=== PATIENT | male | born 1945 | race Caucasian/White ===

== ENCOUNTER 2022-01-12 12:44 | Outpatient (REF) | payer MEDICARE, SELFPAY ==
[2022-01-12 14:20] LABS: Basophils Absolute Auto 0.04 K/uL (0.00-0.30); Basophils Percent Auto 0.5 % (0.0-3.0); Eosinophils Absolute Auto 0.12 K/uL (0.00-0.50); Eosinophils Percent Auto 1.4 % (0.0-7.0); Hematocrit 45.8 % (37.0-53.0); Immature Granulocytes Abs Auto 0.02 K/uL (0.00-0.30); Lymphocytes Percent Auto 9.4 % (20-44); Mean Corpuscular HGB Conc 33 gm/dL (32-36); Mean Corpuscular Hemoglobin 30 pg (26-34); Mean Corpuscular Volume 91 fL (80-100); Monocytes Percent Auto 7.2 % (0.0-11.0); Neutrophils Percent Auto 81.3 % (42.0-72.0); Platelet Count* 235 K/uL (140-440); RDW Coefficient of Variation % 13.1 % (11.5-15.5); Red Blood Count 5.04 m/uL (4.30-5.90); White Blood Count* 8.63 K/uL (4.50-11.00)
[2022-01-12 14:29] LABS: Slide Review Reflex No
[2022-01-12 14:52] LABS: Chloride* 104 mmol/L (96-114); Potassium* 4.5 mmol/L (3.6-5.1); Sodium* 141 mmol/L (135-149)
[2022-01-12 14:54] LABS: Cholesterol* 181 mg/dL (90-199)
[2022-01-12 14:55] LABS: Blood Urea Nitrogen* 28 mg/dL (7-30); Calcium* 9.4 mg/dL (8.4-10.6); Carbon Dioxide* 28 mmol/L (20-32); Estimated Glomerular Filt Rate 77 ml/min; Glucose* 81 mg/dL (60-115); Triglycerides* 128 mg/dL (40-149)
[2022-01-12 14:56] LABS: HDL Cholesterol* 43 mg/dL (>=40); LDL Cholesterol Calculated 112 mg/dL (<100)
== END 2022-01-12 12:45 | disposition home or self-care (01) ==
LOC: NPINS 12:44
PROVIDERS: PCP Family Medicine; Visit Provider Nurse Practitioner Gerontology
DX: E78.5 Hyperlipidemia, unspecified (principal); Z79.899 Other long term (current) drug therapy
CPT/HCPCS: 80048; 80061; 85025

== ENCOUNTER 2022-02-22 17:25 | Inpatient (IN) | payer MEDICARE, SELFPAY ==
[2022-02-22 17:42] VITALS: BP 121/78; PULSE 120; RESP 24; TEMP 37.1; O2SAT 93; BMI 23.4
--- NOTE | 2022-02-22 17:51 | CRLHL7_ITS ---
For Patients: As a result of the Cures Act, medical imaging exams and procedure reports are released immediately into your electronic medical record. You may view this report before your referring provider. If you have questions, please contact your health care provider. Indication: Shortness of breath, fever Comparison: None available. Technique: Single AP view chest Findings: There is hyperinflation and chronic interstitial change. There is left basilar pleural effusion with adjacent compressive atelectasis versus infiltrates. The right hemithorax is clear. The cardiac silhouette is enlarged with a tortuous thoracic aorta. The bony thorax is grossly intact. Impression: Left basilar pleural effusion with adjacent compressive atelectasis versus infiltrates. Dictated by Nam Ortiz MD @ 02/22/2022 6:50:26 PM (Electronically Signed)
--- NOTE | 2022-02-22 17:52 | ED_ITS ---
HPI - General Adult General Chief complaint: Fever Stated complaint: Fever Time Seen by Provider: 02/22/22 17:35 History of Present Illness HPI narrative: This 76-year-old male comes in with his daughter. He lives in the assisted living facility nearby and apparently does not get any extra resources for living there other than the place to live. He reports that he did drink some water yesterday which he aspirated. Today he reports some mild cough and shortness of breath and was noted to have a temperature of 100.3?. He also has tachycardia with heart rate around 120 beats per minute. Oximetry is at 93% on room air. He does have a history of throat cancer for which she is not undergoing any treatment currently. Related Data Home Medications Medication Instructions Recorded Confirmed amlodipine 5 mg tablet mg 02/22/22 atenolol 50 mg tablet mg 02/22/22 carbidopa 25 mg-levodopa 100 mg tab 02/22/22 tablet lisinopril 20 mg tablet mg 02/22/22 Allergies Allergy/AdvReac Type Severity Reaction Status Date / Time No Known Drug Allergies Allergy Verified 02/22/22 17:41 Review of Systems Status of ROS: Reports: 10 or more systems reviewed and unremarkable except as noted in History and below Narrative: Constitutional: No fevers, no weight gain or loss. Eyes: No discharge. No vision changes. HENT: No congestion, no sore throat, no ear pain. Cardiovascular: No chest pain, no palpitations. Respiratory: Occasional cough and mild shortness of breath. Gastrointestinal: No abdominal pain, no vomiting, no diarrhea. Genitourinary: No dysuria, no hematuria. Musculoskeletal: Normal range of motion. Skin: No rashes, no pruritis. Neurological: No dizziness, weakness, sensory change, speech change. Endo/Heme/Allergies: No bruising or bleeding. No polydipsia. Pysch: no suicidality, no anxiety, no insomnia. All other systems reviewed and are negative. [facility] Social History Smoking Status: Smoker, status unknown Exam Narrative: Exam Narrative: Constitutional: Well-developed, well-nourished, no acute distress. HEENT: Normocephalic, atraumatic. Neck: Normal range of motion. Nontender. Supple. Heart: Regular. No murmurs. Tachycardia. Intact distal pulses. Lungs: Clear to auscultation. No chest discomfort. No wheezes, rhonchi, or rales. Abdomen: Normal bowel sounds. Nontender. No rebound tenderness. Genitalia: Deferred. Back: No midline tenderness. Normal range of motion. Extremities: Normal range of motion. No injury. Skin: Intact. No rash. Warm. No erythema or pallor. Neurologic: No altered sensation. No weakness. Alert and oriented. Psychiatric: No suicidality. No anxiety or depression. No insomnia. Nursing notes and vitals signs are reviewed. Const: Vital Signs, click to edit/add: Vital Signs - 24 hr 02/22/22 17:42 02/22/22 18:01 02/22/22 18:24 Temperature 98.7 F Pulse Rate [Right Pulse Oximeter] 120 H 98 Respiratory Rate 24 26 H Blood Pressure [Ri ght Upper Arm] 121/78 121/76 Pulse Oximetry 93 94 93 Oxygen Delivery Me thod Room Air Room Air Room Air 02/22/22 19:30 Temperature Pulse Rate [Right Pulse Oximeter] 97 Respiratory Rate 12 Blood Pressure [Ri ght Upper Arm] 131/79 Pulse Oximetry 96 Oxygen Delivery Me thod Course Vital Signs Vital signs: Initial Vital Signs Temperature 98.7 F 02/22/22 17:42 Temperature Source Temporal Artery Scan 02/22/22 17:42 Pulse Rate 120 H 02/22/22 17:42 Respiratory Rate 24 02/22/22 17:42 Blood Pressure 121/78 02/22/22 17:42 Blood Pressure Mean 92 02/22/22 17:42 Blood Pressure Position Sitting 02/22/22 17:42 Pulse Oximetry 93 02/22/22 17:42 Oxygen Delivery Method 02/22/22 17:42 Vital Signs Temperature 98.7 F 02/22/22 17:42 Pulse Rate 120 H 02/22/22 17:42 Respiratory Rate 24 02/22/22 17:42 Blood Pressure 121/78 02/22/22 17:42 Pulse Oximetry 93 02/22/22 17:42 Oxygen Delivery Method 02/22/22 17:42 Temperature 98.7 F 02/22/22 17:42 Pulse Rate 97 02/22/22 19:30 Respiratory Rate 12 02/22/22 19:30 Blood Pressure 131/79 02/22/22 19:30 Pulse Oximetry 96 02/22/22 19:30 Oxygen Delivery Method 02/22/22 18:24 Medical Decision Making [facility] Narrative Medical decision making narrative: This patient comes in with the suspicion of a aspiration pneumonia. He does arrive with tachypnea and tachycardia. He is maintaining sufficient oximetry on room air. He was noted to have a temperature of 100.3? F. An IV was established where he received a L of normal saline intravenously. His lactate returns at 2.0. Blood cultures were drawn. His white count is elevated at around 15,000. COVID and influenza were both negative. Chest x-ray does show evidence of a evolving infiltrate. The patient received IV doses of Rocephin and Zithromax. I did speak with the hospitalist over the horizon targeting supervisor, Dr. Logan, who will arrange for his admission when a bed becomes available. Lab Data Labs: Lab Results 02/22/22 02/22/22 02/22/22 Range/Units 17:45 17:45 17:45 WBC 15.79 H (4.50-11.00) K/uL RBC 4.74 (4.30-5.90) m/uL Hgb 14.1 (13.5-17.5) gm/dL Hct 41.8 (37.0-53.0) % MCV 88 (80-100) fL MCH 30 (26-34) pg MCHC 34 (32-36) gm/dL RDW Coeff of [place] 12.8 (11.5-15.5) % Plt Count 300 (140-440) K/uL Neut % (Auto) 91.1 H (42.0-72.0) % Lymph % (Auto) 1.9 L (20-44) % Finney % (Auto) 6.6 (0.0-11.0) % Eos % (Auto) 0.0 (0.0-7.0) % Baso % (Auto) 0.1 (0.0-3.0) % Neut # (Auto) 14.40 H (1.7-7.0) K/uL Lymph # (Auto) 0.30 L (0.90-2.90) K/uL Finney # (Auto) 1.00 H (0.00-0.90) K/UL Eos # (Auto) 0.00 (0.00-0.50) K/uL Baso # (Auto) 0.00 (0.00-0.30) K/uL Abs Immat Gran (auto) 0.04 (0.00-0.30) K/uL VBG pH (7.32-7.43) VBG pCO2 (40-50) mmHG VBG pO2 (25-47) mmHG VBG HCO3 (21-28) mmol/L Sodium 134 L (135-149) mmol/L Potassium 3.9 (3.6-5.1) mmol/L Chloride 99 (96-114) mmol/L Carbon Dioxide 28 (20-32) mmol/L BUN 23 (7-30) mg/dL Creatinine 1.1 (0.5-1.5) mg/dL Estimated Creat Clear 62.55 Estimated GFR 69 ml/min Glucose 162 H (60-115) mg/dL Lactate 2.0 H (0.5-1.9) mmol/L Calcium 9.4 (8.4-10.6) mg/dL SARS-CoV-2 (PCR) (Negative) Influenza Type A (PCR) (Negative) Influenza Type B (PCR) (Negative) 02/22/22 02/22/22 Range/Units 17:51 19:16 WBC (4.50-11.00) K/uL RBC (4.30-5.90) m/uL Hgb (13.5-17.5) gm/dL Hct (37.0-53.0) % MCV (80-100) fL MCH (26-34) pg MCHC (32-36) gm/dL RDW Coeff of [place] (11.5-15.5) % Plt Count (140-440) K/uL Neut % (Auto) (42.0-72.0) % Lymph % (Auto) (20-44) % Finney % (Auto) (0.0-11.0) % Eos % (Auto) (0.0-7.0) % Baso % (Auto) (0.0-3.0) % Neut # (Auto) (1.7-7.0) K/uL Lymph # (Auto) (0.90-2.90) K/uL Finney # (Auto) (0.00-0.90) K/UL Eos # (Auto) (0.00-0.50) K/uL Baso # (Auto) (0.00-0.30) K/uL Abs Immat Gran (auto) (0.00-0.30) K/uL VBG pH 7.415 (7.32-7.43) VBG pCO2 43 (40-50) mmHG VBG pO2 37.1 (25-47) mmHG VBG HCO3 27 (21-28) mmol/L Sodium (135-149) mmol/L Potassium (3.6-5.1) mmol/L Chloride (96-114) mmol/L Carbon Dioxide (20-32) mmol/L BUN (7-30) mg/dL Creatinine (0.5-1.5) mg/dL Estimated Creat Clear Estimated GFR ml/min Glucose (60-115) mg/dL Lactate (0.5-1.9) mmol/L Calcium (8.4-10.6) mg/dL SARS-CoV-2 (PCR) Negative SARS-CoV-2 (Negative) Influenza Type A (PCR) Negative PCR FLU A (Negative) Influenza Type B (PCR) Negative PCR FLU B (Negative) Imaging Data Chest x-ray: Radiologist's impression: Left basilar pleural effusion with adjacent compressive atelectasis versus infiltrates. ECG Data Attestation: I personally reviewed and interpreted this ECG as follows: Interpretation: Wide QRS rhythm. Left bundle branch block. Rate is 114 beats per minute. Discharge Plan Discharge Clinical Impression: Community acquired pneumonia Patient Disposition: Admitted As Inpatient Condition: Unchanged Prescriptions: No Action lisinopril 20 mg tablet Label Comments: Take 1 tablet by mouth every morning amlodipine 5 mg tablet Label Comments: Take 1 tablet by mouth every morning carbidopa-levodopa 25-100 mg tablet Label Comments: TAKE 1 TABLET BY MOUTH THREE TIMES DAILY atenolol 50 mg tablet Label Comments: TAKE 1 TABLET BY MOUTH DAILY Follow Up/Referrals: Francisco Navarro MD [Primary Care Provider] -
[2022-02-22 18:01] VITALS: O2SAT 94
[2022-02-22 18:07] LABS: Basophils Percent Auto 0.1 % (0.0-3.0); Hematocrit 41.8 % (37.0-53.0); Hemoglobin* 14.1 gm/dL (13.5-17.5); Immature Granulocytes Abs Auto 0.04 K/uL (0.00-0.30); Lymphocytes Percent Auto 1.9 % (20-44); Mean Corpuscular HGB Conc 34 gm/dL (32-36); Mean Corpuscular Hemoglobin 30 pg (26-34); Mean Corpuscular Volume 88 fL (80-100); Monocytes Percent Auto 6.6 % (0.0-11.0); Neutrophils Percent Auto 91.1 % (42.0-72.0); Platelet Count* 300 K/uL (140-440); RDW Coefficient of Variation % 12.8 % (11.5-15.5); Red Blood Count 4.74 m/uL (4.30-5.90); White Blood Count* 15.79 K/uL (4.50-11.00)
[2022-02-22 18:09] LABS: Slide Review Reflex No
[2022-02-22] MEDS: 0.9 % SODIUM CHLORIDE 1000 ml 1,000 ML IV (18:10)
[2022-02-22 18:17] LABS: Chloride* 99 mmol/L (96-114); Potassium* 3.9 mmol/L (3.6-5.1); Sodium* 134 mmol/L (135-149)
[2022-02-22 18:19] LABS: Creatinine* 1.1 mg/dL (0.5-1.5); Est. Creatinine Clearance* 62.55; Estimated Glomerular Filt Rate 69 ml/min
[2022-02-22 18:20] LABS: Blood Urea Nitrogen* 23 mg/dL (7-30); Calcium* 9.4 mg/dL (8.4-10.6); Carbon Dioxide* 28 mmol/L (20-32); Glucose* 162 mg/dL (60-115)
[2022-02-22 18:24] VITALS: BP 121/76; PULSE 98; RESP 26; O2SAT 93
[2022-02-22 18:44] LABS: PCR FLU A Negative PCR FLU A (Negative); PCR FLU B Negative PCR FLU B (Negative)
[2022-02-22 18:45] LABS: SARS PCR* Negative SARS-CoV-2 (Negative)
[2022-02-22 19:30] VITALS: BP 131/79; PULSE 97; RESP 12; O2SAT 96
[2022-02-22] MEDS: cefTRIAXone 1 GM in 0.9 % SODIUM CHLORIDE Mini-bag 100 ML IVPB (19:41)
[2022-02-22 19:46] LABS: HCO3 VBG 27 mmol/L (21-28); PCO2 VBG 43 mmHG (40-50); PO2 VBG 37.1 mmHG (25-47); pH VBG 7.415 (7.32-7.43)
[2022-02-22] MEDS: AZITHROMYCIN 100 MG/ML inj 500 MG IVPB (20:13)
--- NOTE | 2022-02-22 21:09 | ED.NURSE ---
Report given to JUANIS Winn. VSS. Daughter, Hallie, aware of plan for admission. Pt resting comfortably on cot. Call light within reach.
[2022-02-22 21:58] VITALS: BP 105/62; PULSE 93; RESP 18; TEMP 36.7; O2SAT 96
[2022-02-23] VITALS (14 sets, daily range): BP systolic 90–132; BP diastolic 53–81; PULSE 79–111; RESP 17–24; TEMP 36.5–38.2; O2SAT 91–99
--- NOTE | 2022-02-23 05:22 | ED.NURSE ---
Pt attempted to drink water sitting with HOB at 90 degree angle, small sip, coughing immediately after. kb
--- NOTE | 2022-02-23 07:23 | ED.NURSE ---
entered the room and patient is sleeping in a hospital bed snoring. patient has call light within reach. HOB is elevated at about 30-45 degrees.
[2022-02-23] MEDS: 0.9 % SODIUM CHLORIDE 1000 ml 1,000 ML 75 ML IV ×2 (07:31→16:10)
[2022-02-23 09:03] LABS: Lactate* 0.8 mmol/L (0.5-1.9)
[2022-02-23 09:05] LABS: Basophils Percent Auto 0.1 % (0.0-3.0); Eosinophils Percent Auto 0.2 % (0.0-7.0); Immature Granulocytes Abs Auto 0.04 K/uL (0.00-0.30); Mean Corpuscular HGB Conc 33 gm/dL (32-36); Mean Corpuscular Hemoglobin 30 pg (26-34); Mean Corpuscular Volume 89 fL (80-100); Monocytes Percent Auto 7.7 % (0.0-11.0); Neutrophils Percent Auto 88.8 % (42.0-72.0); Platelet Count* 266 K/uL (140-440); RDW Coefficient of Variation % 12.9 % (11.5-15.5); Red Blood Count 4.03 m/uL (4.30-5.90); White Blood Count* 17.25 K/uL (4.50-11.00)
[2022-02-23 09:09] LABS: Slide Review Reflex No
[2022-02-23 09:25] LABS: Chloride* 102 mmol/L (96-114); Sodium* 137 mmol/L (135-149)
[2022-02-23 09:26] LABS: Potassium* 4.1 mmol/L (3.6-5.1)
[2022-02-23 09:28] LABS: Creatinine* 0.9 mg/dL (0.5-1.5); Estimated Glomerular Filt Rate 87 ml/min
[2022-02-23 09:29] LABS: Blood Urea Nitrogen* 22 mg/dL (7-30); Calcium* 8.7 mg/dL (8.4-10.6); Carbon Dioxide* 26 mmol/L (20-32); Glucose* 117 mg/dL (60-115)
[2022-02-23 09:45] LABS: Procalcitonin* 3.93 ng/mL (<0.50)
[2022-02-23 09:58] LABS: C Reactive Protein* 25.7 mg/dL (0.5-1.0)
--- NOTE | 2022-02-23 10:28 | W.PC.EDHO ---
Primary Language: Preferred Language: Orientation Status: [] Alert & Oriented [] Slight Confusion [] Known Dx Dementia Transfers By: [] Assist of 1 [] Assist of 2 [] Lift Active Medications Generic Name Dose Route Start Last Admin Trade Name Lisa PRN Reason Stop Dose Admin Sodium Chloride 1,000 mls @ 75 mls/hr 02/23/22 07:20 02/23/22 07:31 0.9 % Sodium Chloride 1000 Ml IV 75 mls/hr .[id number] KRISTINA Administration Discontinued Medications Generic Name Dose Route Start Last Admin Trade Name Lisa PRN Reason Stop Dose Admin Azithromycin 500 mg 02/22/22 19:15 02/22/22 20:13 Azithromycin 100 Mg/Ml Inj IVPB 02/22/22 19:16 500 mg ONCE ONE Administration Sodium Chloride 1,000 mls @ 1,000 mls/hr 02/22/22 18:00 02/22/22 19:10 0.9 % Sodium Chloride 1000 Ml IV 02/22/22 18:59 Infused .Q1H KRISTINA Infusion Ceftriaxone Sodium 1 gm/ 100 mls @ 200 mls/hr 02/22/22 19:15 02/22/22 20:11 Sodium Chloride IVPB 02/22/22 19:16 Infused ONCE ONE Infusion Description of Symptoms ED Triage Present Problem pt had coughing episode yesterday while eating, Description today has temp of 100.3 at home and pulse 120's, pt has pain in left upper abdomen, coughing at times and congested ED Triage Date of Onset of 02/22/22 Symptoms Oxygen Administration Pulse Oximetry 93 Pulse Oximetry 95 Pulse Oximetry 96 Pulse Oximetry 95 Pulse Oximetry 94 Pulse Oximetry 95 Pulse Oximetry 91 Pulse Oximetry 93 Pulse Oximetry 95 Pulse Oximetry 96 Pulse Oximetry 96 Pulse Oximetry 93 Pulse Oximetry 94 Pulse Oximetry 93 Oxygen Delivery Method Room Air Oxygen Delivery Method Room Air Oxygen Delivery Method Room Air Oxygen Delivery Method Room Air Oxygen Delivery Method Room Air Oxygen Delivery Method Room Air Oxygen Delivery Method Room Air Oxygen Delivery Method Room Air Oxygen Delivery Method Room Air Cardiac Monitoring EKG Method 12 Lead
--- NOTE | 2022-02-23 13:08 | PM.IMHP1 ---
Hospitalist- H&P: HPI History of Present Illness Date Seen: 02/23/22 Chief complaint: Fever Narrative: ADMISSION HISTORY AND PHYSICAL - HOSPITALIST Chief Complaint: Weakness, cough. Left back pain. HPI: 76-year-old patient from across the street at [facility] presents with about a week upper respiratory symptoms and weakness. He describes a runny nose, cough, decreased appetite. Feeling feverish. He also describes feeling weak and not having the energy to do regular activities. He lives with his in assisted living apartment. And he even felt too weak to make their meals or walk to dining area to turkey picker meals. I've updated the PFSH, medications and allergies in the [facility] tabs. INVESTIGATIONS: LABS/MICRO/ECG/IMAGING Leukocytosis noted at 17.25 Hemoglobin is 12 PH is normal Chemistries are unrevealing. His glucose is 117. CRP 25.7, prolactin 3.93 Previous elevated lactate, patient has been in the ED since last night, is improved. Negative SARS-CoV-2 and influenza Chest x-ray last night Left basilar pleural effusion with adjacent compressive atelectasis versus infiltrates. Blood cultures pending, drawn last night ECG reviewed - left bundle branch block REVIEW OF SYSTEMS: 12-point ROS completed with patient and negative unless otherwise stated in HPI or below. PHYSICAL EXAM: CODE STATUS: CONSTITUTIONAL: Conversive, good historian. A/O. Knows setting and context. VITAL SIGNS: see record. HEENT: Normocephalic, atraumatic. PERRL, EOMI, conjunctivae pink, no scleral icterus. Ears and nose externally normal. Pharynx normal. NECK: No JVD. No carotid bruit, no thyromegaly, no adenopathy. CHEST: Clear to auscultation bilaterally HEART: S1 and S2 normal. No harsh murmurs. Edema MUSCULOSKELETAL: No gross joint deformity or swelling. NEURO: Cranial nerves intact. Grossly intact. No asymmetric findings. SKIN: No rashes, petechiae, concerning changes PSYCHIATRIC: Euthymic. 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 Previously heavy smoker. Lives across the [address] at [facility]. Smoking Status: Former smoker How often do you have a drink containing alcohol: 2-3 times a week AUDIT-C Alcohol total score: 3 Meds Home Medications and Allergies Home Medications Medication Instructions Recorded Confirmed Type amlodipine 5 mg tablet 5 mg PO DAILY 02/22/22 02/23/22 History atenolol 50 mg tablet 50 mg PO DAILY 02/22/22 02/23/22 History carbidopa 25 mg-levodopa 100 mg 1 tab PO TID 02/22/22 02/23/22 History tablet lisinopril 20 mg tablet 20 mg PO DAILY 02/22/22 02/23/22 History Allergies Allergy/AdvReac Type Severity Reaction Status Date / Time No Known Drug Allergies Allergy Verified 02/22/22 17:41 Exam Const: Vital Signs, click to edit/add: Vital Signs - 24 hr 02/22/22 17:42 02/22/22 18:01 02/22/22 18:24 Temperature 98.7 F Pulse Rate Pulse Rate [Left R adial] Pulse Rate [Right Pulse Oximeter] 120 H 98 Respiratory Rate 24 26 H Blood Pressure Blood Pressure [Le ft Arm] Blood Pressure [Ri ght Upper Arm] 121/78 121/76 Pulse Oximetry 93 94 93 Oxygen Delivery Me thod Room Air Room Air Room Air 02/22/22 19:30 02/22/22 21:58 02/22/22 23:31 Temperature 98.1 F Pulse Rate Pulse Rate [Left R adial] Pulse Rate [Right Pulse Oximeter] 97 93 Respiratory Rate 12 18 Blood Pressure Blood Pressure [Le ft Arm] Blood Pressure [Ri ght Upper Arm] 131/79 105/62 Pulse Oximetry 96 96 Oxygen Delivery Me thod Room Air Room Air 02/23/22 00:32 02/23/22 02:06 02/23/22 02:07 Temperature Pulse Rate 93 89 83 Pulse Rate [Left R adial] Pulse Rate [Right Pulse Oximeter] Respiratory Rate Blood Pressure 97/67 Blood Pressure [Le ft Arm] Blood Pressure [Ri ght Upper Arm] Pulse Oximetry 95 93 91 Oxygen Delivery Me thod 02/23/22 04:00 02/23/22 06:00 02/23/22 07:21 Temperature Pulse Rate 82 81 Pulse Rate [Left R adial] Pulse Rate [Right Pulse Oximeter] 81 Respiratory Rate 24 Blood Pressure Blood Pressure [Le ft Arm] Blood Pressure [Ri ght Upper Arm] 90/53 L Pulse Oximetry 95 94 96 Oxygen Delivery Me thod Room Air 02/23/22 06:45 02/23/22 08:00 02/23/22 09:00 Temperature Pulse Rate Pulse Rate [Left R adial] Pulse Rate [Right Pulse Oximeter] 79 79 83 Respiratory Rate 24 23 17 Blood Pressure Blood Pressure [Le ft Arm] Blood Pressure [Ri ght Upper Arm] 97/58 L 107/59 L 104/56 L Pulse Oximetry 95 95 93 Oxygen Delivery Hi thod Room Air Room Air Room Air 02/23/22 11:36 Temperature 98.7 F Pulse Rate Pulse Rate [Left R adial] 90 Pulse Rate [Right Pulse Oximeter] Respiratory Rate 18 Blood Pressure Blood Pressure [Le ft Arm] 128/81 Blood Pressure [Ri ght Upper Arm] Pulse Oximetry 94 Oxygen Delivery Me thod Room Air Hospitalist - H&P: Result Labs Labs: Short CBC 02/22/22 02/23/22 Range/Units 17:45 08:54 WBC 15.79 H 17.25 H (4.50-11.00) K/uL Hgb 14.1 12.0 L (13.5-17.5) gm/dL Hct 41.8 36.0 L (37.0-53.0) % Plt Count 300 266 (140-440) K/uL BMP 02/22/22 02/23/22 17:45 08:54 Sodium 134 L 137 Potassium 3.9 4.1 Chloride 99 102 Carbon Dioxide 28 26 BUN 23 22 Creatinine 1.1 0.9 Glucose 162 H 117 H Calcium 9.4 8.7 Assessment and Plan Assessment and plan (1) Community acquired pneumonia: Problem comment: Rocephin, azithromycin started last night in the ED No evidence of acute respiratory failure or metabolic or respiratory acid-base failure Inflammatory markers like white blood cell count, CRP, prolactin are quite high - trend and follow With background significant smoking history and obstructive pneumonia secondary to mass is on my radar Status: Acute (2) Hypertension: Problem comment: Holding the 3 home meds for now. Pressure has come up nicely with fluids. Certainly can add back judiciously. Status: Acute (3) Smoking greater than 40 pack years: Problem comment: Noted Status: Acute
[2022-02-23] MEDS: LACTATED RINGERS 1000 ML 500 ML IV (13:37)
[2022-02-23] MEDS: cefTRIAXone 1 GM in 0.9 % SODIUM CHLORIDE Mini-bag 100 ML IVPB (13:38)
[2022-02-23 13:56] LABS: Appearance Urine Slightly Cloudy (Clear); Bilirubin Urine 1+ (Negative); Blood Urine Negative (Negative); Color Urine Amber (Yellow); Glucose Urine Negative (Negative); Ketones Urine Trace (Negative); Leukocyte Esterase Urine Negative (Negative); Nitrite Urine Positive (Negative); Protein Urine 2+ (Negative); Specific Gravity Urine 1.025 (1.000-1.030); Urobilinogen Urine 0.2 (0.2-1.0); pH Urine 5.5 (5.0-8.5)
[2022-02-23] MEDS: AZITHROMYCIN 500 MG in 0.9 % SODIUM CHLORIDE 250 ml 250 ML 255 MG IVPB (14:15)
[2022-02-23 14:20] LABS: Amorphous Sediment Urine Moderate; Bacteria Urine Moderate; Mucus Urine Moderate; RBC Urine 0-2 (0-2); Squamous Epithelial Cell Urine Few (None-Few)
[2022-02-23] MEDS: CARBIDOPA-LEVODOPA 25-100 TABLET 1 TAB PO ×2 (14:40→20:26)
[2022-02-23] MEDS: ENOXAPARIN 40 MG/0.4 ML INJ SUBCUT (20:26)
--- NOTE | 2022-02-23 21:51 | PC.NURSE ---
Shift Note [id number]: Pt friendly and cooperative, delayed but appropriate responses in conversation. Moves well with assist x1 with walker and GB. LS coarse with crackles on left side posteriorly. Afebrile. VS WNL. Moist cough without sputum production, pt encouraged to TCDB. SpO2 90's on RA. Maintenance fluids running. Decreased appetite, pt did consume a jell-O and sherbet this evening. Pt also states it has been quite some time since he had a BM. He drank half a glass of warm prune juice but has had no BM this shift.
[2022-02-24] VITALS (8 sets, daily range): BP systolic 76–133; BP diastolic 59–77; PULSE 84–112; RESP 18–20; TEMP 36.8–37.9; O2SAT 91–94
--- NOTE | 2022-02-24 06:01 | PC.NURSE ---
Shift Note [id number]: Pt friendly and cooperative, pt's responses are a bit delayed but answers questions appropriately. Pt. assist x1 with walker and GB. LS coarse w/crackles on left side posteriorly. Pt. Afebrile. VS WNL. Moist cough w/o sputum production, pt's SpO2 90's on RA. Pt. asked for an orange sherbert. Pt. slept well most of the night and did not want to get up to use BR. Pt. denies pain, N/V/SOB.
[2022-02-24 08:59] LABS: HCO3 VBG 25 mmol/L (21-28); Ionized Calcium* 1.14 mmol/L (1.11-1.30); Lactate* 1.2 mmol/L (0.5-1.9); PCO2 VBG 33 mmHG (40-50)
[2022-02-24 09:02] LABS: Basophils Percent Auto 0.1 % (0.0-3.0); Eosinophils Percent Auto 1.2 % (0.0-7.0); Hematocrit 36.7 % (37.0-53.0); Hemoglobin* 12.3 gm/dL (13.5-17.5); Immature Granulocytes Abs Auto 0.06 K/uL (0.00-0.30); Lymphocytes Percent Auto 2.9 % (20-44); Mean Corpuscular HGB Conc 34 gm/dL (32-36); Mean Corpuscular Hemoglobin 30 pg (26-34); Mean Corpuscular Volume 90 fL (80-100); Monocytes Percent Auto 9.3 % (0.0-11.0); Neutrophils Percent Auto 86.1 % (42.0-72.0); Platelet Count* 299 K/uL (140-440); RDW Coefficient of Variation % 13.1 % (11.5-15.5); Red Blood Count 4.09 m/uL (4.30-5.90); White Blood Count* 15.24 K/uL (4.50-11.00)
[2022-02-24 09:04] LABS: Slide Review Reflex No
[2022-02-24] MEDS: CARBIDOPA-LEVODOPA 25-100 TABLET 1 TAB PO ×3 (09:04→20:49)
[2022-02-24 09:07] LABS: PO2 VBG 52.2 mmHG (25-47); pH VBG 7.494 (7.32-7.43)
[2022-02-24 09:20] LABS: INR 1.29 (0.91-1.10); Prothrombin Time 16.5 Seconds
[2022-02-24 09:36] LABS: Chloride* 104 mmol/L (96-114); Potassium* 3.8 mmol/L (3.6-5.1); Sodium* 136 mmol/L (135-149)
[2022-02-24 09:39] LABS: Carbon Dioxide* 23 mmol/L (20-32); Creatinine* 0.9 mg/dL (0.5-1.5); Estimated Glomerular Filt Rate 87 ml/min
[2022-02-24 09:40] LABS: Blood Urea Nitrogen* 17 mg/dL (7-30); Calcium* 8.7 mg/dL (8.4-10.6); Glucose* 122 mg/dL (60-115); Magnesium* 1.9 mg/dL (1.5-2.6)
[2022-02-24 09:49] LABS: NT Pro B Type NatriureticPept* 3460 PG/mL (0-450)
[2022-02-24 09:52] LABS: Troponin I* 0.03 ng/mL (0.01-0.04)
[2022-02-24 09:56] LABS: Procalcitonin* 2.73 ng/mL (<0.50)
--- NOTE | 2022-02-24 13:26 | PM.IMPN1 ---
Progress Note: A&P Assessment and plan (1) Community acquired pneumonia: Problem details: Rocephin, azithromycin started last night in the ED No evidence of acute respiratory failure or metabolic or respiratory acid-base failure Inflammatory markers like white blood cell count, CRP, prolactin are quite high - trend and follow With background significant smoking history and obstructive pneumonia secondary to mass is on my radar Status: Acute (2) Hypertension: Problem details: Holding the 3 home meds for now. Pressure has come up nicely with fluids. Certainly can add back judiciously. Status: Acute (3) Smoking greater than 40 pack years: Problem details: Noted Status: Acute (4) Parkinsons: Problem details: Moderate. Continue Sinemet. Mild rigidity and masked expression. Status: Acute Subjective Date Seen: 02/24/22 Interval history: Daily Progress Note - Hospital Medicine Day #: 2 CC: Weakness, Parkinson's disease, left lower lobe pneumonia. OVERNIGHT UPDATES FROM STAFF & MED, LAB, IMAGING UPDATES At [place] looks about the same. He did eat some breakfast. Briefly hypotensive this morning 76/59. However that was not maintained. T-max was 7:00 p.m. last night of 100.7. He remembers meeting me last night. I have asked OT and PT to work with him. I have asked for a [place]. He follows my commands this morning. CBC reflects a peaked leukocytosis, however still elevated. Hemoglobin is stable Platelets are stable INR 1.29 Blood gas stable Chemistries un remarkable CRP has dropped from 25-9 Procalcitonin is dropped from 3.9-2.7 BNP is generally elevated at 3400, no baseline Urine culture no growth, blood culture x2 no growth CXR on admission Left basilar pleural effusion with adjacent compressive atelectasis versus infiltrates. Review of Systems: See subjective Cardiac: No new chest pain/pressure/palpitations. Respiratory: no new dyspnea. GI: No abdominal bloating Objective: Comfortable. Parkinson's typical masked face noted. Mild rigidity. Vitals: see above Lungs: Crackles noted in the left throughout the left suly thorax Cardiac: S1S2. Disposition/Potential discharge - Likely to return to previous living situation. Total time is 35 minutes with greater than 50% spent in counseling and coordination of care. Exam Const: Vital Signs, click to edit/add: Vital Signs - 24 hr 02/23/22 15:00 02/23/22 15:00 02/23/22 19:00 Temperature 97.7 F 100.7 F H Pulse Rate [Left R adial] 111 H 111 H 108 H Respiratory Rate 20 20 20 Blood Pressure [Le ft Arm] 132/74 131/71 Pulse Oximetry 93 93 Oxygen Delivery Me thod Room Air Room Air 02/23/22 23:00 02/23/22 23:00 02/24/22 03:00 Temperature 98.8 F 98.8 F Pulse Rate [Left R adial] 93 93 84 Respiratory Rate 18 18 18 Blood Pressure [Le ft Arm] 116/68 116/66 Pulse Oximetry 99 91 Oxygen Delivery Me thod Room Air Room Air 02/24/22 09:01 02/24/22 11:08 02/24/22 11:20 Temperature 98.2 F Pulse Rate [Left R adial] 112 H 108 H Respiratory Rate 20 Blood Pressure [Le ft Arm] 76/59 L 101/71 Pulse Oximetry 93 92 Oxygen Delivery Me thod Room Air Room Air 02/24/22 09:01 Temperature 98.8 F Pulse Rate [Left R adial] 90 Respiratory Rate 18 Blood Pressure [Le ft Arm] 116/66 Pulse Oximetry 93 Oxygen Delivery Me thod Room Air Labs Labs: Laboratory Results - last 24 hr 02/23/22 02/24/22 02/24/22 13:03 08:49 08:49 WBC 15.24 H RBC 4.09 L Hgb 12.3 L Hct 36.7 L MCV 90 MCH 30 MCHC 34 RDW Coeff of [place] 13.1 Plt Count 299 Neut % (Auto) 86.1 H Lymph % (Auto) 2.9 L Beaver % (Auto) 9.3 Eos % (Auto) 1.2 Baso % (Auto) 0.1 Neut # (Auto) 13.10 H Lymph # (Auto) 0.40 L Beaver # (Auto) 1.40 H Eos # (Auto) 0.20 Baso # (Auto) 0.00 Abs Immat Gran (auto) 0.06 INR VBG pH VBG pCO2 VBG pO2 VBG HCO3 Sodium 136 Potassium 3.8 Chloride 104 Carbon Dioxide 23 BUN 17 Creatinine 0.9 Estimated Creat Clear 68.80 Estimated GFR 87 Glucose 122 H Lactate Calcium 8.7 Ionized Calcium Jerry Magnesium 1.9 Troponin I 0.03 C-Reactive Protein 9.0 H NT-Pro-B Natriuret Pep 3460 H Procalcitonin 2.73 H Urine Color Marce A Urine Appearance Slightly Cloudy A Urine pH 5.5 Ur Specific Wentworth 1.025 Urine Protein 2+ A Urine Glucose (UA) Negative Urine Ketones Trace A Urine Blood Negative Urine Nitrite Positive A Urine Bilirubin 1+ A Urine Urobilinogen 0.2 Ur Leukocyte Esterase Negative Urine RBC 0-2 Urine WBC 2-5 Ur Squamous Epith Cells Few Amorphous Sediment Moderate A Urine Bacteria Moderate A Urine Mucus Moderate A Urine Yeast Few A 02/24/22 02/24/22 08:49 08:49 WBC RBC Hgb Hct MCV MCH MCHC RDW Coeff of [place] Plt Count Neut % (Auto) Lymph % (Auto) Beaver % (Auto) Eos % (Auto) Baso % (Auto) Neut # (Auto) Lymph # (Auto) Beaver # (Auto) Eos # (Auto) Baso # (Auto) Abs Immat Gran (auto) INR 1.29 H VBG pH 7.494 H VBG pCO2 33 L VBG pO2 52.2 H VBG HCO3 25 Sodium Potassium Chloride Carbon Dioxide BUN Creatinine Estimated Creat Clear Estimated GFR Glucose Lactate 1.2 Calcium Ionized Calcium Jerry 1.14 Magnesium Troponin I C-Reactive Protein NT-Pro-B Natriuret Pep Procalcitonin Urine Color Urine Appearance Urine pH Ur Specific [place]worth Urine Protein Urine Glucose (UA) Urine Ketones Urine Blood Urine Nitrite Urine Bilirubin Urine Urobilinogen Ur Leukocyte Esterase Urine RBC Urine WBC Ur Squamous Epith Cells Amorphous Sediment Urine Bacteria Urine Mucus Urine Yeast
[2022-02-24] MEDS: AZITHROMYCIN 250 MG TABLET 500 MG PO (13:44)
[2022-02-24] MEDS: cefTRIAXone 1 GM in 0.9 % SODIUM CHLORIDE Mini-bag 100 ML IVPB (13:45)
--- NOTE | 2022-02-24 16:02 | PC.SOCIAL ---
Phone call to Joellen at [facility] to find out what services pt currently has in place. Joellen reports that Pt is completely independent and resides on the assisted living side. Asked if it was possible for resident to have increased services. Joellen states that it is possible to increase some services with a rate increase. Joellen reports that they cannot do transports of two or any type of lift or stand when it comes to transporting. Informed Joellen that this worker will keep her updated on pt's progress and discharge plans. Phone call to Pt's daughter, Hallie. Hallie reports that she is the primary contact for pt. Provided an update to Hallie and informed her that social work will work on discharge planning for pt. Hallie reports that she had a conversation with Joellen at [facility] and states that Hallie is ok with increasing services and paying an additional rate if needed for pt. Informed Hallie that if [facility] cannot meet pt's needs then we would look at a SNF stay. Provided the phone number to social work for Hallie to reach if she has any more questions and informed her that this worker will keep her updated.
[2022-02-24] MEDS: ENOXAPARIN 40 MG/0.4 ML INJ SUBCUT (20:49)
[2022-02-24] MEDS: DOCUSATE SODIUM 100 MG CAPSULE PO (21:07)
[2022-02-24] MEDS: ACETAMINOPHEN 325 MG TABLET PO (22:10)
--- NOTE | 2022-02-24 23:44 | PC.NURSE ---
End of Shift: Patient pleasant and cooperative. Pain up to 4/10 with coughing. Temp max 100.2. PRN Tylenol given x1. Up to chair and bathroom with 1 assist, walker and gait belt. Tolerating regular diet with no nausea. Rash noted to MD alicia updated and in to see patient.
[2022-02-25] VITALS (12 sets, daily range): BP systolic 96–140; BP diastolic 69–88; PULSE 58–149; RESP 20–32; TEMP 36.8–38; O2SAT 91–94
--- NOTE | 2022-02-25 07:54 | PC.NURSE ---
END OF SHIFT NOTE: PT PLEASANT AND COOPERATIVE WITH CARES. VSS ON RA; AFEBRILE. PT AMBULATES WITH WALKER, GB, A1. SLEPT WELL NOC. WHEN ASKED HOW PT FELT THIS MORNING, PT'S RESPONSE WAS BEST I'VE FELT IN DAYS. THIS SHIFT WAS UNEVENTFUL.
[2022-02-25] MEDS: CARBIDOPA-LEVODOPA 25-100 TABLET 1 TAB PO ×3 (09:33→20:42)
--- NOTE | 2022-02-25 10:29 | CRLHL7_ITS ---
For Patients: As a result of the Century Cures Act, medical imaging exams and procedure reports are released immediately into your electronic medical record. You may view this report before your referring provider. If you have questions, please contact your health care provider. Indication: Obstructive pneumonia, history of breast cancer Technique: Volumetric multidetector CT images of the chest were obtained after the administration of IV contrast. 95 cc Isovue 370 low osmolar intravenous contrast Comparison: CT chest July 21, 2021 Findings: The thoracic inlet and thyroid gland are unremarkable. The thoracic aorta is non aneurysmal with mild to moderate scattered atherosclerotic calcification. There are questionable filling defects within the distal left subsegmental pulmonary arteries which may represent diminished flow versus small pulmonary emboli. No other filling defects are appreciated. There are somewhat reactive mediastinal and hilar lymph nodes. There is moderate central bronchial thickening and mucoid impaction predominantly of the lower lobe bronchi. There is demonstration of a moderate loculated left-sided pleural effusion with adjacent compressive atelectasis and/or infiltrates. There is mild thickening and enhancement of the pleura which may represent a component of empyema change. There is trace pericardial effusion appreciated. There is no evidence of pulmonary mass or suspicious pulmonary nodule. The partially visualized upper abdominal viscera are within normal limits. The thoracic vertebral body heights are grossly maintained with minimal endplate Schmorl`s defects. There is no significant spondylolisthesis or displaced fracture. Impression: Demonstration of somewhat multiloculated left-sided pleural effusion with adjacent compressive atelectasis and/or infiltrates with moderate central bronchial thickening and mucoid impaction. There is minimal enhancement and thickening of the pleura along the lung base which may represent a component of empyema. There is demonstration of questionable focal filling defect within the central right lower lobe subsegmental pulmonary artery versus diminished flow and admixture of contrast within atelectatic bronchovascular structures. No other pulmonary emboli are appreciated. Please note that all CT scans at this facility use dose modulation, iterative reconstruction, and/or weight-based dosing when appropriate to reduce radiation dose to as low as reasonably achievable. Dictated by Nam Ortiz MD @ 02/25/2022 1:54:04 PM (Electronically Signed)
[2022-02-25 10:46] LABS: HCO3 VBG 31 mmol/L (21-28); Ionized Calcium* 1.13 mmol/L (1.11-1.30); Lactate* 1.1 mmol/L (0.5-1.9); PCO2 VBG 46 mmHG (40-50); PO2 VBG 23.9 mmHG (25-47); pH VBG 7.432 (7.32-7.43)
[2022-02-25 10:47] LABS: Basophils Percent Auto 0.2 % (0.0-3.0); Eosinophils Percent Auto 1.6 % (0.0-7.0); Hemoglobin* 13.4 gm/dL (13.5-17.5); Immature Granulocytes Abs Auto 0.05 K/uL (0.00-0.30); Lymphocytes Percent Auto 2.9 % (20-44); Mean Corpuscular HGB Conc 33 gm/dL (32-36); Mean Corpuscular Hemoglobin 30 pg (26-34); Mean Corpuscular Volume 91 fL (80-100); Monocytes Percent Auto 4.8 % (0.0-11.0); Neutrophils Percent Auto 90.1 % (42.0-72.0); Platelet Count* 355 K/uL (140-440); RDW Coefficient of Variation % 13.3 % (11.5-15.5); White Blood Count* 13.42 K/uL (4.50-11.00)
[2022-02-25 10:49] LABS: Slide Review Reflex No
[2022-02-25 11:05] LABS: Chloride* 101 mmol/L (96-114); Sodium* 137 mmol/L (135-149)
[2022-02-25 11:06] LABS: Potassium* 3.5 mmol/L (3.6-5.1)
[2022-02-25 11:08] LABS: Aspartate Amino Transferase* 28 U/L (12-35); Carbon Dioxide* 28 mmol/L (20-32); Creatinine* 0.8 mg/dL (0.5-1.5); Estimated Glomerular Filt Rate 91 ml/min; Total Protein* 6.1 g/dL (6.0-8.3)
[2022-02-25 11:09] LABS: Alanine Aminotransferase* 8 U/L (4-50); Alkaline Phosphatase* 86 U/L (40-150); Blood Urea Nitrogen* 18 mg/dL (7-30); Calcium* 8.7 mg/dL (8.4-10.6); Glucose* 154 mg/dL (60-115); Magnesium* 1.9 mg/dL (1.5-2.6)
[2022-02-25 11:21] LABS: Troponin I* 0.04 ng/mL (0.01-0.04)
[2022-02-25 11:24] LABS: C Reactive Protein* 23.6 mg/dL (0.5-1.0)
[2022-02-25 11:25] LABS: Procalcitonin* 1.66 ng/mL (<0.50)
[2022-02-25 11:51] LABS: INR 1.24 (0.91-1.10)
[2022-02-25 13:02] LABS: NT Pro B Type NatriureticPept* 6720 PG/mL (0-450)
[2022-02-25] MEDS: 0.9 % SODIUM CHLORIDE 1000 ml 1,000 ML 500 ML IV (13:31)
--- NOTE | 2022-02-25 13:31 | PM.IMPN1 ---
Progress Note: A&P Assessment and plan (1) Community acquired pneumonia: Problem details: continue IV rocephin, PO Azithromycin day 3 No evidence of acute respiratory failure or metabolic or respiratory acid-base failure Inflammatory markers like white blood cell count, CRP, prolactin are quite high - trend and follow With background significant smoking history and obstructive pneumonia secondary to mass is on my radar Status: Acute (2) Atrial flutter with rapid ventricular response: Problem details: -in the setting of hypovolemia vs sepsis; LBBB. fluid bolus gently. IV diltizem for rate control. BNP elevated. Status: Acute (3) Hypertension: Problem details: Holding the 3 home meds for now. Pressure has come up nicely with fluids. Certainly can add back judiciously. Status: Acute (4) Smoking greater than 40 pack years: Problem details: Noted Status: Acute (5) Parkinsons: Problem details: Moderate. Continue Sinemet. Mild rigidity and masked expression. Status: Acute Subjective Date Seen: 02/25/22 Interval history: Daily Progress Note - Hospital Medicine Day #: 2 CC: Weakness, Parkinson's disease, left lower lobe pneumonia. OVERNIGHT UPDATES FROM STAFF & MED, LAB, IMAGING UPDATES Kevin looks about the same. He did eat some breakfast. OT notes some mild hypotension and tachycardia during assessment He follows my commands this morning. He thinks it is Tuesday; needs cuing from staff once in the restroom. CBC reflects a white blood cell count that is down trending, however his CRP has climbed from 9-23. Procalcitonin is down trending. 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 Hemoglobin is essentially stable. INR is still mildly abnormal 1.24 Blood gases stable without CO2 retention. Normal pH. Potassium is just a bit low at 3.5 otherwise he has normal electrolytes. Normal creatinine. Cultures are negative EKG showed a a widened QRS but still sinus. Left bundle branch block. This was on admission. He became intermittently tachycardic, updated EKG shows atrial flutter with variable AV block. He was placed on telemetry. He has been intermittently hypotensive as well. I've moved him to the CCU. Normal left ventricular size, mildly increased wall thickness, normal global systolic function, EF 57%. Septal wall motion abnormality, consistent with left bundle branch block Right ventricular cavity size is normal, global systolic RV function No significant valve disease No mention of atrial arrhythmia CT chest: CXR on admission Left basilar pleural effusion with adjacent compressive atelectasis versus infiltrates. Review of Systems: See subjective Cardiac: No new chest pain/pressure/palpitations. Respiratory: no new dyspnea. GI: No abdominal bloating Objective: Comfortable. Parkinson's typical masked face noted. Mild rigidity. Vitals: see above Lungs: Crackles noted in the left throughout the left suly thorax Cardiac: S1S2. Disposition/Potential discharge - Likely to return to previous living situation. Total time is 35 minutes with greater than 50% spent in counseling and coordination of care. Exam Const: Vital Signs, click to edit/add: Vital Signs - 24 hr 02/24/22 15:00 02/24/22 15:00 02/24/22 19:00 Temperature 99.0 F 99.9 F H Pulse Rate [Left R adial] 104 H 104 H 102 H Pulse Rate [Pulse Oximeter] Respiratory Rate 20 20 18 Blood Pressure [Le ft Arm] 133/69 128/77 Pulse Oximetry 94 94 Oxygen Delivery Me thod Room Air Room Air 02/24/22 22:10 02/24/22 23:47 02/25/22 00:00 Temperature 100.2 F H 100.2 F H Pulse Rate [Left R adial] 101 H Pulse Rate [Pulse Oximeter] Respiratory Rate 20 Blood Pressure [Le ft Arm] Pulse Oximetry Oxygen Delivery Me thod 02/25/22 00:00 02/25/22 03:15 02/25/22 07:00 Temperature 98.7 F Pulse Rate [Left R adial] Pulse Rate [Pulse Oximeter] 101 H 110 H Respiratory Rate 20 24 26 H Blood Pressure [Le ft Arm] 120/86 Pulse Oximetry 93 93 Oxygen Delivery Me thod Room Air Room Air 02/25/22 07:00 02/25/22 07:00 Temperature 98.6 F Pulse Rate [Left R adial] Pulse Rate [Pulse Oximeter] 110 H Respiratory Rate 26 H 26 H Blood Pressure [Le ft Arm] 127/76 Pulse Oximetry 94 94 Oxygen Delivery Me thod Room Air Room Air Labs Labs: Laboratory Results - last 24 hr 02/25/22 02/25/22 02/25/22 10:40 10:40 10:40 WBC 13.42 H RBC 4.50 Hgb 13.4 L Hct 41.0 MCV 91 MCH 30 MCHC 33 RDW Coeff of Florence 13.3 Plt Count 355 Neut % (Auto) 90.1 H Lymph % (Auto) 2.9 L Rosebud % (Auto) 4.8 Eos % (Auto) 1.6 Baso % (Auto) 0.2 Neut # (Auto) 12.10 H Lymph # (Auto) 0.40 L Rosebud # (Auto) 0.60 Eos # (Auto) 0.20 Baso # (Auto) 0.00 Abs Immat Gran (auto) 0.05 INR VBG pH 7.432 H VBG pCO2 46 VBG pO2 23.9 L VBG HCO3 31 H Sodium 137 Potassium 3.5 L Chloride 101 Carbon Dioxide 28 BUN 18 Creatinine 0.8 Estimated Creat Clear 68.80 Estimated GFR 91 Glucose 154 H Lactate 1.1 Calcium 8.7 Ionized Calcium Jerry 1.13 Magnesium 1.9 Total Bilirubin 1.0 AST 28 ALT 8 Alkaline Phosphatase 86 Troponin I 0.04 C-Reactive Protein 23.6 H NT-Pro-B Natriuret Pep 6720 H Total Protein 6.1 Albumin 3.0 L Procalcitonin 1.66 H 02/25/22 11:19 WBC RBC Hgb Hct MCV MCH MCHC RDW Coeff of Florence Plt Count Neut % (Auto) Lymph % (Auto) Rosebud % (Auto) Eos % (Auto) Baso % (Auto) Neut # (Auto) Lymph # (Auto) Rosebud # (Auto) Eos # (Auto) Baso # (Auto) Abs Immat Gran (auto) INR 1.24 H VBG pH VBG pCO2 VBG pO2 VBG HCO3 Sodium Potassium Chloride Carbon Dioxide BUN Creatinine Estimated Creat Clear Estimated GFR Glucose Lactate Calcium Ionized Calcium Jerry Magnesium Total Bilirubin AST ALT Alkaline Phosphatase Troponin I C-Reactive Protein NT-Pro-B Natriuret Pep Total Protein Albumin Procalcitonin
[2022-02-25] MEDS: AZITHROMYCIN 250 MG TABLET 500 MG PO (13:41)
--- NOTE | 2022-02-25 14:23 | PC.NURSE ---
Patient changed to CCU status/End of Shift: Patient pleasant and cooperative. Patient vitally stable, posterior lungs with crackles, BS WNL, IV running NS bolus left AC. Patient 1 assist, walker, gb, and denied pain. Patient mid day vitals were soft and patient had respirations at 30. MD notified EKG, tele, and bolus ordered. EKG showed flutter with RVR. Patient changed to CCU status and rooms changed. Patient tolerating regular diet eating 100% of breakfast, did not order lunch. Patient urinated 250cc.
[2022-02-25] MEDS: dilTIAZem 5 MG/ML inj 10 MG IVP (14:26)
[2022-02-25] MEDS: cefTRIAXone 1 GM in 0.9 % SODIUM CHLORIDE Mini-bag 100 ML IVPB (14:30)
--- NOTE | 2022-02-25 14:43 | OT.MOCA ---
Addendum entered and electronically signed by JOB Busch/Erin 03/01/22 06:42: Supervision Statement: Supervising therapist was present, guiding, directing and collaborating with student to provide skilled judgment throughout patient's session. Original Note: Pt completed the blind Schuyler (7.1) due to low near sighted vision and inability to see small print, glasses were brought to the hospital 02/25/22. Pt scored 18/22, representing within normal cognition. Pt had difficulty in attention, language fluencey and delayed recall sections of the Schuyler. Further cognitive assessments are warranted for safe discharge planning, full Schuyler (8.1) to assess executive functioning, Home safety questionnaire and trail/maze to assess safety for driving.
[2022-02-25 15:18] LABS: ABG PCO2 34 mmHG (35-45); Base Excess ABG 3.6 mmol/L (-3.0-3.0); HCO3 ABG 27 mmol/L (21-28); Oxygen Saturation ABG 93 % (92-100); PO2 ABG 59.1 mmHG (80-105); TCO2 ABG 24 mmol/l (21-30)
[2022-02-25] MEDS: PIPERACILLIN/TAZOBACTAM 3.375 GM in 0.9 % SODIUM CHLORIDE Mini-bag 100 ML IVPB ×2 (15:23→20:42)
--- NOTE | 2022-02-25 16:01 | PC.NURSE ---
pt was admitted to unit @ 1415. VS taken 10 mg IV Dilt was given HR was A-Flutter 110-120 before and after the IV push. respiration rate 30+ Sao2 on RA 90-94%. IV patent Fluids @ 500 mls. IV antibiotic was started. md was updated, no IV drip at this time.
[2022-02-25] MEDS: 0.9 % SODIUM CHLORIDE 1000 ml 1,000 ML 75 ML IV (16:45)
[2022-02-25] MEDS: 0.9 % SODIUM CHLORIDE 250 ml 250 ML IV (16:45)
[2022-02-25] MEDS: dilTIAZem 30 MG TABLET PO (19:33)
[2022-02-25] MEDS: ENOXAPARIN 40 MG/0.4 ML INJ SUBCUT (20:41)
[2022-02-25] MEDS: DOCUSATE SODIUM 100 MG CAPSULE PO (20:42)
[2022-02-25] MEDS: METOPROLOL TARTRATE 25 MG TABLET PO (20:42)
[2022-02-25] MEDS: polyethylene glycoL 3350 17 GM PACK PO (21:31)
--- NOTE | 2022-02-25 21:46 | PC.NURSE ---
End of Shift: Patient pleasant and cooperative. O2 sats greater than 90% on room air. Denies pain. Up to bathroom and chair with 1 assist, walker and gait belt. Tolerating regular diet with no nausea. Tele showing A-flutter. Heart rate mostly in the 90s-110s. Up to 115-130 with activity. Updated MD and new orders for oral Metoprolol and Diltiazem. Temp 100.4 and 99.4.
[2022-02-26] VITALS (8 sets, daily range): BP systolic 105–130; BP diastolic 65–87; PULSE 86–96; RESP 18–22; TEMP 36.5–37; O2SAT 93–95
[2022-02-26] MEDS: dilTIAZem 30 MG TABLET PO ×4 (00:45→19:29)
[2022-02-26] MEDS: PIPERACILLIN/TAZOBACTAM 3.375 GM in 0.9 % SODIUM CHLORIDE Mini-bag 100 ML IVPB ×4 (03:01→21:33)
--- NOTE | 2022-02-26 04:03 | PC.NURSE ---
Addendum entered by Nadia Cheney RN 02/26/22 06:42: Pt up to BR @ 0630, flipped back into A-fib, rate low 100, po Cardizem administered as scheduled. Original Note: Shift note : Pt alert, slow to respond to questions d/t Parkinson dx although answers appropriately. Asst of 1 w/ walker to BR, moves well. Pt has converted back to SR, rate 80-90. Lungs w/ crackles LLL and wheezes BUL, continues to decline nebs, able to produce small amts of yellow sputum, remains on RA. Rash was noted on back by the previous shift, MD aware, denies any feelings of itchiness. Afebrile.
[2022-02-26] MEDS: 0.9 % SODIUM CHLORIDE 1000 ml 1,000 ML 75 ML IV ×2 (06:32→21:32)
[2022-02-26 07:07] LABS: HCO3 VBG 30 mmol/L (21-28); PCO2 VBG 46 mmHG (40-50); pH VBG 7.423 (7.32-7.43)
[2022-02-26 07:12] LABS: PO2 VBG < 20.0 mmHG (25-47)
[2022-02-26 07:24] LABS: Hematocrit 36.6 % (37.0-53.0); Mean Corpuscular HGB Conc 33 gm/dL (32-36); Mean Corpuscular Hemoglobin 30 pg (26-34); Mean Corpuscular Volume 91 fL (80-100); Platelet Count* 357 K/uL (140-440); Red Blood Count 4.03 m/uL (4.30-5.90); White Blood Count* 10.09 K/uL (4.50-11.00)
[2022-02-26 07:30] LABS: Slide Review Reflex No
[2022-02-26 07:34] LABS: INR 1.25 (0.91-1.10); Prothrombin Time 16.1 Seconds
[2022-02-26 07:36] LABS: Albumin* 2.8 g/dL (3.3-5.0); Chloride* 102 mmol/L (96-114)
[2022-02-26 07:37] LABS: Potassium* 3.8 mmol/L (3.6-5.1); Sodium* 138 mmol/L (135-149)
[2022-02-26 07:39] LABS: Alkaline Phosphatase* 79 U/L (40-150); Aspartate Amino Transferase* 32 U/L (12-35); Bilirubin Total* 0.7 mg/dL (0.1-1.5); Carbon Dioxide* 28 mmol/L (20-32); Creatinine* 0.9 mg/dL (0.5-1.5); Estimated Glomerular Filt Rate 87 ml/min; Total Protein* 5.8 g/dL (6.0-8.3)
[2022-02-26 07:40] LABS: Alanine Aminotransferase* 23 U/L (4-50); Blood Urea Nitrogen* 16 mg/dL (7-30); Calcium* 8.6 mg/dL (8.4-10.6); Glucose* 129 mg/dL (60-115); Magnesium* 1.8 mg/dL (1.5-2.6)
--- NOTE | 2022-02-26 07:41 | CRLHL7_ITS ---
For Patients: As a result of the Century Cures Act, medical imaging exams and procedure reports are released immediately into your electronic medical record. You may view this report before your referring provider. If you have questions, please contact your health care provider. INDICATION: F/U LEFT PLEURAL EFFUSION TECHNIQUE: Chest 2 views COMPARISON: CT 02/25/2022 FINDINGS: Left pleural effusion appears similar. Similar parenchymal opacities within the inferior lingula and left lower lobe. Some of the pleural fluid tracks along the major fissure. Fluid loculation are also present. Right lung is clear. No pneumothorax. Mediastinal contours are similar. IMPRESSION: Similar multiloculated left pleural effusion with left lower lobe infiltrate. Dictated by Francisco Castaneda MD @ 02/26/2022 10:28:45 AM (Electronically Signed)
[2022-02-26 07:45] LABS: NT Pro B Type NatriureticPept* 5000 PG/mL (0-450)
[2022-02-26 07:48] LABS: Troponin I* 0.04 ng/mL (0.01-0.04)
[2022-02-26 07:52] LABS: Procalcitonin* 1.14 ng/mL (<0.50)
[2022-02-26 07:54] LABS: C Reactive Protein* 19.9 mg/dL (0.5-1.0)
[2022-02-26] MEDS: CARBIDOPA-LEVODOPA 25-100 TABLET 1 TAB PO ×3 (08:16→21:32)
[2022-02-26] MEDS: polyethylene glycoL 3350 17 GM PACK PO (09:21)
[2022-02-26] MEDS: METOPROLOL TARTRATE 25 MG TABLET PO ×2 (09:21→13:05)
--- NOTE | 2022-02-26 11:34 | PC.SOCIAL ---
Received a phone call from pt's daughter, Hallie. Hallie was requesting a nursing update. Provided the phone number to med/surg floor so she could obtain a medical update. Discussed the plan moving forward. Informed that pt has to stabilize to develop a safe discharge plan. Daughter is ok with pt going to SNF for rehab or increasing services at [facility] if needed. Daughter discussed that pt is the primary caregiver for his and has had to have an increase in services at [facility] since pt is hospitalized. Daughter discussed that family may move to memory care unit at [facility] to relieve pt of caregiver responsibilities so pt can focus on pt's health. Informed daughter that social work will discuss a safe discharge plan with her when pt is medically ready for discharge. Provided daughter with the phone number to the social work office.
--- NOTE | 2022-02-26 11:47 | PM.GSCN ---
History of Present Illness Consult details Date Seen: 02/26/22 Consult date: 02/26/22 Narrative: Patient is a 76-year-old male, who was admitted to the hospital on 02/22/2022 for shortness of breath and fevers. Workup was obtained with evidence of pneumonia. Since being in the hospital he states that his breathing has improved, although he minutes he still short of breath at times. He still has a persistent cough and feels overall fatigued. He reports a fever yesterday evening, non this morning. He states that he has been hospitalized for pneumonia in the past, approximately 5 years ago, when he was undergoing treatment for his head and neck cancer. 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 Grown daughters. Previously heavy smoker. Lives [address] at [facility]. Smoking Status: Former smoker How often do you have a drink containing alcohol: 2-3 times a week AUDIT-C Alcohol total score: 3 Meds Home Medications and Allergies Home Medications Medication Instructions Recorded Confirmed Type amlodipine 5 mg tablet 5 mg PO DAILY 02/22/22 02/23/22 History atenolol 50 mg tablet 50 mg PO DAILY 02/22/22 02/23/22 History carbidopa 25 mg-levodopa 100 mg 1 tab PO TID 02/22/22 02/23/22 History tablet lisinopril 20 mg tablet 20 mg PO DAILY 02/22/22 02/23/22 History Allergies Allergy/AdvReac Type Severity Reaction Status Date / Time No Known Drug Allergies Allergy Verified 02/22/22 17:41 Exam Narrative: Exam Narrative: General: Alert and oriented, nontoxic in appearance in no acute distress Respiratory: Some tachypnea with talking, oxygenating greater than 90% on room air. Left lower lung bases with atelectasis and crackles noted. CV: Irregularly irregular rhythm Const: Vital Signs, click to edit/add: Vital Signs - 24 hr 02/25/22 12:28 02/25/22 12:30 02/25/22 14:17 Temperature 98.2 F 99.2 F Pulse Rate Pulse Rate [Left R adial] 58 L Pulse Rate [Pulse Oximeter] 149 H 141 H 59 L Respiratory Rate 30 H 30 H Blood Pressure [Ri ght Arm] 96/74 105/79 140/71 H Pulse Oximetry 93 93 Oxygen Delivery Me thod Room Air Room Air Fraction of Inspir ed Oxygen 02/25/22 14:40 02/25/22 14:50 02/25/22 15:02 Temperature Pulse Rate Pulse Rate [Left R adial] 108 H 108 H 101 H Pulse Rate [Pulse Oximeter] 108 H 108 H 101 H Respiratory Rate 32 H 30 H 30 H Blood Pressure [Ri ght Arm] 132/79 122/72 123/69 Pulse Oximetry 91 92 92 Oxygen Delivery Me thod Room Air Room Air Room Air Fraction of Inspir ed Oxygen 02/25/22 15:00 02/25/22 15:29 02/25/22 15:28 Temperature 100.4 F H Pulse Rate Pulse Rate [Left R adial] Pulse Rate [Pulse Oximeter] 106 H Respiratory Rate 30 H Blood Pressure [Ri ght Arm] 118/69 Pulse Oximetry 94 93 Oxygen Delivery Me thod Room Air Room Air Room Air Fraction of Inspir ed Oxygen 0.21 02/25/22 15:00 02/25/22 15:00 02/25/22 19:00 Temperature 99.4 F Pulse Rate 104 H Pulse Rate [Left R adial] 110 H Pulse Rate [Pulse Oximeter] Respiratory Rate 30 H 28 H Blood Pressure [Ri ght Arm] 116/88 Pulse Oximetry 93 Oxygen Delivery Me thod Room Air Fraction of Inspir ed Oxygen 02/26/22 00:30 02/26/22 00:30 02/26/22 00:30 Temperature 98.3 F Pulse Rate 94 Pulse Rate [Left R adial] Pulse Rate [Pulse Oximeter] 94 Respiratory Rate 20 Blood Pressure [Ri ght Arm] 120/73 Pulse Oximetry 94 94 Oxygen Delivery Me thod Room Air Room Air Fraction of Inspir ed Oxygen 02/26/22 03:00 02/26/22 07:00 02/26/22 07:00 Temperature 98.6 F Pulse Rate 95 Pulse Rate [Left R adial] 94 Pulse Rate [Pulse Oximeter] 86 Respiratory Rate 20 Blood Pressure [Ri ght Arm] 122/72 Pulse Oximetry 93 Oxygen Delivery Me thod Room Air Fraction of Inspir ed Oxygen 02/26/22 07:00 02/26/22 07:00 Temperature 98 F Pulse Rate Pulse Rate [Left R adial] 94 Pulse Rate [Pulse Oximeter] 95 Respiratory Rate 22 Blood Pressure [Ri ght Arm] 113/65 Pulse Oximetry 95 95 Oxygen Delivery Me thod Room Air Room Air Fraction of Inspir ed Oxygen Results Labs Labs: Abnormal lab results 02/25/22 02/25/22 02/25/22 Range/Units 10:40 11:19 15:15 RBC (4.30-5.90) m/uL Hgb (13.5-17.5) gm/dL Hct (37.0-53.0) % INR 1.24 H (0.91-1.10) ABG pH 7.50 H (7.35-7.45) ABG pCO2 34 L (35-45) mmHG ABG pO2 59.1 L (80-105) mmHG ABG Base Excess 3.6 H (-3.0-3.0) mmol/L VBG pO2 (25-47) mmHG VBG HCO3 (21-28) mmol/L Glucose (60-115) mg/dL C-Reactive Protein (0.5-1.0) mg/dL NT-Pro-B Natriuret Pep 6720 H (0-450) PG/mL Total Protein (6.0-8.3) g/dL Albumin (3.3-5.0) g/dL Procalcitonin 1.66 H (<0.50) ng/mL 02/26/22 02/26/22 02/26/22 Range/Units 06:48 06:48 06:48 RBC 4.03 L (4.30-5.90) m/uL Hgb 12.0 L (13.5-17.5) gm/dL Hct 36.6 L (37.0-53.0) % INR 1.25 H (0.91-1.10) ABG pH (7.35-7.45) ABG pCO2 (35-45) mmHG ABG pO2 (80-105) mmHG ABG Base Excess (-3.0-3.0) mmol/L VBG pO2 (25-47) mmHG VBG HCO3 (21-28) mmol/L Glucose 129 H (60-115) mg/dL C-Reactive Protein 19.9 H (0.5-1.0) mg/dL NT-Pro-B Natriuret Pep 5000 H (0-450) PG/mL Total Protein 5.8 L (6.0-8.3) g/dL Albumin 2.8 L (3.3-5.0) g/dL Procalcitonin 1.14 H (<0.50) ng/mL 02/26/22 Range/Units 06:48 RBC (4.30-5.90) m/uL Hgb (13.5-17.5) gm/dL Hct (37.0-53.0) % INR (0.91-1.10) ABG pH (7.35-7.45) ABG pCO2 (35-45) mmHG ABG pO2 (80-105) mmHG ABG Base Excess (-3.0-3.0) mmol/L VBG pO2 < 20.0 L (25-47) mmHG VBG HCO3 30 H (21-28) mmol/L Glucose (60-115) mg/dL C-Reactive Protein (0.5-1.0) mg/dL NT-Pro-B Natriuret Pep (0-450) PG/mL Total Protein (6.0-8.3) g/dL Albumin (3.3-5.0) g/dL Procalcitonin (<0.50) ng/mL Diabetes panel 02/26/22 Range/Units 06:48 Sodium 138 (135-149) mmol/L Potassium 3.8 (3.6-5.1) mmol/L Chloride 102 (96-114) mmol/L Carbon Dioxide 28 (20-32) mmol/L BUN 16 (7-30) mg/dL Creatinine 0.9 (0.5-1.5) mg/dL Glucose 129 H (60-115) mg/dL Calcium 8.6 (8.4-10.6) mg/dL AST 32 (12-35) U/L ALT 23 (4-50) U/L Alkaline Phosphatase 79 (40-150) U/L Total Protein 5.8 L (6.0-8.3) g/dL Albumin 2.8 L (3.3-5.0) g/dL Calcium panel 02/26/22 Range/Units 06:48 Calcium 8.6 (8.4-10.6) mg/dL Albumin 2.8 L (3.3-5.0) g/dL Pituitary panel 02/26/22 Range/Units 06:48 Sodium 138 (135-149) mmol/L Potassium 3.8 (3.6-5.1) mmol/L Chloride 102 (96-114) mmol/L Carbon Dioxide 28 (20-32) mmol/L BUN 16 (7-30) mg/dL Creatinine 0.9 (0.5-1.5) mg/dL Glucose 129 H (60-115) mg/dL Calcium 8.6 (8.4-10.6) mg/dL Adrenal panel 02/26/22 Range/Units 06:48 Sodium 138 (135-149) mmol/L Potassium 3.8 (3.6-5.1) mmol/L Chloride 102 (96-114) mmol/L Carbon Dioxide 28 (20-32) mmol/L BUN 16 (7-30) mg/dL Creatinine 0.9 (0.5-1.5) mg/dL Glucose 129 H (60-115) mg/dL Calcium 8.6 (8.4-10.6) mg/dL Total Bilirubin 0.7 (0.1-1.5) mg/dL AST 32 (12-35) U/L ALT 23 (4-50) U/L Alkaline Phosphatase 79 (40-150) U/L Total Protein 5.8 L (6.0-8.3) g/dL Albumin 2.8 L (3.3-5.0) g/dL All other labs normal. Imaging Chest x-ray: report reviewed and image reviewed CT scan - chest: report reviewed and image reviewed Assessment and Plan Assessment and plan (1) Pleural effusion: Status: Acute Plan Patient is a 76-year-old male, with a 40 pack smoking history, who is admitted for community-acquired pneumonia. A CT of the chest was obtained on 02/25/2022. This demonstrates a small, somewhat loculated left pleural effusion. This was reviewed with the radiologist, who agrees that characteristics of the fluid are most consistent with a parapneumonic effusion. There is some mild enhancement and thickening of the pleura seen, which can be seen with empyema, but Hounsfield units are low and characteristics of the fluid simple in appearance. Clinically the patient is reporting improvement in his breathing. His inflammatory markers are trending down and he has no evidence of leukocytosis on today's labs. He did have a low-grade fever overnight (100.4), but overall his fever curve has improved. Chest x-ray was obtained this morning and is stable. After extensively reviewing the images, examining the patient and noting the clinical improvement that have been seen over the last few days suspect that this fluid is uncomplicated and recommend continued management with antibiotics alone. I did discuss this with the hospitalist, who will plan for repeat chest x-ray on Tuesday. If there is evidence of patient clinically worsening or fluid is becoming larger would re-evaluate for possible thoracentesis. Appreciate the consultation. Please call with any clinical questions, concerns or acute changes.
--- NOTE | 2022-02-26 11:55 | PM.IMPN1 ---
Progress Note: A&P Assessment and plan (1) Pleural effusion: Problem details: Possible loculated empyema vs effusion - pleura not enhancing on CT Status: Acute Assessment and Plan: Not hypoxic. Mildly febrile. Procal and CRP are improving. I also reviewed yesterday's Chest CT and today's CXR with Dr. Castaneda from Radiology. Consult gen surgery, Dr. Beltran. Appreciate her recommendations. PLAN: recheck CXR Tuesday. Family aware to set up phone call care conference Tuesday to discuss results and further plan of care. (2) Community acquired pneumonia: Problem details: No evidence of acute respiratory failure or metabolic or respiratory acid-base failure Inflammatory markers like white blood cell count, CRP, prolactin are quite high, now improving - trend and follow With background significant smoking history and obstructive pneumonia secondary to mass is considered - None seen on CT chest 02/25/22. Status: Acute Assessment and Plan: Continue zosyn (changed to this from ceftriaxone yesterday for possible empyema) and azithromycin. (3) Atrial flutter with rapid ventricular response: Problem details: -in the setting of hypovolemia vs sepsis; LBBB. Status: Acute Assessment and Plan: On low dose oral diltiazem and metoprolol. BP wnl. Increase metoprolol for improved rate control with ambulation. Holding lisinopril to allow higher BP. (4) Parkinsons: Problem details: Moderate. Mild rigidity and masked expression. Status: Acute Assessment and Plan: Continue Sinemet. (5) History of breast cancer in male: Status: Chronic (6) History of DVT (deep vein thrombosis): Status: Chronic (7) Smoking greater than 40 pack years: Problem details: Noted Status: Chronic (8) Hypertension: Status: Chronic (9) Hyperlipidemia: Status: Chronic (10) Abnormal CT scan of lung: Problem details: Questionable filling defect/PE in LLL Status: Acute Assessment and Plan: Has h/o DVT. Check bilateral LE US for DVT. Currently on low-dose nightly Lovenox for VTE prophylaxis. Subjective Time Seen by Provider: 11:30 Date Seen: 02/26/22 Interval history: Kevin is feeling better today. SOB improving. He had 2 BMs today and notes his bowels are working well. His daughter was in the room with him and we discussed empyema, pulmonary embolism, pneumonia, debility, disposition. Exam Narrative: Exam Narrative: General: No acute distress. Awake, alert, oriented. Parkinsonian masked faces. No pallor. No jaundice. Cardiovascular: Irregularly irregular. No murmur. Respiratory: Diminished breath sounds and some crackles in the left lower lung field. Right lung is clear to auscultation. Abdomen: Bowel sounds present. Soft, nondistended, nontender. Extremities: No pedal edema. No calf tenderness. Const: Vital Signs, click to edit/add: Vital Signs - 24 hr 02/25/22 12:28 02/25/22 12:30 02/25/22 14:17 Temperature 98.2 F 99.2 F Pulse Rate Pulse Rate [Left R adial] 58 L Pulse Rate [Pulse Oximeter] 149 H 141 H 59 L Respiratory Rate 30 H 30 H Blood Pressure [Ri ght Arm] 96/74 105/79 140/71 H Pulse Oximetry 93 93 Oxygen Delivery Me thod Room Air [facility] 02/25/22 14:40 02/25/22 14:50 02/25/22 15:02 Temperature Pulse Rate Pulse Rate [Left R adial] 108 H 108 H 101 H Pulse Rate [Pulse Oximeter] 108 H 108 H 101 H Respiratory Rate 32 H 30 H 30 H Blood Pressure [Ri ght Arm] 132/79 122/72 123/69 Pulse Oximetry 91 92 92 Oxygen Delivery Me thod Room Air Room Air Room Air Fraction of Inspir ed Oxygen 02/25/22 15:00 02/25/22 15:29 02/25/22 15:28 Temperature 100.4 F H Pulse Rate Pulse Rate [Left R adial] Pulse Rate [Pulse Oximeter] 106 H Respiratory Rate 30 H Blood Pressure [Ri ght Arm] 118/69 Pulse Oximetry 94 93 Oxygen Delivery Me thod Room Air Room Air Room Air Fraction of Inspir ed Oxygen 0.21 02/25/22 15:00 02/25/22 15:00 02/25/22 19:00 Temperature 99.4 F Pulse Rate 104 H Pulse Rate [Left R adial] 110 H Pulse Rate [Pulse Oximeter] Respiratory Rate 30 H 28 H Blood Pressure [Ri ght Arm] 116/88 Pulse Oximetry 93 Oxygen Delivery Me thod Room Air Fraction of Inspir ed Oxygen 02/26/22 00:30 02/26/22 00:30 02/26/22 00:30 Temperature 98.3 F Pulse Rate 94 Pulse Rate [Left R adial] Pulse Rate [Pulse Oximeter] 94 Respiratory Rate 20 Blood Pressure [Ri ght Arm] 120/73 Pulse Oximetry 94 94 Oxygen Delivery Me thod Room Air Room Air Fraction of Inspir ed Oxygen 02/26/22 03:00 02/26/22 07:00 02/26/22 07:00 Temperature 98.6 F Pulse Rate 95 Pulse Rate [Left R adial] 94 Pulse Rate [Pulse Oximeter] 86 Respiratory Rate 20 Blood Pressure [Ri ght Arm] 122/72 Pulse Oximetry 93 Oxygen Delivery Me thod Room Air Fraction of Inspir ed Oxygen 02/26/22 07:00 02/26/22 07:00 Temperature 98 F Pulse Rate Pulse Rate [Left R adial] 94 Pulse Rate [Pulse Oximeter] 95 Respiratory Rate 22 Blood Pressure [Ri ght Arm] 113/65 Pulse Oximetry 95 95 Oxygen Delivery Me thod Room Air Room Air Fraction of Inspir ed Oxygen Documenting provider has reviewed patient's vital signs: yes Labs Labs: Laboratory Results - last 24 hr 02/25/22 02/25/22 02/26/22 10:40 15:15 06:48 WBC 10.09 RBC 4.03 L Hgb 12.0 L Hct 36.6 L MCV 91 MCH 30 MCHC 33 Plt Count 357 INR ABG pH 7.50 H ABG pCO2 34 L ABG pO2 59.1 L ABG HCO3 27 ABG Total CO2 24 ABG O2 Saturation 93 ABG Base Excess 3.6 H VBG pH VBG pCO2 VBG pO2 VBG HCO3 Sodium Potassium Chloride Carbon Dioxide BUN Creatinine Estimated Creat Clear Estimated GFR Glucose Calcium Magnesium Total Bilirubin AST ALT Alkaline Phosphatase Troponin I C-Reactive Protein NT-Pro-B Natriuret Pep 6720 H Total Protein Albumin Procalcitonin 1.66 H 02/26/22 02/26/22 02/26/22 06:48 06:48 06:48 WBC RBC Hgb Hct MCV MCH MCHC Plt Count INR 1.25 H ABG pH ABG pCO2 ABG pO2 ABG HCO3 ABG Total CO2 ABG O2 Saturation ABG Base Excess VBG pH 7.423 VBG pCO2 46 VBG pO2 < 20.0 L VBG HCO3 30 H Sodium 138 Potassium 3.8 Chloride 102 Carbon Dioxide 28 BUN 16 Creatinine 0.9 Estimated Creat Clear 68.80 Estimated GFR 87 Glucose 129 H Calcium 8.6 Magnesium 1.8 Total Bilirubin 0.7 AST 32 ALT 23 Alkaline Phosphatase 79 Troponin I 0.04 C-Reactive Protein 19.9 H NT-Pro-B Natriuret Pep 5000 H Total Protein 5.8 L Albumin 2.8 L Procalcitonin 1.14 H Imaging Chest x-ray: Attestation: I have reviewed the pertinent imaging results. Radiologist's impression: Ordering Physician: Aura Vargas M.D. Date of Service: 02/26/22 Procedure(s): XR chest 2V Accession Number(s): [id number] cc: Aura Vargas M.D.; Francisco Navarro M.D.~ For Patients: As a result of the Cures Act, medical imaging exams and procedure reports are released immediately into your electronic medical record. You may view this report before your referring provider. If you have questions, please contact your health care provider. INDICATION: F/U LEFT PLEURAL EFFUSION TECHNIQUE: Chest 2 views COMPARISON: CT 02/25/2022 FINDINGS: Left pleural effusion appears similar. Similar parenchymal opacities within the inferior lingula and left lower lobe. Some of the pleural fluid tracks along the major fissure. Fluid loculation are also present. Right lung is clear. No pneumothorax. Mediastinal contours are similar. IMPRESSION: Similar multiloculated left pleural effusion with left lower lobe infiltrate. Dictated by Francisco Castaneda MD @ 02/26/2022 10:28:45 AM (Electronically Signed)
--- NOTE | 2022-02-26 12:17 | CRLHL7_ITS ---
For Patients: As a result of the Cures Act, medical imaging exams and procedure reports are released immediately into your electronic medical record. You may view this report before your referring provider. If you have questions, please contact your health care provider. INDICATION: Possible PE seen on chest CT. History of right lower extremity DVT. COMPARISON: None. TECHNIQUE: A compression venous ultrasound exam was performed of both lower extremities using wolf scale imaging, color Doppler and spectral Doppler analysis. FINDINGS: Right: Sonographic imaging of the right lower extremity demonstrates normal compressibility and color Doppler venous blood flow within the common femoral, deep femoral, and proximal greater saphenous veins. Within the thigh the femoral vein is patent and compressible. At a lower level the popliteal, peroneal, and posterior tibial veins also show normal compressibility and color Doppler venous blood flow. Left: Sonographic imaging of the left lower extremity demonstrates normal compressibility and color Doppler venous blood flow within the common femoral, deep femoral, and proximal greater saphenous veins. There is thrombus in the left mid femoral vein. At a lower level the popliteal, peroneal, and posterior tibial veins also show normal compressibility and color Doppler venous blood flow. IMPRESSION: 1. Positive for acute DVT in the left mid femoral vein. 2. Negative for acute DVT in the right lower extremity. 3. Findings discussed with Yosef Logan at 4:15 p.m. on 02/26/2022. Dictated by Deonna Erickson MD @ 02/26/2022 4:11:59 PM (Electronically Signed)
[2022-02-26] MEDS: AZITHROMYCIN 250 MG TABLET 500 MG PO (13:05)
[2022-02-26] MEDS: IPRAT-ALBUT 0.5-2.5 MG/3 ML NEB 1 NEB IH (15:51)
[2022-02-26] MEDS: ENOXAPARIN 80 MG/0.8 ML INJ SUBCUT (15:52)
--- NOTE | 2022-02-26 19:28 | PC.NURSE ---
shift note; vss stable. pt HR 6090's with tele showing SR to At fib to At flutter. pt denies c.p. Pt states he has lt side pain after coughing. pt has dry cough. LS with crkls to LLL and dim bibasilar. Pt afeb. Pt did become sob with insp/exp wheezing this afternoon after minimal activity. PRN neb given with resolution of wheezing. Pt on RA with sats 94-95%. bilat l/e with scd's in place and +PP. Pt up with 1/walker with shuffled gait. IV replaced to Lt FA.
[2022-02-26] MEDS: METOPROLOL TARTRATE 50 MG TABLET PO (21:31)
[2022-02-27] VITALS (10 sets, daily range): BP systolic 107–139; BP diastolic 64–76; PULSE 90–98; RESP 20–22; TEMP 36.6–37.3; O2SAT 91–96
[2022-02-27] MEDS: dilTIAZem 30 MG TABLET PO ×4 (00:59→18:40)
[2022-02-27] MEDS: PIPERACILLIN/TAZOBACTAM 3.375 GM in 0.9 % SODIUM CHLORIDE Mini-bag 100 ML IVPB ×4 (04:55→21:41)
[2022-02-27] MEDS: ENOXAPARIN 80 MG/0.8 ML INJ SUBCUT (05:09)
--- NOTE | 2022-02-27 06:36 | PC.NURSE ---
[id number]: patient up with assist X1 walker and gait belt. 3 loose stools overnight, patient afebrile, remained on RA overnight with sats remaining above 90. tele showing Afib-Aflutter with a rate 80s-110s.
[2022-02-27 07:01] LABS: HCO3 VBG 28 mmol/L (21-28); PCO2 VBG 38 mmHG (40-50); pH VBG 7.471 (7.32-7.43)
[2022-02-27 07:10] LABS: Hematocrit 33.6 % (37.0-53.0); Mean Corpuscular HGB Conc 33 gm/dL (32-36); Mean Corpuscular Hemoglobin 30 pg (26-34); Mean Corpuscular Volume 91 fL (80-100); Platelet Count* 381 K/uL (140-440); Red Blood Count 3.69 m/uL (4.30-5.90); White Blood Count* 10.31 K/uL (4.50-11.00)
[2022-02-27 07:11] LABS: Slide Review Reflex Yes
[2022-02-27 07:23] LABS: INR 1.26 (0.91-1.10); Prothrombin Time 16.2 Seconds
[2022-02-27 07:29] LABS: Albumin* 2.5 g/dL (3.3-5.0); Chloride* 105 mmol/L (96-114); Sodium* 137 mmol/L (135-149)
[2022-02-27 07:30] LABS: Potassium* 3.6 mmol/L (3.6-5.1)
[2022-02-27 07:32] LABS: Alkaline Phosphatase* 71 U/L (40-150); Aspartate Amino Transferase* 29 U/L (12-35); Bilirubin Total* 0.6 mg/dL (0.1-1.5); Carbon Dioxide* 27 mmol/L (20-32); Creatinine* 0.8 mg/dL (0.5-1.5); Estimated Glomerular Filt Rate 91 ml/min; Total Protein* 5.5 g/dL (6.0-8.3)
[2022-02-27 07:33] LABS: Alanine Aminotransferase* 15 U/L (4-50); Blood Urea Nitrogen* 11 mg/dL (7-30); Calcium* 8.1 mg/dL (8.4-10.6); Glucose* 118 mg/dL (60-115); Magnesium* 1.7 mg/dL (1.5-2.6)
[2022-02-27 08:12] LABS: C Reactive Protein* 15.2 mg/dL (0.5-1.0)
[2022-02-27 08:29] LABS: NT Pro B Type NatriureticPept* 3090 PG/mL (0-450)
[2022-02-27 08:33] LABS: Troponin I* 0.02 ng/mL (0.01-0.04)
[2022-02-27 08:37] LABS: Procalcitonin* 0.71 ng/mL (<0.50)
[2022-02-27 08:39] LABS: Slide Review Acceptable Review (Acceptable)
[2022-02-27] MEDS: METOPROLOL TARTRATE 50 MG TABLET PO (09:05)
[2022-02-27] MEDS: CARBIDOPA-LEVODOPA 25-100 TABLET 1 TAB PO ×3 (09:05→21:40)
[2022-02-27] MEDS: IPRAT-ALBUT 0.5-2.5 MG/3 ML NEB 1 NEB IH (09:42)
--- NOTE | 2022-02-27 11:13 | RESP.RT ---
Patient up in Chair at 08:15 this am, appears comfortable, on room air, respiratory rate 20/minute, breathing is easy/regular, no use of accessary muscles noted at this time. Patient is using Aerobika with good effort and chest shake. Patient stated SOB with transfer from bed to chair. Bilateral breath sounds present, Right lung clear/diminished, Left lung fine crackles, diminished. Chest X-ray with Left pleural effusion, and infiltrate. Patient has clear voice, capillary refill less than 3 seconds.
[2022-02-27 11:29] LABS: C.Difficile Negative (Negative); CDIFFEPI 027 PRESUMPTIVE NEGATIVE (Negative)
[2022-02-27] MEDS: 0.9 % SODIUM CHLORIDE 1000 ml 1,000 ML 75 ML IV (12:30)
--- NOTE | 2022-02-27 13:47 | PM.IMPN1 ---
Progress Note: A&P Assessment and plan (1) Pleural effusion: Problem details: Possible loculated empyema vs effusion - pleura not enhancing on CT Status: Acute Assessment and Plan: Still not hypoxic. No longer febrile. Procal and CRP are improving. Continue zosyn. Recheck CXR Tuesday, then discuss with surgery. Planning to update family tomorrow morning phone call with all daughters. (2) Community acquired pneumonia: Problem details: No evidence of acute respiratory failure or metabolic or respiratory acid-base failure Inflammatory markers like white blood cell count, CRP, prolactin are quite high, now improving - trend and follow With background significant smoking history and obstructive pneumonia secondary to mass is considered - None seen on CT chest 02/25/22. Status: Acute Assessment and Plan: Continue zosyn (changed to this from ceftriaxone yesterday for possible empyema) and azithromycin. (3) Atrial flutter with rapid ventricular response: Problem details: -in the setting of PE, hypovolemia vs sepsis; LBBB. Status: Acute Assessment and Plan: On oral diltiazem and metoprolol. Tolerated increased dose of metoprolol. HR still around 95bpm. Will increase metoprolol again starting tonight. Holding lisinopril to allow higher BP. (4) Pulmonary embolism: Problem details: Left lower lung Status: Acute Assessment and Plan: Was started on therapeutic enoxaparin yesterday afternoon. Will transition to IV heparin today in case he needs thoracentesis tomorrow. Will ultimately need to start oral anticoagulant. (5) DVT of leg (deep venous thrombosis): Problem details: left mid femoral vein Status: Acute Assessment and Plan: As above in PE. (6) History of DVT (deep vein thrombosis): Status: Chronic (7) History of breast cancer in male: Status: Chronic (8) Smoking greater than 40 pack years: Problem details: Noted Status: Chronic (9) Parkinsons: Problem details: Moderate. Mild rigidity and masked expression. Status: Acute Assessment and Plan: Continue Sinemet. (10) Hypertension: Status: Chronic (11) Hyperlipidemia: Status: Chronic (12) Diarrhea: Problem details: C.diff neg 02/27/22. Likely due to antibiotics. Status: Acute Assessment and Plan: Start lactobacillus. (13) Rash: Status: Acute Assessment and Plan: Does not appear to be consistent with a drug rash. I will order Benadryl cream. Monitor. Subjective Time Seen by Provider: 09:41 Date Seen: 02/27/22 Interval history: Kevin has no complaints. His nurse noted that he has of rash on his back. Then Kevin told me that the rash was itchy yesterday, but feels a bit better today. Exam Narrative: Exam Narrative: General: No acute distress. Awake, alert, oriented. Parkinsonian masked faces. No pallor. No jaundice. Cardiovascular: Irregularly irregular. No murmur. Respiratory: Diminished breath sounds and some crackles in the left lower lung field. Right lung is clear to auscultation. Abdomen: Bowel sounds present. Soft, nondistended, nontender. Skin: Blanching confluent macular rash on back. I do not see this rash anywhere else on his body. Extremities: No pedal edema. No calf tenderness. Const: Vital Signs, click to edit/add: Vital Signs - 24 hr 02/26/22 15:56 02/26/22 15:00 02/26/22 15:00 Temperature 98 F Pulse Rate Pulse Rate [Left R adial] 95 Pulse Rate [Pulse Oximeter] 96 95 Respiratory Rate 22 22 22 Blood Pressure [Ri ght Arm] 128/80 Pulse Oximetry 95 95 Oxygen Delivery Me thod Room Air Room Air 02/26/22 15:00 02/26/22 19:00 02/26/22 23:00 Temperature 98.6 F Pulse Rate 89 89 Pulse Rate [Left R adial] 95 Pulse Rate [Pulse Oximeter] 95 Respiratory Rate 20 Blood Pressure [Ri ght Arm] 121/73 Pulse Oximetry 95 Oxygen Delivery Me thod Room Air 02/26/22 23:00 02/26/22 23:00 02/26/22 23:00 Temperature 98.1 F Pulse Rate Pulse Rate [Left R adial] 95 Pulse Rate [Pulse Oximeter] 95 95 Respiratory Rate 20 20 Blood Pressure [Ri ght Arm] 130/87 Pulse Oximetry 93 93 Oxygen Delivery Me thod Room Air Room Air 02/27/22 04:59 02/27/22 07:30 02/27/22 07:30 Temperature 98.9 F Pulse Rate 95 Pulse Rate [Left R adial] 98 Pulse Rate [Pulse Oximeter] 92 95 Respiratory Rate 22 Blood Pressure [Ri ght Arm] 130/74 Pulse Oximetry 92 Oxygen Delivery Me thod Room Air 02/27/22 07:30 02/27/22 08:00 02/27/22 08:15 Temperature 98.1 F Pulse Rate Pulse Rate [Left R adial] 95 Pulse Rate [Pulse Oximeter] 91 Respiratory Rate 20 20 20 Blood Pressure [Ri ght Arm] 132/74 Pulse Oximetry 91 91 95 Oxygen Delivery Me thod Room Air Room Air Room Air Documenting provider has reviewed patient's vital signs: yes Labs Labs: Laboratory Results - last 24 hr 02/27/22 02/27/22 02/27/22 06:20 06:20 06:20 WBC 10.31 RBC 3.69 L Hgb 11.0 L Hct 33.6 L MCV 91 MCH 30 MCHC 33 Plt Count 381 Diff Slide Review Acceptable Review INR 1.26 H VBG pH VBG pCO2 VBG pO2 VBG HCO3 Sodium 137 Potassium 3.6 Chloride 105 Carbon Dioxide 27 BUN 11 Creatinine 0.8 Estimated Creat Clear 68.80 Estimated GFR 91 Glucose 118 H Calcium 8.1 L Magnesium 1.7 Total Bilirubin 0.6 AST 29 ALT 15 Alkaline Phosphatase 71 Troponin I 0.02 C-Reactive Protein 15.2 H NT-Pro-B Natriuret Pep 3090 H Total Protein 5.5 L Albumin 2.5 L Procalcitonin 0.71 H Stl C.difficile Tox PCR St C. diff Tox Epid 027 02/27/22 02/27/22 06:20 10:15 WBC RBC Hgb Hct MCV MCH MCHC Plt Count Diff Slide Review INR VBG pH 7.471 H VBG pCO2 38 L VBG pO2 40.0 VBG HCO3 28 Sodium Potassium Chloride Carbon Dioxide BUN Creatinine Estimated Creat Clear Estimated GFR Glucose Calcium Magnesium Total Bilirubin AST ALT Alkaline Phosphatase Troponin I C-Reactive Protein NT-Pro-B Natriuret Pep Total Protein Albumin Procalcitonin Stl C.difficile Tox PCR Negative St C. diff Tox Epid 027 PRESUMPTIVE NEGATIVE Ordering Physician: Antoinette Del Valle MD Date of Service: 02/26/22 Procedure(s): US venous LE BI Accession Number(s): [id number] cc: Antoinette Del Valle MD; Francisco Navarro M.D.~ For Patients: As a result of the Cures Act, medical imaging exams and procedure reports are released immediately into your electronic medical record. You may view this report before your referring provider. If you have questions, please contact your health care provider. INDICATION: Possible PE seen on chest CT. History of right lower extremity DVT. COMPARISON: None. TECHNIQUE: A compression venous ultrasound exam was performed of both lower extremities using wolf scale imaging, color Doppler and spectral Doppler analysis. FINDINGS: Right: Sonographic imaging of the right lower extremity demonstrates normal compressibility and color Doppler venous blood flow within the common femoral, deep femoral, and proximal greater saphenous veins. Within the thigh the femoral vein is patent and compressible. At a lower level the popliteal, peroneal, and posterior tibial veins also show normal compressibility and color Doppler venous blood flow. Left: Sonographic imaging of the left lower extremity demonstrates normal compressibility and color Doppler venous blood flow within the common femoral, deep femoral, and proximal greater saphenous veins. There is thrombus in the left mid femoral vein. At a lower level the popliteal, peroneal, and posterior tibial veins also show normal compressibility and color Doppler venous blood flow. IMPRESSION: 1. Positive for acute DVT in the left mid femoral vein. 2. Negative for acute DVT in the right lower extremity. 3. Findings discussed with Yosef Logan at 4:15 p.m. on 02/26/2022. Dictated by Deonna Erickson MD @ 02/26/2022 4:11:59 PM (Electronically Signed)
[2022-02-27] MEDS: AZITHROMYCIN 250 MG TABLET 500 MG PO (13:48)
[2022-02-27 14:35] LABS: INR 1.25 (0.91-1.10); Partial Thromboplastin Time* 47 Seconds (23-33); Prothrombin Time 16.1 Seconds
[2022-02-27] MEDS: HEPARIN 25,000 UNIT/500 ML BAG 29 UNIT IV (18:29)
[2022-02-27] MEDS: LACTOBACILLUS ACIDOPHILUS 1 TABLET 2 TAB PO (18:41)
--- NOTE | 2022-02-27 20:00 | PC.NURSE ---
shift note: vss stable. pt afeb. pt has crkls to Lt upper and lower lobes. pt received prn neb for audible exp wheezing this a.m. Pt states he's producing phlegm. Pt sats 94%. pt state s5/10 lt chest wall pain with cough. pt up to chair & bathroom 1/walker. bilat knees with scabs. pt has red, itching rash covering back. Iv patent.
[2022-02-27] MEDS: METOPROLOL TARTRATE 50 MG TABLET 75 MG PO (21:40)
--- NOTE | 2022-02-27 22:15 | PM.EN ---
Chart Event Note Time Seen by Provider: 22:10 Date Seen: 02/27/22 Chart Event Note: Rash on back more red and warm tonight, and he c/o of some itching. Ordered triamcinolone 0.1% cream. Consider stop Pip/Tazo and switch to another class of antibiotics.
[2022-02-28] VITALS (9 sets, daily range): BP systolic 129–150; BP diastolic 62–85; PULSE 90–95; RESP 18–24; TEMP 36.5–37; O2SAT 92–95
[2022-02-28 00:38] LABS: Partial Thromboplastin Time* 74 Seconds (23-33)
[2022-02-28] MEDS: dilTIAZem 30 MG TABLET PO ×4 (00:41→18:25)
[2022-02-28] MEDS: PIPERACILLIN/TAZOBACTAM 3.375 GM in 0.9 % SODIUM CHLORIDE Mini-bag 100 ML IVPB ×4 (02:33→20:38)
--- NOTE | 2022-02-28 05:41 | PC.NURSE ---
[id number]: patient ambulates assist X1 updated on itchiness on back see new orders. tele has shown Aflutter entire shift rate in the 90s.
--- NOTE | 2022-02-28 06:00 | CRLHL7_ITS ---
For Patients: As a result of the Century Cures Act, medical imaging exams and procedure reports are released immediately into your electronic medical record. You may view this report before your referring provider. If you have questions, please contact your health care provider. Indication: Pneumonia and left-side pleural effusion. Technique: Chest 1 view. Comparison: 02/26/2022. Findings/Impression: Cardiovascular and mediastinum: Heart size and vasculature are normal in caliber and appearance. Lungs and pleural space: Unchanged left lung opacity which could represent a locule pleural effusion with atelectasis and/or infiltrate right lung and pleural space remain clear. No pneumothorax. Bones and soft tissues: No acute findings. Dictated by Franklin Velazquez MD @ 02/28/2022 8:26:16 AM (Electronically Signed)
[2022-02-28 07:15] LABS: Hemoglobin* 10.8 gm/dL (13.5-17.5); Mean Corpuscular HGB Conc 33 gm/dL (32-36); Mean Corpuscular Hemoglobin 30 pg (26-34); Mean Corpuscular Volume 91 fL (80-100); Platelet Count* 399 K/uL (140-440); Red Blood Count 3.63 m/uL (4.30-5.90); White Blood Count* 10.34 K/uL (4.50-11.00)
[2022-02-28 07:16] LABS: HCO3 VBG 28 mmol/L (21-28); PCO2 VBG 39 mmHG (40-50); PO2 VBG 67.9 mmHG (25-47); pH VBG 7.461 (7.32-7.43)
[2022-02-28 07:25] LABS: Slide Review Reflex No
[2022-02-28 07:32] LABS: Albumin* 2.4 g/dL (3.3-5.0); Chloride* 105 mmol/L (96-114); Sodium* 135 mmol/L (135-149)
[2022-02-28 07:33] LABS: Potassium* 3.9 mmol/L (3.6-5.1)
[2022-02-28 07:35] LABS: Alanine Aminotransferase* 10 U/L (4-50); Alkaline Phosphatase* 62 U/L (40-150); Aspartate Amino Transferase* 22 U/L (12-35); Bilirubin Total* 0.4 mg/dL (0.1-1.5); Blood Urea Nitrogen* 8 mg/dL (7-30); Carbon Dioxide* 26 mmol/L (20-32); Creatinine* 0.7 mg/dL (0.5-1.5); Estimated Glomerular Filt Rate 94 ml/min; Total Protein* 5.3 g/dL (6.0-8.3)
[2022-02-28 07:36] LABS: Calcium* 8.1 mg/dL (8.4-10.6); Glucose* 136 mg/dL (60-115); Magnesium* 1.8 mg/dL (1.5-2.6)
[2022-02-28 07:40] LABS: INR 1.31 (0.91-1.10); Prothrombin Time 16.7 Seconds
[2022-02-28 07:41] LABS: Partial Thromboplastin Time* 58 Seconds (23-33)
[2022-02-28 07:44] LABS: NT Pro B Type NatriureticPept* 3740 PG/mL (0-450)
[2022-02-28 07:48] LABS: Troponin I* 0.01 ng/mL (0.01-0.04)
[2022-02-28] MEDS: CARBIDOPA-LEVODOPA 25-100 TABLET 1 TAB PO ×3 (08:02→20:46)
[2022-02-28] MEDS: LACTOBACILLUS ACIDOPHILUS 1 TABLET 2 TAB PO ×3 (08:02→18:26)
[2022-02-28 08:03] LABS: Erythrocyte SedimentationRate* 86 mm/hr (2-15)
[2022-02-28] MEDS: METOPROLOL TARTRATE 50 MG TABLET 75 MG PO ×2 (09:26→20:35)
--- NOTE | 2022-02-28 10:25 | PM.GSPN ---
Subjective Subjective Date Seen: 02/28/22 Interval history: Patient is doing well this morning. He does admit to at times feeling short of breath, but overall thinks that his breathing continues to improve. He wonders if this infection came from aspiration. He states that when he eats, mucus goes in the back of his throat causing him to cough, which makes him suck in food and liquid. Denies any fevers or chills. No other concerns. Exam Narrative: Exam Narrative: General: Alert and oriented, no acute distress. HEENT: Moist mucous membranes Respiratory: Equal breath rise bilaterally, slightly decreased breath sounds on the left lower base with some crackles apparent. Maintained on room air Const: Vital Signs, click to edit/add: Vital Signs - 24 hr 02/27/22 12:00 02/27/22 15:00 02/27/22 15:00 Temperature 98.6 F Pulse Rate 94 Pulse Rate [Left R adial] 96 Pulse Rate [Pulse Oximeter] 96 Respiratory Rate 20 20 Blood Pressure [Le ft Arm] 107/67 Blood Pressure [Ri ght Arm] Pulse Oximetry 96 96 Oxygen Delivery Me thod Room Air Room Air Fraction of Inspir ed Oxygen 02/27/22 15:00 02/27/22 16:00 02/27/22 20:00 Temperature 97.8 F 98.1 F Pulse Rate Pulse Rate [Left R adial] 96 94 92 Pulse Rate [Pulse Oximeter] 94 94 Respiratory Rate 20 20 20 Blood Pressure [Le ft Arm] Blood Pressure [Ri ght Arm] 110/64 136/74 Pulse Oximetry 94 94 Oxygen Delivery Me thod Room Air Room Air Fraction of Inspir ed Oxygen 0.21 02/27/22 23:00 02/27/22 23:00 02/27/22 23:00 Temperature Pulse Rate 91 Pulse Rate [Left R adial] 92 Pulse Rate [Pulse Oximeter] Respiratory Rate 20 20 Blood Pressure [Le ft Arm] Blood Pressure [Ri ght Arm] Pulse Oximetry 94 Oxygen Delivery Me thod Room Air Fraction of Inspir ed Oxygen 02/27/22 23:30 02/28/22 03:47 02/28/22 07:30 Temperature 99.1 F 98.6 F Pulse Rate 95 Pulse Rate [Left R adial] 90 93 Pulse Rate [Pulse Oximeter] Respiratory Rate 20 24 Blood Pressure [Le ft Arm] Blood Pressure [Ri ght Arm] 139/76 129/74 Pulse Oximetry 92 94 Oxygen Delivery Me thod Room Air Room Air Fraction of Inspir ed Oxygen 02/28/22 07:30 02/28/22 08:00 Temperature 97.9 F Pulse Rate Pulse Rate [Left R adial] 95 Pulse Rate [Pulse Oximeter] 95 Respiratory Rate 18 Blood Pressure [Le ft Arm] Blood Pressure [Ri ght Arm] 141/83 H Pulse Oximetry 93 93 Oxygen Delivery Me thod Room Air Room Air Fraction of Inspir ed Oxygen Labs/Imaging Labs Labs: Inflammatory markers continue to trend down, no evidence of leukocytosis. Imaging Imaging: The extremity ultrasound with evidence of DVT. Chest x-ray this morning stable. Progress Note: A&P Assessment and plan (1) Pleural effusion: Problem details: Possible loculated empyema vs effusion - pleura not enhancing on CT Status: Acute Assessment and Plan: Patient is a 76-year-old male, currently hospitalized for community-acquired pneumonia with associated parapneumonic effusion. On review of imaging the fluid is loculated, but appears simple and is not consistent with an empyema. Clinically patient continues to maintain oxygenation on room air and inflammatory markers continue to trend down towards normal. Chest x-ray this morning is stable. Patient reports improvement in his breathing. No indication at this time for thoracentesis. Surgery will not continue to follow. Please re-consult with any clinical changes or concerns.
[2022-02-28] MEDS: HEPARIN 25,000 UNIT/500 ML BAG 29 UNIT IV (10:37)
--- NOTE | 2022-02-28 10:38 | RESP.RT ---
Patient sitting up in bed appears comfortable. On room air, respiratory rate 18-20/minute, breathing regular easy, SaO2 93%. Bilateral breath sounds, Right lung clear, good air movement, base slightly diminished, Left upper lobe good air movement, very fine crackles noted, Left middle/Lower lobes very diminished/almost absent. Good/Fair nonproductive cough. Patient states has been using Aerobika.
[2022-02-28 12:21] LABS: Partial Thromboplastin Time* 69 Seconds (23-33)
[2022-02-28] MEDS: AZITHROMYCIN 250 MG TABLET 500 MG PO (12:57)
[2022-02-28] MEDS: TRIAMCINOLONE ACETONIDE CREAM 0.1 % 1 APPLIC TOPICAL ×2 (12:59→20:46)
--- NOTE | 2022-02-28 13:23 | P.IMPN_ITS ---
Progress Note: A&P Assessment and plan (1) Pleural effusion: Problem details: Possible loculated empyema vs effusion - pleura not enhancing on CT Status: Acute Assessment and Plan: No hypoxia or fever over last 1-2 days. Continue zosyn. CXR stable. Suspect this is effusion, not empyema. Appreciate Dr. Beltran's input and recommendations. Plan: continue antibiotics. Reimage and consider diagnostic thoracentesis if worsening or return of fever. (2) Community acquired pneumonia: Problem details: With background significant smoking history and obstructive pneumonia secondary to mass is considered - None seen on CT chest 02/25/22. Status: Acute Assessment and Plan: Continue zosyn and azithromycin. C/o aspiration with swallowing. Obtain speech therapy consult. (3) Atrial flutter with rapid ventricular response: Problem details: -in the setting of PE, hypovolemia vs sepsis; LBBB. Status: Acute Assessment and Plan: On oral diltiazem and metoprolol. Tolerated another increase dose of metoprolol. HR low 90's, better control with ambulation. Holding lisinopril to allow higher BP. (4) Pulmonary embolism: Problem details: Left lower lung Status: Acute Assessment and Plan: Transition to oral anticoagulant today. Then d/c heparin. (5) DVT of leg (deep venous thrombosis): Problem details: left mid femoral vein Status: Acute Assessment and Plan: As above in PE. (6) History of DVT (deep vein thrombosis): Status: Chronic (7) History of breast cancer in male: Status: Chronic (8) Smoking greater than 40 pack years: Problem details: Noted Status: Chronic (9) Parkinsons: Problem details: Moderate. Mild rigidity and masked expression. Status: Acute Assessment and Plan: Continue Sinemet. (10) Hypertension: Status: Chronic (11) Hyperlipidemia: Status: Chronic (12) Diarrhea: Problem details: C.diff neg 02/27/22. Likely due to antibiotics. Status: Acute Assessment and Plan: Continue lactobacillus. (13) Rash: Status: Acute Assessment and Plan: Clearing. Does not appear to be drug rash. Subjective Time Seen by Provider: 08:40 Date Seen: 02/28/22 Interval history: Feeling better today. He was interactive and asking about rehab. He even smiled today, which I had not seen him do before. SOB improving. Denies CP. BMs still loose, but better than yesterday. I called his daughter, Hallie, to give her an update. Our conversation was limited due to poor cell phone [employer] school music [employer]. We were able to have enough of a conversation for me to give her an update. She noted that her other sisters were likely unavailable today as well. She said they would all be back in town tomorrow and that we could all talk then. Exam Narrative: Exam Narrative: General: No acute distress. Awake, alert, oriented. Parkinsonian masked faces with poor eye contact. Mood brighter than yesterday. No pallor. No jaundice. Cardiovascular: Irregularly irregular. No murmur. Respiratory: Diminished breath sounds and some crackles in the left lower lung field. Right lung is clear to auscultation. Abdomen: Bowel sounds present. Soft, nondistended, nontender. Skin: Rash on back improving, about 75% better. No rash elsewhere. Const: Vital Signs, click to edit/add: Vital Signs - 24 hr 02/27/22 15:00 02/27/22 15:00 02/27/22 15:00 Temperature Pulse Rate 94 Pulse Rate [Left R adial] 96 Pulse Rate [Pulse Oximeter] 94 Respiratory Rate 20 20 Blood Pressure [Le ft Arm] Blood Pressure [Ri ght Arm] Pulse Oximetry 96 Oxygen Delivery Me thod Room Air Fraction of Inspir ed Oxygen 02/27/22 16:00 02/27/22 20:00 02/27/22 23:00 Temperature 97.8 F 98.1 F Pulse Rate 91 Pulse Rate [Left R adial] 94 92 Pulse Rate [Pulse Oximeter] 94 Respiratory Rate 20 20 Blood Pressure [Le ft Arm] Blood Pressure [Ri ght Arm] 110/64 136/74 Pulse Oximetry 94 94 Oxygen Delivery Me thod Room Air Room Air Fraction of Inspir ed Oxygen 0.21 02/27/22 23:00 02/27/22 23:00 02/27/22 23:30 Temperature 99.1 F Pulse Rate Pulse Rate [Left R adial] 92 90 Pulse Rate [Pulse Oximeter] Respiratory Rate 20 20 20 Blood Pressure [Le ft Arm] Blood Pressure [Ri ght Arm] 139/76 Pulse Oximetry 94 92 Oxygen Delivery Me thod Room Air Room Air Fraction of Inspir ed Oxygen 02/28/22 03:47 02/28/22 07:30 02/28/22 07:30 Temperature 98.6 F Pulse Rate 95 Pulse Rate [Left R adial] 93 Pulse Rate [Pulse Oximeter] Respiratory Rate 24 Blood Pressure [Le ft Arm] Blood Pressure [Ri ght Arm] 129/74 Pulse Oximetry 94 93 Oxygen Delivery Me thod Room Air Room Air Fraction of Inspir ed Oxygen 02/28/22 08:00 02/28/22 10:33 02/28/22 13:05 Temperature 97.9 F 97.7 F Pulse Rate Pulse Rate [Left R adial] 95 92 Pulse Rate [Pulse Oximeter] 95 Respiratory Rate 18 18 24 Blood Pressure [Le ft Arm] 150/85 H Blood Pressure [Ri ght Arm] 141/83 H Pulse Oximetry 93 92 95 Oxygen Delivery Me thod Room Air Room Air Room Air Fraction of Inspir ed Oxygen Documenting provider has reviewed patient's vital signs: yes Labs Labs: Laboratory Results - last 24 hr 02/27/22 02/28/22 02/28/22 14:14 00:12 06:04 WBC 10.34 RBC 3.63 L Hgb 10.8 L Hct 33.0 L MCV 91 MCH 30 MCHC 33 Plt Count 399 ESR INR 1.25 H APTT 47 H 74 H VBG pH VBG pCO2 VBG pO2 VBG HCO3 Sodium Potassium Chloride Carbon Dioxide BUN Creatinine Estimated Creat Clear Estimated GFR Glucose Calcium Magnesium Total Bilirubin AST ALT Alkaline Phosphatase Troponin I C-Reactive Protein NT-Pro-B Natriuret Pep Total Protein Albumin Procalcitonin 02/28/22 02/28/22 02/28/22 06:04 06:04 06:04 WBC RBC Hgb Hct MCV MCH MCHC Plt Count ESR INR 1.31 H APTT 58 H VBG pH 7.461 H VBG pCO2 39 L VBG pO2 67.9 H VBG HCO3 28 Sodium 135 Potassium 3.9 Chloride 105 Carbon Dioxide 26 BUN 8 Creatinine 0.7 Estimated Creat Clear 68.80 Estimated GFR 94 Glucose 136 H Calcium 8.1 L Magnesium 1.8 Total Bilirubin 0.4 AST 22 ALT 10 Alkaline Phosphatase 62 Troponin I 0.01 C-Reactive Protein 14.0 H NT-Pro-B Natriuret Pep 3740 H Total Protein 5.3 L Albumin 2.4 L Procalcitonin Cancelled 02/28/22 02/28/22 02/28/22 06:04 06:04 11:55 WBC RBC Hgb Hct MCV MCH MCHC Plt Count ESR 86 H INR APTT Cancelled 69 H VBG pH VBG pCO2 VBG pO2 VBG HCO3 Sodium Potassium Chloride Carbon Dioxide BUN Creatinine Estimated Creat Clear Estimated GFR Glucose Calcium Magnesium Total Bilirubin AST ALT Alkaline Phosphatase Troponin I C-Reactive Protein NT-Pro-B Natriuret Pep Total Protein Albumin Procalcitonin
[2022-02-28] MEDS: RIVAROXABAN 10 MG TABLET 15 MG PO (18:23)
--- NOTE | 2022-02-28 19:19 | PC.NURSE ---
shift note; vss stable. pt afeb. pt has crkls to LLL and has audible wheezing. pt refused prn neb. pt states he has postnasal drip that makes him cough and he has thick phlegm always collecting in back of this throat. IV Patent. Pt up 1/walker but states he is dizzy with activity. pt stated this dizziness is normal for him and is unchanged.
[2022-02-28] MEDS: CARBOXYMETHYLCELLULOSE (REFRESH PLUS) TEARS 1 DROP EYE-BOTH (20:35)
[2022-03-01 00:05] VITALS: BP 125/75; PULSE 85; RESP 22; TEMP 36.9; O2SAT 95
[2022-03-01] MEDS: dilTIAZem 30 MG TABLET PO ×3 (00:29→12:52)
[2022-03-01] MEDS: PIPERACILLIN/TAZOBACTAM 3.375 GM in 0.9 % SODIUM CHLORIDE Mini-bag 100 ML IVPB ×2 (03:00→08:54)
[2022-03-01 03:54] VITALS: BP 131/85; PULSE 90; RESP 22; TEMP 36.6; O2SAT 95
--- NOTE | 2022-03-01 04:52 | PC.NURSE ---
: patient up with assist X1, room air, afebrile. aflutter with a rate in the 90s. appears to have slept on and off entire shift.
[2022-03-01 07:00] VITALS: BP 136/81; PULSE 92; PULSE 95; RESP 18; TEMP 37.1; O2SAT 93; O2SAT 94
[2022-03-01 07:10] LABS: HCO3 VBG 29 mmol/L (21-28); PCO2 VBG 37 mmHG (40-50); PO2 VBG 43.2 mmHG (25-47)
[2022-03-01 07:20] VITALS: PULSE 92
[2022-03-01 07:21] LABS: Mean Corpuscular HGB Conc 32 gm/dL (32-36); Mean Corpuscular Hemoglobin 29 pg (26-34); Mean Corpuscular Volume 91 fL (80-100); Platelet Count* 407 K/uL (140-440); Red Blood Count 3.75 m/uL (4.30-5.90); White Blood Count* 9.94 K/uL (4.50-11.00)
[2022-03-01 07:23] LABS: Slide Review Reflex No
[2022-03-01 07:31] LABS: Chloride* 104 mmol/L (96-114)
[2022-03-01 07:32] LABS: Albumin* 2.5 g/dL (3.3-5.0); Sodium* 137 mmol/L (135-149)
[2022-03-01 07:33] LABS: INR 1.62 (0.91-1.10); Potassium* 3.7 mmol/L (3.6-5.1); Prothrombin Time 19.7 Seconds
[2022-03-01 07:35] LABS: Alanine Aminotransferase* 14 U/L (4-50); Alkaline Phosphatase* 66 U/L (40-150); Aspartate Amino Transferase* 21 U/L (12-35); Bilirubin Total* 0.4 mg/dL (0.1-1.5); Carbon Dioxide* 27 mmol/L (20-32); Creatinine* 0.8 mg/dL (0.5-1.5); Estimated Glomerular Filt Rate 91 ml/min; Total Protein* 5.4 g/dL (6.0-8.3)
[2022-03-01 07:36] LABS: Blood Urea Nitrogen* 7 mg/dL (7-30); Calcium* 8.3 mg/dL (8.4-10.6); Glucose* 106 mg/dL (60-115); Magnesium* 1.8 mg/dL (1.5-2.6)
[2022-03-01 07:42] LABS: NT Pro B Type NatriureticPept* 4960 PG/mL (0-450)
[2022-03-01 07:50] LABS: C Reactive Protein* 14.3 mg/dL (0.5-1.0); Troponin I* < 0.01 ng/mL (0.01-0.04)
[2022-03-01] MEDS: RIVAROXABAN 10 MG TABLET 15 MG PO (08:53)
[2022-03-01] MEDS: CARBIDOPA-LEVODOPA 25-100 TABLET 1 TAB PO ×2 (08:53→14:03)
[2022-03-01] MEDS: LACTOBACILLUS ACIDOPHILUS 1 TABLET 2 TAB PO ×2 (08:53→12:51)
[2022-03-01] MEDS: METOPROLOL TARTRATE 50 MG TABLET 75 MG PO (08:54)
[2022-03-01] MEDS: TRIAMCINOLONE ACETONIDE CREAM 0.1 % 1 APPLIC TOPICAL (10:12)
[2022-03-01] MEDS: CARBOXYMETHYLCELLULOSE (REFRESH PLUS) TEARS 1 DROP EYE-BOTH (10:21)
[2022-03-01] MEDS: IPRAT-ALBUT 0.5-2.5 MG/3 ML NEB 1 NEB IH (10:22)
[2022-03-01 11:00] VITALS: BP 123/76; PULSE 93; RESP 24; TEMP 37.2; O2SAT 90
--- NOTE | 2022-03-01 12:55 | PM.DS1 ---
DS: Providers Provider Time Seen by Provider: 08:15 Date Seen: 03/01/22 Date of admission: 02/25/22 10:13 Primary care physician: Francisco Navarro MD Admitting Clinician: Ramez Zhang MD Consults: 02/23/22 12:17 Consult to Occupational Therapy [CONS] Routine Comment: Reason(s) for OT Consult:: Evaluate and Treat Any Restrictions?:: No Restrictions Consult to Physical Therapy [CONS] Routine Comment: Reason(s) for PT Consult:: Evaluate and Treat Any Restrictions?:: No Restrictions Consult to Foreign Languages Professor [CONS] Routine Comment: Reason for Consult:: Social Service Consult 02/25/22 15:01 Consult to Respiratory Therapy [CONS] Routine Comment: Reason(s) for RT Consult:: Consult Comment: chest PT; empyema in the left lower thorax, ISP, [place], pursed lip breathing -- declining with Aflutter now. 02/26/22 12:22 Consult to Physician [CONS] Routine Comment: Consulting Provider: Marce Beltran Has provider been notified: Yes 02/28/22 10:26 Consult to Speech Therapy [CONS] Routine Comment: Reason(s) for Speech Consult:: Swallowing Difficulty Comment: He feels like he's aspirating when he swallows Attending Physician on discharge: Antoinette Del Valle MD Date of Discharge: 03/01/22 DS: Diagnosis Discharge Diagnosis (1) Community acquired pneumonia: Status: Acute Problem details: With background significant smoking history and obstructive pneumonia secondary to mass is considered - None seen on CT chest 02/25/22. (2) Rash: Status: Acute Problem details: on back (3) Diarrhea: Status: Acute Problem details: C.diff neg 02/27/22. Likely due to antibiotics. (4) DVT of leg (deep venous thrombosis): Status: Acute Problem details: left mid femoral vein (5) Pulmonary embolism: Status: Acute Problem details: Left lower lung (6) Abnormal CT scan of lung: Status: Acute Problem details: Questionable filling defect/PE in LLL (7) Pleural effusion: Status: Acute Problem details: Possible loculated empyema vs effusion - pleura not enhancing on CT (8) Atrial flutter with rapid ventricular response: Status: Acute Problem details: -in the setting of PE, hypovolemia vs sepsis; LBBB. (9) Parkinsons: Status: Acute Problem details: Moderate. Mild rigidity and masked expression. (10) History of breast cancer in male: Status: Chronic (11) History of DVT (deep vein thrombosis): Status: Chronic (12) Smoking greater than 40 pack years: Status: Chronic Problem details: Noted (13) Hypertension: Status: Chronic (14) Hyperlipidemia: Status: Chronic (15) Dysphagia: Status: Acute Problem details: patient reports this, not seen on speech therapy eval, needs outpatient modified barium swallow study DS: Summary Hospital Course Hospital Course: This is a 76-year-old male who lives independently at [facility] with his who had a week of upper respiratory symptoms and weakness. This was also associated with a runny nose, cough, decreased appetite, feeling feverish, weakness and decreased energy. Upon presentation had a leukocytosis with a white count of 17.25, hemoglobin 12, CRP 26, prolactin 4 and initially elevated lactate then normalized over the time in the emergency department. SARS-CoV-2 and influenza swabs were negative. Chest x-ray showed a left basilar pleural effusion with adjacent compressive atelectasis versus infiltrates. EKG showed left bundle-branch block, note that patient has a history of cardiac radiofrequency ablation. He was admitted on Rocephin and azithromycin. He had some hypotension and tachycardia, EKG notable for atrial flutter with rapid ventricular response. He was given IV fluids and his usual antihypertensives were on hold. He was started on diltiazem and metoprolol and able to tolerate these well with improved heart rate control. CT chest was obtained and showed a pleural effusion versus empyema. Pleura were not enhancing on the CT in the loculated fluid was a small amount. General surgery was consulted for this and the decision was made to treat with broadened antibiotics and monitor. Additionally found on CT was question of PE. Lower extremity Doppler ultrasounds revealed a left lower extremity DVT. Patient was started on enoxaparin and then transition to heparin in the event that he should need a thoracentesis. Over the next few days patient made significant improvement and inflammatory markers also improved. It is thought that this is less likely to be an empyema given this improvement. Pleural effusion remains stable on x-ray. Patient has now been transitioned over to Xarelto for treatment of the PE and DVT. Heart rate is stable on metoprolol and diltiazem and blood pressures are also stable, no further hypotension. Strength and ambulation have been improving with PT and OT. He is stable for discharge today with ongoing outpatient PT and OT in the home. He complained of chronic difficulty swallowing for which he was seen by speech therapy. They recommended a diet change as below and outpatient modified barium swallow study. Time Spent with Patient Time attestation: Total time spent providing and/or coordinating discharge services: Exam Narrative: Exam Narrative: General: No acute distress. Awake, alert, oriented. Parkinsonian masked faces. No pallor. No jaundice. Cardiovascular: Irregularly irregular. No murmur. Respiratory: Diminished breath sounds and some crackles in the left lower lung field. Right lung is clear to auscultation. Abdomen: Bowel sounds present. Soft, nondistended, nontender. Skin: Rash on back stable from yesterday. No rash elsewhere. Const: Vital Signs, click to edit/add: Vital Signs - 24 hr 02/28/22 13:05 02/28/22 15:00 02/28/22 15:00 Temperature 97.7 F Pulse Rate 90 Pulse Rate [Left R adial] 92 92 Pulse Rate [Pulse Oximeter] Respiratory Rate 24 24 Blood Pressure [Le ft Arm] 150/85 H Blood Pressure [Ri ght Arm] Pulse Oximetry 95 Oxygen Delivery Me thod Room Air Fraction of Inspir ed Oxygen 02/28/22 15:00 02/28/22 17:00 02/28/22 20:47 Temperature 97.9 F 97.9 F Pulse Rate Pulse Rate [Left R adial] 91 Pulse Rate [Pulse Oximeter] 91 95 Respiratory Rate 22 22 Blood Pressure [Le ft Arm] Blood Pressure [Ri ght Arm] 132/62 139/80 Pulse Oximetry 95 95 95 Oxygen Delivery Me thod Room Air Room Air Room Air Fraction of Inspir ed Oxygen 02/28/22 23:00 02/28/22 23:00 02/28/22 23:00 Temperature Pulse Rate 90 Pulse Rate [Left R adial] 91 Pulse Rate [Pulse Oximeter] 95 Respiratory Rate 22 22 Blood Pressure [Le ft Arm] Blood Pressure [Ri ght Arm] Pulse Oximetry 95 Oxygen Delivery Me thod Room Air Fraction of Inspir ed Oxygen 0.21 03/01/22 00:05 03/01/22 03:54 03/01/22 07:00 Temperature 98.5 F 98 F Pulse Rate Pulse Rate [Left R adial] Pulse Rate [Pulse Oximeter] 85 90 Respiratory Rate 22 22 Blood Pressure [Le ft Arm] Blood Pressure [Ri ght Arm] 125/75 131/85 Pulse Oximetry 95 95 94 Oxygen Delivery Me thod Room Air Room Air Room Air Fraction of Inspir ed Oxygen 03/01/22 07:00 03/01/22 07:20 03/01/22 07:00 Temperature 98.7 F Pulse Rate 92 Pulse Rate [Left R adial] Pulse Rate [Pulse Oximeter] 95 92 Respiratory Rate 18 18 Blood Pressure [Le ft Arm] 136/81 Blood Pressure [Ri ght Arm] Pulse Oximetry 93 Oxygen Delivery Me thod Room Air Fraction of Inspir ed Oxygen 03/01/22 11:00 Temperature 98.9 F Pulse Rate Pulse Rate [Left R adial] Pulse Rate [Pulse Oximeter] 93 Respiratory Rate 24 Blood Pressure [Le ft Arm] 123/76 Blood Pressure [Ri ght Arm] Pulse Oximetry 90 Oxygen Delivery Me thod Room Air Fraction of Inspir ed Oxygen Documenting provider has reviewed patient's vital signs: yes DS: Data Data Completed and Pending Completed studies during hospitalization: Ordering Physician: Salinas Ha M.D. Date of Service: 02/22/22 Procedure(s): XR chest 1V portable Accession Number(s): [id number] cc: Salinas Ha M.D.; Francisco Navarro M.D.~ For Patients: As a result of the Cures Act, medical imaging exams and procedure reports are released immediately into your electronic medical record. You may view this report before your referring provider. If you have questions, please contact your health care provider. Indication: Shortness of breath, fever Comparison: None available. Technique: Single AP view chest Findings: There is hyperinflation and chronic interstitial change. There is left basilar pleural effusion with adjacent compressive atelectasis versus infiltrates. The right hemithorax is clear. The cardiac silhouette is enlarged with a tortuous thoracic aorta. The bony thorax is grossly intact. Impression: Left basilar pleural effusion with adjacent compressive atelectasis versus infiltrates. Dictated by Nam Ortiz MD @ 02/22/2022 6:50:26 PM (Electronically Signed) Ordering Physician: Aura Vargas M.D. Date of Service: 02/25/22 Procedure(s): CT chest w con Accession Number(s): [id number] cc: Aura Vargas M.D.; Francisco Navarro M.D.~ For Patients: As a result of the Cures Act, medical imaging exams and procedure reports are released immediately into your electronic medical record. You may view this report before your referring provider. If you have questions, please contact your health care provider. Indication: Obstructive pneumonia, history of breast cancer Technique: Volumetric multidetector CT images of the chest were obtained after the administration of IV contrast. 95 cc Isovue 370 low osmolar intravenous contrast Comparison: CT chest July 21, 2021 Findings: The thoracic inlet and thyroid gland are unremarkable. The thoracic aorta is non aneurysmal with mild to moderate scattered atherosclerotic calcification. There are questionable filling defects within the distal left subsegmental pulmonary arteries which may represent diminished flow versus small pulmonary emboli. No other filling defects are appreciated. There are somewhat reactive mediastinal and hilar lymph nodes. There is moderate central bronchial thickening and mucoid impaction predominantly of the lower lobe bronchi. There is demonstration of a moderate loculated left-sided pleural effusion with adjacent compressive atelectasis and/or infiltrates. There is mild thickening and enhancement of the pleura which may represent a component of empyema change. There is trace pericardial effusion appreciated. There is no evidence of pulmonary mass or suspicious pulmonary nodule. The partially visualized upper abdominal viscera are within normal limits. The thoracic vertebral body heights are grossly maintained with minimal endplate Schmorl`s defects. There is no significant spondylolisthesis or displaced fracture. Impression: Demonstration of somewhat multiloculated left-sided pleural effusion with adjacent compressive atelectasis and/or infiltrates with moderate central bronchial thickening and mucoid impaction. There is minimal enhancement and thickening of the pleura along the lung base which may represent a component of empyema. There is demonstration of questionable focal filling defect within the central right lower lobe subsegmental pulmonary artery versus diminished flow and admixture of contrast within atelectatic bronchovascular structures. No other pulmonary emboli are appreciated. Please note that all CT scans at this facility use dose modulation, iterative reconstruction, and/or weight-based dosing when appropriate to reduce radiation dose to as low as reasonably achievable. Dictated by Nam Ortiz MD @ 02/25/2022 1:54:04 PM (Electronically Signed) Ordering Physician: Aura Vargas M.D. Date of Service: 02/26/22 Procedure(s): XR chest 2V Accession Number(s): [id number] cc: Aura Vargas M.D.; Francisco Navarro M.D.~ For Patients: As a result of the Cures Act, medical imaging exams and procedure reports are released immediately into your electronic medical record. You may view this report before your referring provider. If you have questions, please contact your health care provider. INDICATION: F/U LEFT PLEURAL EFFUSION TECHNIQUE: Chest 2 views COMPARISON: CT 02/25/2022 FINDINGS: Left pleural effusion appears similar. Similar parenchymal opacities within the inferior lingula and left lower lobe. Some of the pleural fluid tracks along the major fissure. Fluid loculation are also present. Right lung is clear. No pneumothorax. Mediastinal contours are similar. IMPRESSION: Similar multiloculated left pleural effusion with left lower lobe infiltrate. Dictated by Francisco Castaneda MD @ 02/26/2022 10:28:45 AM (Electronically Signed) Ordering Physician: Antoinette Del Valle MD Date of Service: 02/26/22 Procedure(s): US venous LE BI Accession Number(s): [id number] cc: Antoinette Del Valle MD; Francisco Navarro M.D.~ For Patients: As a result of the Cures Act, medical imaging exams and procedure reports are released immediately into your electronic medical record. You may view this report before your referring provider. If you have questions, please contact your health care provider. INDICATION: Possible PE seen on chest CT. History of right lower extremity DVT. COMPARISON: None. TECHNIQUE: A compression venous ultrasound exam was performed of both lower extremities using wolf scale imaging, color Doppler and spectral Doppler analysis. FINDINGS: Right: Sonographic imaging of the right lower extremity demonstrates normal compressibility and color Doppler venous blood flow within the common femoral, deep femoral, and proximal greater saphenous veins. Within the thigh the femoral vein is patent and compressible. At a lower level the popliteal, peroneal, and posterior tibial veins also show normal compressibility and color Doppler venous blood flow. Left: Sonographic imaging of the left lower extremity demonstrates normal compressibility and color Doppler venous blood flow within the common femoral, deep femoral, and proximal greater saphenous veins. There is thrombus in the left mid femoral vein. At a lower level the popliteal, peroneal, and posterior tibial veins also show normal compressibility and color Doppler venous blood flow. IMPRESSION: 1. Positive for acute DVT in the left mid femoral vein. 2. Negative for acute DVT in the right lower extremity. 3. Findings discussed with Yosef Logan at 4:15 p.m. on 02/26/2022. Dictated by Deonna Erickson MD @ 02/26/2022 4:11:59 PM (Electronically Signed) Ordering Physician: Antoinette Del Valle MD Date of Service: 02/28/22 Procedure(s): XR chest 1V portable Accession Number(s): [id number] cc: Antoinette Del Valle MD; Francisco Navarro M.D.~ For Patients: As a result of the Cures Act, medical imaging exams and procedure reports are released immediately into your electronic medical record. You may view this report before your referring provider. If you have questions, please contact your health care provider. Indication: Pneumonia and left-side pleural effusion. Technique: Chest 1 view. Comparison: 02/26/2022. Findings/Impression: Cardiovascular and mediastinum: Heart size and vasculature are normal in caliber and appearance. Lungs and pleural space: Unchanged left lung opacity which could represent a locule pleural effusion with atelectasis and/or infiltrate right lung and pleural space remain clear. No pneumothorax. Bones and soft tissues: No acute findings. Dictated by Franklin Velazquez MD @ 02/28/2022 8:26:16 AM (Electronically Signed) EKG 02/22/2022 5:40 p.m.: Wide QRS rhythm, left axis deviation, left bundle-branch block, heart rate 114 beats per minute. Echocardiogram 02/23/2022: Normal left ventricular size, mildly increased wall thickness, normal global systolic function, calculated EF of 57%. Abnormal septal motion consistent with left bundle-branch block. Right ventricular cavity size is normal, global systolic RV function is normal, no significant valve disease detected. No prior studies available for comparison. EKG 02/25/2022 12:14 p.m.: Atrial flutter with variable AV block. Left bundle branch block, 114 beats per minute. Abnormal EKG. Labs on day of discharge: Labs from last 24 hours 03/01/22 03/01/22 03/01/22 07:07 07:07 07:07 WBC RBC Hgb Hct MCV MCH MCHC Plt Count INR 1.62 H VBG pH 7.500 H VBG pCO2 37 L VBG pO2 43.2 VBG HCO3 29 H Sodium 137 Potassium 3.7 Chloride 104 Carbon Dioxide 27 BUN 7 Creatinine 0.8 Estimated Creat Clear 68.80 Estimated GFR 91 Glucose 106 Calcium 8.3 L Magnesium 1.8 Total Bilirubin 0.4 AST 21 ALT 14 Alkaline Phosphatase 66 Troponin I < 0.01 L C-Reactive Protein 14.3 H NT-Pro-B Natriuret Pep 4960 H Total Protein 5.4 L Albumin 2.5 L Procalcitonin Cancelled 03/01/22 07:07 WBC 9.94 RBC 3.75 L Hgb 11.0 L Hct 34.0 L MCV 91 MCH 29 MCHC 32 Plt Count 407 INR VBG pH VBG pCO2 VBG pO2 VBG HCO3 Sodium Potassium Chloride Carbon Dioxide BUN Creatinine Estimated Creat Clear Estimated GFR Glucose Calcium Magnesium Total Bilirubin AST ALT Alkaline Phosphatase Troponin I C-Reactive Protein NT-Pro-B Natriuret Pep Total Protein Albumin Procalcitonin Discharge Plan Discharge Disposition: Home, Self-Care Date of Admission: 02/25/22 10:13 Attending Provider on Discharge: Antoinette Del Valle Consulting Providers: Marce Beltran Primary Care Provider: Francisco Navarro Condition: Unchanged Anticipated Discharge Date/Time: 03/01/22 13:18 Discharge Medications: New docusate sodium 100 mg Capsule 100 mg PO BID PRN (Reason: Constipation) Qty: 60 0RF diltiazem HCl 60 mg capsule,extended release 12 hr 60 mg PO BID Qty: 60 2RF metoprolol tartrate 50 mg Tablet 75 mg PO BID Qty: 90 0RF Lactobacillus acidophilus 0.5 mg (100 million cell) Tablet 1 tab PO TIDWM Qty: 90 0RF amoxicillin-pot clavulanate 875-125 mg tablet 1 tab PO BID Qty: 10 0RF Xarelto DVT-PE Treat 30d Start 15 mg (42)- 20 mg (9) tablets,dose pack See Rx Instructions .ROUTE .COMPLEX Qty: 51 0RF Rx Instructions: take one-15 mg tablet twice daily for 21 days, then one-20 mg tablet once daily; must take with meal/food triamcinolone acetonide 0.1 % Cream 1 applic topical BID Qty: 15 0RF Continued carbidopa-levodopa 25-100 mg tablet 1 tab PO TID Label Comments: TAKE 1 TABLET BY MOUTH THREE TIMES DAILY Discontinued lisinopril 20 mg tablet 20 mg PO DAILY Label Comments: Take 1 tablet by mouth every morning amlodipine 5 mg tablet 5 mg PO DAILY Label Comments: Take 1 tablet by mouth every morning atenolol 50 mg tablet 50 mg PO DAILY Label Comments: TAKE 1 TABLET BY MOUTH DAILY Discharge Orders: Discharge Order (Routine); Ordered 03/01/22 Ordered By: Antoinette Del Valle Additional Instructions: Physical and occupational therapy for evaluation and treatment in the home. Modified barium swallow study. Activity Level: Activity as Tolerated and Use Walker Discharge Diet: Regular and Other Diet Detail: [place] thick liquids, level 6 dysphagia diet Follow Up Appointments: Francisco Navarro MD [Primary Care Provider] - (5 days, Hgb, CXR - follow up left pleural effusion) Forms: [facility] Info Instructions
--- NOTE | 2022-03-01 13:56 | PC.SOCIAL ---
Phone call to Joellen at [facility] at [phone]. Provided an update on pt. [facility] can increase services. Need a signed medication list by doctor to do medication management. Pt/OT services will occur with [facility] starting Tuesday at 12:30 pm. Discharge will occur around 2:30 pm today. Joellen will go over the care plan with family upon returning to [facility] to increase services for Pt. Faxed updated progress note, H&P, Medication list, and PT/OT notes to Joellen at [facility]. Completed [facility] orders and faxed to [facility]. Lanny Waddell will see pt at [facility] on Tuesday at 12:30 pm. Phone call to beatrice Waller. Provided an update. Maya will transport pt to [facility] at 2:30 pm today.
[2022-03-01 14:00] VITALS: BP 97/67; PULSE 92; RESP 24; TEMP 37.2
[2022-03-01] MEDS: AZITHROMYCIN 250 MG TABLET 500 MG PO (14:03)
--- NOTE | 2022-03-01 17:36 | PC.NURSE ---
Discharge-- Pleasant and cooperative, alert and oriented patient was discharged back to [facility] with increased services with family at approximately 1440. VSS and pt is afebrile. SPO2 >90% on RA. He denied any pain. Crackles auscultated in bilateral posterior bases of lungs, otherwise CTA. Occasional thick mucousy phlegm noted. Telemetry showed atrial flutter with a BBB. He denied nausea and tolerated a regular soft diet with nectar thickened liquids without difficulty. He was up to the chair and BS with SBA, belt and walker and tolerated it fairly well. Discharge education was provided including diagnosis info, medications, symptoms to report and follow up plan. All questions answered and SL was removed with tip intact.
== END 2022-03-01 14:40 | disposition home health service (06) | DRG 177 ==
LOC: ED 20:57 → MEDSURG 02-23 10:47
PROVIDERS: Family Medicine; Internal Medicine; Admitting Provider Family Medicine; Emergency Provider Emergency Medicine Emergency Medical Services; PCP Family Medicine; Visit Provider Family Medicine
DX: J69.0 Pneumonitis due to inhalation of food and vomit (principal); I26.99 Other pulmonary embolism without acute cor pulmonale; I48.92 Unspecified atrial flutter; I82.412 Acute embolism and thrombosis of left femoral vein; J91.8 Pleural effusion in other conditions classified elsewhere; K52.1 Toxic gastroenteritis and colitis; T36.95XA Adverse effect of unspecified systemic antibiotic, initial encounter; R21 Rash and other nonspecific skin eruption; R13.10 Dysphagia, unspecified; I95.9 Hypotension, unspecified; G20 Parkinson's disease; I44.7 Left bundle-branch block, unspecified; I10 Essential (primary) hypertension; E78.5 Hyperlipidemia, unspecified; Z87.891 Personal history of nicotine dependence; Z86.718 Personal history of other venous thrombosis and embolism; Z85.3 Personal history of malignant neoplasm of breast; Z85.819 Personal history of malignant neoplasm of unspecified site of lip, oral cavity, and pharynx
CPT/HCPCS: 36415; 36600; 51702; 71045; 71046; 71260; 80048; 80053; 81001; 82330; 82803; 83605; 83735; 83880; 84145; 84484; 85025; 85027; 85610; 85651; 85730; 86140; 87040; 87086; 87493; 87631; 87635; 92610; 93005; 93306; 93970; 94640; 94664; 97110; 97116; 97162; 97165; 97530; 97535; 99285; A9270; G0378; J0456; J0696; J1644; J1650; J2543; J7030; J7050; J7120; Q9967

== ENCOUNTER 2022-03-31 08:55 | Outpatient (CLI) | payer MEDICARE, SELFPAY ==
--- NOTE | 2022-03-31 09:15 | CRLHL7_ITS ---
For Patients: As a result of the Century Cures Act, medical imaging exams and procedure reports are released immediately into your electronic medical record. You may view this report before your referring provider. If you have questions, please contact your health care provider. INDICATION: Difficulty swallowing TECHNIQUE: Modified barium swallow. Fluoroscopic time 2 minutes 51 seconds. COMPARISON: None FINDINGS/IMPRESSION: Delayed initiation of swallow. Deep laryngeal penetration occurred with thin barium with possible slight silent aspiration. Mild penetration occurred with nectar thick barium. No obstruction to the flow of barium. No penetration with thick barium. Dictated by Francisco Castaneda MD @ 03/31/2022 9:57:12 AM (Electronically Signed)
== END 2022-03-31 08:56 | disposition home or self-care (01) ==
LOC: RAD 08:58
PROVIDERS: PCP Family Medicine; Visit Provider Nurse Practitioner Gerontology
DX: R13.10 Dysphagia, unspecified (principal)
CPT/HCPCS: 74230; 92611

== ENCOUNTER 2022-04-30 15:19 | Outpatient (RCR) | payer MEDICARE, SELFPAY ==
[2022-04-28 16:04] VITALS: BP 135/90; PULSE 85; RESP 18; TEMP 36.1; O2SAT 97
[2022-04-28 18:10] VITALS: BP 167/90; PULSE 88; RESP 18; TEMP 36.8; O2SAT 100
[2022-04-29 16:16] VITALS: BP 115/78; PULSE 84; RESP 18; TEMP 36.5; O2SAT 95
--- NOTE | 2022-04-29 18:36 | PC.NURSE ---
Pt. tolerated infusion #2 well. VSS. Afebrile. IV in left arm intact and patent, covered w/cobain. Left Arm Restriction per pt. Accompanied by daughter.
[2022-04-30 15:39] VITALS: BP 111/86; PULSE 88; RESP 18; TEMP 36.4; O2SAT 99
--- NOTE | 2022-04-30 18:22 | PC.NURSE ---
Pt. alert, pleasant and cooperative. Pt. tolerated infusion #3 well. VSS. Afebrile. IV in left arm removed and intact. Pt. accompanied back to [facility] by dtrs.
== END 2022-04-30 17:30 | disposition home or self-care (01) ==
LOC: MS OUT 15:19
PROVIDERS: PCP Family Medicine; Visit Provider Family Medicine
DX: R50.9 Fever, unspecified (principal)
CPT/HCPCS: 96365; 99211; J7050

== ENCOUNTER 2022-05-21 11:25 | Observation (INO) | payer MEDICARE, SELFPAY ==
[2022-05-21] VITALS (21 sets, daily range): BP systolic 98–145; BP diastolic 59–85; PULSE 38–86; RESP 18–20; TEMP 36.4–36.8; O2SAT 90–100; BMI 24.4
--- NOTE | 2022-05-21 11:34 | CRLHL7_ITS ---
For Patients: As a result of the Century Cures Act, medical imaging exams and procedure reports are released immediately into your electronic medical record. You may view this report before your referring provider. If you have questions, please contact your health care provider. INDICATION: Fall, history of dementia TECHNIQUE: CT head without contrast. COMPARISON: None. FINDINGS: CSF spaces: Slight intermediate density thickening at the level of the anterior aspect of the falx measuring 2 millimeters (series 2, image 28). No mass effect. Brain parenchyma: Vitale-white differentiation is distinct. Mild cerebral atrophy. Skull base and calvarium: The visualized paranasal sinuses and mastoid air cells demonstrate no acute or significant findings. The visualized orbits are grossly unremarkable. No skull fractures. Atherosclerosis. Left supraorbital scalp hematoma. IMPRESSION: 1. Intermediate density thickening of the anterior falx measuring 2 millimeters, likely a small subdural hematoma. No significant mass effect. 2. Left supraorbital scalp hematoma without calvarial fracture. 3. Mild cerebral atrophy. Results called to Dr. Arroyo at 1234 on 05/21/2022 Please note that all CT scans at this facility use dose modulation, iterative reconstruction, and/or weight-based dosing when appropriate to reduce radiation dose to as low as reasonably achievable. Dictated by Aime Yan MD @ 05/21/2022 12:37:14 PM (Electronically Signed)
--- NOTE | 2022-05-21 11:34 | ED.NURSE ---
Imaging notified of STAT Head CT, verbal order from .
--- NOTE | 2022-05-21 11:38 | ED.NURSE ---
Pt to CT.
--- NOTE | 2022-05-21 11:39 | ED.NURSE ---
Pressure dressing applied to bleeding lac on L eyebrow.
[2022-05-21 12:14] LABS: HCO3 VBG 32 mmol/L (21-28); Lactate* 1.4 mmol/L (0.5-1.9); PCO2 VBG 56 mmHG (40-50); PO2 VBG 34.2 mmHG (25-47); pH VBG 7.363 (7.32-7.43)
[2022-05-21 12:18] LABS: Basophils Absolute Auto 0.01 K/uL (0.00-0.30); Basophils Percent Auto 0.1 % (0.0-3.0); Eosinophils Absolute Auto 0.11 K/uL (0.00-0.50); Eosinophils Percent Auto 1.4 % (0.0-7.0); Hematocrit 38.3 % (37.0-53.0); Hemoglobin* 12.6 gm/dL (13.5-17.5); Immature Granulocytes Abs Auto 0.02 K/uL (0.00-0.30); Immature Granulocytes Pct Auto 0.3 %; Lymphocytes Percent Auto 8.2 % (20-44); Mean Corpuscular HGB Conc 33 gm/dL (32-36); Mean Corpuscular Hemoglobin 30 pg (26-34); Mean Corpuscular Volume 92 fL (80-100); Monocytes Percent Auto 7.3 % (0.0-11.0); Neutrophils Percent Auto 82.7 % (42.0-72.0); Platelet Count* 204 K/uL (140-440); RDW Coefficient of Variation % 15.6 % (11.5-15.5); Red Blood Count 4.17 m/uL (4.30-5.90); White Blood Count* 7.83 K/uL (4.50-11.00)
[2022-05-21] MEDS: 0.9 % SODIUM CHLORIDE 500 ML 500 ML IV (12:26)
[2022-05-21 12:32] LABS: Slide Review Reflex No
[2022-05-21 12:34] LABS: Albumin* 3.6 g/dL (3.3-5.0)
[2022-05-21 12:35] LABS: Chloride* 105 mmol/L (96-114); Sodium* 139 mmol/L (135-149)
[2022-05-21 12:37] LABS: Aspartate Amino Transferase* 21 U/L (12-35); Bilirubin Total* 1.7 mg/dL (0.1-1.5); Total Protein* 6.4 g/dL (6.0-8.3)
[2022-05-21 12:38] LABS: Alanine Aminotransferase* 13 U/L (4-50); Alkaline Phosphatase* 66 U/L (40-150); Carbon Dioxide* 29 mmol/L (20-32); Creatinine* 0.8 mg/dL (0.5-1.5); Estimated Glomerular Filt Rate 90 ml/min
[2022-05-21 12:39] LABS: Blood Urea Nitrogen* 24 mg/dL (7-30); Calcium* 8.7 mg/dL (8.4-10.6); Glucose* 118 mg/dL (60-115)
[2022-05-21 12:42] LABS: C Reactive Protein* 4.3 mg/dL (0.5-1.0)
[2022-05-21 12:53] LABS: NT Pro B Type NatriureticPept* 1470 pg/mL
--- NOTE | 2022-05-21 13:15 | ED.NURSE ---
Head wound cleansed with water and hibiclens. Patient alert and orientated x4 with no neuro deficits noted.
--- NOTE | 2022-05-21 13:40 | CRLHL7_ITS ---
For Patients: As a result of the Cures Act, medical imaging exams and procedure reports are released immediately into your electronic medical record. You may view this report before your referring provider. If you have questions, please contact your health care provider. Indication: Injury Technique: Three views Comparison: None Findings: Bones: Osteopenia without evidence of fracture. Joint spaces: Unremarkable. Soft tissues: Unremarkable. Dictated by Aime Yan MD @ 05/21/2022 4:04:16 PM (Electronically Signed)
[2022-05-21 13:54] LABS: PCR FLU A Negative PCR FLU A (Negative); PCR FLU B Negative PCR FLU B (Negative); PCR RSV Negative PCR RSV (Negative)
--- NOTE | 2022-05-21 14:30 | ED.NURSE ---
report given to med surg.
--- NOTE | 2022-05-21 14:32 | P.IMHP_ITS ---
Hospitalist- H&P: HPI History of Present Illness Date Seen: 05/21/22 Chief complaint: Fell, hit head bleeding Narrative: ADMISSION HISTORY AND PHYSICAL - HOSPITALIST Chief Complaint: I fell, I think I was dizzy before it happened. HPI: Kevin 77-year-old who fell this morning in the parking lot of his assisted living. [place], across the street, is where he and his , ROLDAN, live. He is on Xarelto for a PE DVT diagnosed in February when he was on our service. He states he was feeling fine but then noticed as he was approaching his vehicle, he felt dizzy and the next thing he knew he fell. He is complaining of left shoulder pain and he knew he was bleeding from his left eyebrow. He was able to get up and walk back into the building. Staff there then sat him down and assessed him. His daughter came and picked him up and took him to our emergency room. There was no suspected loss of consciousness. Trauma team activation was completed in the ED. There has been no vomiting or vertigo noted since arrival. In the ED: Upon arrival he was noted to be bradycardic with a flutter. There were defibrillator pads placed. No Defibrillation or cardioversion was done. Head CT showed a small 2 mm subdural. No mass effect. He had approximately a 4 cm laceration above his left eye. No orbital trauma. Was sutured with good effect in the ED. He has full range of motion of his left shoulder, x-rays pending Hospital medicine team was asked to evaluate, repeat imaging and manage his bradycardia I've updated the PFSH, medications and allergies in the [facility] tabs. INVESTIGATIONS: LABS/MICRO/ECG/IMAGING Blood pressure 1 18-105 systolic over 60s Afebrile Pulse high 40s to 52 Respiratory rate 20 Pulse ox 90s , room air weight 91 kilos CBC is unremarkable from his baseline. No significant leukocytosis, hemoglobins up to 12.6, platelet count 204 INR 1.62 Troponin 0 PH 7.36, mild bump in his CO2 at 56 Basic chemistries are unremarkable. There is normal renal function. Glucose 118. Total bili is up a little bit 1.7 with normal AST, ALT, alk-phos C reactive protein 4.3 BNP 1470 which is down from 5000 in February Normal TSH Respiratory panel negative Head CT 1. Intermediate density thickening of the anterior falx measuring 2 millimeters, likely a small subdural hematoma. No significant mass effect. 2. Left supraorbital scalp hematoma without calvarial fracture. 3. Mild cerebral atrophy. REVIEW OF SYSTEMS: 12-point ROS completed with patient and negative unless otherwise stated in HPI or below. PHYSICAL EXAM: CODE STATUS: DNR/DNI CONSTITUTIONAL: Conversive, good historian. A/O. Knows setting and context. VITAL SIGNS: see record. HEENT: Normocephalic, atraumatic. PERRL, EOMI, conjunctivae pink, no scleral icterus. Ears and nose externally normal. Pharynx normal. NECK: No JVD. No carotid bruit, no thyromegaly, no adenopathy. CHEST: Clear to auscultation bilaterally HEART: S1 and S2 normal. No harsh murmurs. Edema MUSCULOSKELETAL: No gross joint deformity or swelling. NEURO: Cranial nerves intact. Grossly intact. No asymmetric findings. SKIN: No rashes, petechiae, concerning changes PSYCHIATRIC: Euthymic. ADMIT TO MEDSURG: FLOOR CARE DVT: SCDs GI: PO intake, ppi Time spent: 70 minutes examining patient, conferring with family and patient, care staff, developing care plan PFSH PFSH Medical History Atrial flutter with rapid ventricular response Community acquired pneumonia DVT of leg (deep venous thrombosis) Dysphagia History of breast cancer in male History of DVT (deep vein thrombosis) History of paroxysmal supraventricular tachycardia History of pulmonary embolism Hyperlipidemia Hypertension Parkinsons Pleural effusion Smoking greater than 40 pack years Surgical History H/O cardiac radiofrequency ablation H/O hemorrhoidectomy History of bilateral knee replacement History of mastectomy Social History Narrative: 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 Previously heavy smoker. Lives across the street at [facility]. Smoking Status: Former smoker How often do you have a drink containing alcohol: 2-3 times a week AUDIT-C Alcohol total score: 3 Meds Home Medications and Allergies Home Medications Medication Instructions Recorded Confirmed Type carbidopa 25 mg-levodopa 100 mg 1 tab PO TID 02/22/22 05/21/22 History tablet rivaroxaban 15 mg tablet (Xarelto) 15 mg PO Q24H 05/21/22 05/21/22 History Allergies Allergy/AdvReac Type Severity Reaction Status Date / Time No Known Drug Allergies Allergy Verified 02/22/22 17:41 Exam Const: Vital Signs, click to edit/add: Vital Signs - 24 hr 05/21/22 11:39 05/21/22 12:06 05/21/22 12:45 Temperature 98.2 F Pulse Rate 49 L Pulse Rate [Left P ulse Oximeter] 45 L Respiratory Rate 20 Blood Pressure 98/63 Blood Pressure [Ri ght Upper Arm] 112/59 L Pulse Oximetry 97 98 98 Oxygen Delivery [facility] Room Air 05/21/22 12:46 05/21/22 12:52 05/21/22 13:00 Temperature Pulse Rate 47 L 38 L 40 L Pulse Rate [Left P ulse Oximeter] Respiratory Rate Blood Pressure 108/85 Blood Pressure [Ri ght Upper Arm] Pulse Oximetry 93 99 99 Oxygen Delivery [facility] 05/21/22 13:02 05/21/22 13:13 05/21/22 13:14 Temperature Pulse Rate 46 L 49 L 55 L Pulse Rate [Left P ulse Oximeter] Respiratory Rate Blood Pressure 102/68 112/68 Blood Pressure [Ri ght Upper Arm] Pulse Oximetry 99 90 98 Oxygen Delivery [facility] 05/21/22 13:15 05/21/22 13:22 05/21/22 13:30 Temperature Pulse Rate 45 L 50 L 43 L Pulse Rate [Left P ulse Oximeter] Respiratory Rate Blood Pressure 118/61 Blood Pressure [Ri ght Upper Arm] Pulse Oximetry 100 99 98 Oxygen Delivery [facility] 05/21/22 13:31 05/21/22 13:42 05/21/22 13:45 Temperature Pulse Rate 43 L 52 L 48 L Pulse Rate [Left P ulse Oximeter] Respiratory Rate Blood Pressure 103/68 105/65 Blood Pressure [Ri ght Upper Arm] Pulse Oximetry 98 91 97 Oxygen Delivery [facility] Hospitalist - H&P: Result Labs Labs: Short CBC 05/21/22 Range/Units 11:50 WBC 7.83 (4.50-11.00) K/uL Hgb 12.6 L (13.5-17.5) gm/dL Hct 38.3 (37.0-53.0) % Plt Count 204 (140-440) K/uL BMP 05/21/22 11:50 Sodium 139 Potassium 4.0 Chloride 105 Carbon Dioxide 29 BUN 24 Creatinine 0.8 Glucose 118 H Calcium 8.7 Liver Function 05/21/22 Range/Units 11:50 Total Bilirubin 1.7 H (0.1-1.5) mg/dL Direct Bilirubin 0.0 (0.0-0.5) mg/dL AST 21 (12-35) U/L ALT 13 (4-50) U/L Alkaline Phosphatase 66 (40-150) U/L Albumin 3.6 (3.3-5.0) g/dL Assessment and Plan Assessment and plan (1) Fall: Problem comment: Date of injury, morning of 05/21/2022. Subdural hemorrhage, small. Small laceration to the left eyebrow. Status: Acute (2) Laceration: Problem comment: Repaired beautifully in the emergency room, metastatic Status: Acute (3) Subdural hemorrhage: Problem comment: 2 mm. Will repeat at 10:00 p.m. tonight. Status: Acute (4) Bradycardia: Problem comment: Holding current antihypertensives. Serial EKGs and telemetry. May need is Zio patch on discharge. Status: Acute (5) Parkinsons: Problem comment: Moderate. Mild rigidity and masked expression. Status: Acute (6) Atrial flutter: Problem comment: As in #4. Status: Acute (7) History of pulmonary embolism: Problem comment: 03/06. On Xarelto. Status: Acute (8) History of DVT (deep vein thrombosis): Problem comment: 03/06. On Xarelto. Status: Acute (9) Chronic anticoagulation: Status: Acute
--- NOTE | 2022-05-21 15:44 | ED_ITS ---
HPI - General Adult General Date Seen: 05/21/22 Chief complaint: Fall/Minor Trauma Stated complaint: Fell, hit head bleeding Time Seen by Provider: 05/21/22 12:04 Source: patient, family, RN notes reviewed and old records reviewed Mode of arrival: wheelchair History of Present Illness HPI narrative: Patient is 77-year-old brought in after a fall at his care facility. He was reportedly outside when he fell, and was by himself. He was able to get up after he fell, though he does not know whether he might have lost consciousness. Someone saw that he had fallen and he was brought into the ER. He complains of some pain by his head where he fell. He denies neck pain. He does have some pain in his left shoulder but says that that is chronic. Maybe a little bit worse after his fall but it is not clear to me that he injured that during the fall. He denies nausea, denies chest pain or difficulty breathing. He does take Xarelto. Was seen initially in triage, as we did not have any available beds in the ER, and a CT was ordered. Then he was noted to be somewhat bradycardic, his daughter felt that he was answering questions a little more slowly than normal so he was brought back to [facility]. In my conversation with him, he was answering questions appropriately. Does seem a little bit hard of hearing. Answers to questions are appropriate albeit a little bit slow to come. Related Data Home Medications Medication Instructions Recorded Confirmed carbidopa 25 mg-levodopa 100 mg 1 tab PO TID 02/22/22 05/21/22 tablet rivaroxaban 15 mg tablet (Xarelto) 15 mg PO Q24H 05/21/22 05/21/22 Previous Rx's Medication Instructions Recorded diltiazem HCl 60 mg 60 mg PO BID #60 caps 03/01/22 capsule,extended release 12 hr metoprolol tartrate 50 mg tablet 75 mg PO BID #90 tabs 03/01/22 triamcinolone acetonide 0.1 % 1 applic topical BID #15 grams 03/01/22 topical cream Allergies Allergy/AdvReac Type Severity Reaction Status Date / Time No Known Drug Allergies Allergy Verified 02/22/22 17:41 Review of Systems Status of ROS: Reports: 10 or more systems reviewed and unremarkable except as noted in History and below PFSH PFSH Medical History Atrial flutter with rapid ventricular response Community acquired pneumonia DVT of leg (deep venous thrombosis) Dysphagia History of breast cancer in male History of DVT (deep vein thrombosis) History of paroxysmal supraventricular tachycardia History of pulmonary embolism Hyperlipidemia Hypertension Parkinsons Pleural effusion Smoking greater than 40 pack years Surgical History H/O cardiac radiofrequency ablation H/O hemorrhoidectomy History of bilateral knee replacement History of mastectomy Social History 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 Lives across the street at [facility]. Highest level of school completed/degree received: high school graduate Smoking Status: Former smoker How often do you have a drink containing alcohol: 2-3 times a week AUDIT-C Alcohol total score: 3 Caffeine: Yes service: No Exam Narrative: Exam Narrative: Vital signs as noted above. In general, an alert, nontoxic elderly male. Head: Normocephalic. On the left, he has a hematoma and associated laceration by left eyebrow. Bruising around the left eye. Eyes: Pupils are equal reactive. Extraocular movements are full. Conjunctivae are normal. ENT: Mucous membranes are moist. Throat is normal. No other facial trauma. Neck: Supple without lymphadenopathy. Nontender to palpation. Heart: Bradycardic, irregular. No obvious murmur. Lungs: Clear bilaterally. No increased work of breathing, crackles or wheezes. Abdomen: Soft and nontender. No organomegaly. Extremities: Well perfused. No edema. No calf tenderness. Pulses intact. He complains of some pain in the left shoulder, there is no obvious tenderness, no deformity. He is able to range the left shoulder with minimal pain. Neurologic: Patient is alert and oriented to person and place. Speech is fluent though somewhat slow and methodical. Face is symmetric. Moves all extremities equally, follows commands. Affect: Normal. Skin: Warm and dry. Well perfused. Const: Vital Signs, click to edit/add: Vital Signs - 24 hr 05/21/22 11:39 05/21/22 12:06 05/21/22 12:45 Temperature 98.2 F Pulse Rate 49 L Pulse Rate [Left P ulse Oximeter] 45 L Respiratory Rate 20 Blood Pressure 98/63 Blood Pressure [Ri ght Upper Arm] 112/59 L Pulse Oximetry 97 98 98 Oxygen Delivery [facility] Room Air 05/21/22 12:46 05/21/22 12:52 05/21/22 13:00 Temperature Pulse Rate 47 L 38 L 40 L Pulse Rate [Left P ulse Oximeter] Respiratory Rate Blood Pressure 108/85 Blood Pressure [Ri ght Upper Arm] Pulse Oximetry 93 99 99 Oxygen Delivery Me [facility] 05/21/22 13:02 05/21/22 13:13 05/21/22 13:14 Temperature Pulse Rate 46 L 49 L 55 L Pulse Rate [Left P ulse Oximeter] Respiratory Rate Blood Pressure 102/68 112/68 Blood Pressure [Ri ght Upper Arm] Pulse Oximetry 99 90 98 Oxygen Delivery Me thod 05/21/22 13:15 05/21/22 13:22 05/21/22 13:30 Temperature Pulse Rate 45 L 50 L 43 L Pulse Rate [Left P ulse Oximeter] Respiratory Rate Blood Pressure 118/61 Blood Pressure [Ri ght Upper Arm] Pulse Oximetry 100 99 98 Oxygen Delivery Me thod 05/21/22 13:31 05/21/22 13:42 05/21/22 13:45 Temperature Pulse Rate 43 L 52 L 48 L Pulse Rate [Left P ulse Oximeter] Respiratory Rate Blood Pressure 103/68 105/65 Blood Pressure [Ri ght Upper Arm] Pulse Oximetry 98 91 97 Oxygen Delivery Me thod Documenting provider has reviewed patient's vital signs: yes Course Reevaluation(s) Reevaluation #1: Patient went over to CT scan prior to my initial evaluation. I reviewed his records, noted him to be DNR DNI. We did place pacer pads however. His EKG showed him to be in atrial flutter with a variable block. His heart rate ranged from the mid 40s to about 60, but his blood pressures were always in the 1 teens systolic. He seems to tolerate that rate without difficulty. Review of his records does show that he is on metoprolol 75 mg b.i.d. as well as diltiazem, so I do think that there is room to hold his medications and improve his rate. CT scan of the head shows a very tiny amount of subdural blood along the falx. He has a lot of volume loss, there is no evidence of any kind of edema or midline shift. He was neurologically stable while here in the emergency department. He will need a repeat CT scan to make sure this is stable. However, given his code status, and the very tiny amount of blood, I do not think there is anything more emergent to do for this. His Xarelto obviously will be held; will discuss with hospitalist initiation of Kcentra. Labs are fairly unremarkable, white count 7.8, hemoglobin 12.6. Gas showed a pH of 7.36. Metabolic panel was entirely within normal limits, blood sugar was 118. LFTs relatively unremarkable, total bilirubin was mildly elevated at 1.7. CRP mildly elevated at 4.3. TSH was normal. COVID negative. Point of care troponin was 0. His fall sounds to have been a loss of balance rather than a syncopal episode. Procedure note: The wound on his forehead was cleaned by the freezer laboratory technician, anesthetized using lidocaine with epinephrine and closed using 5 0 nylon with a total of 6 superficial simple interrupted sutures. He tolerated this well without complication. Dressing is applied by the tech. Suture should be removed in 5-7 days. He does have a significant hematoma in this area which somewhat increases risk of infection. Should be seen again for any signs of infection such as increasing redness, swelling, pain or purulence. I did do an x-ray of the left shoulder, I do not see anything acute terms of fracture, dislocation. Final radiology report is likewise negative. Patient was neurologically stable while here. Remained bradycardic but with stable blood pressures. Vital Signs Vital signs: Initial Vital Signs Temperature 98.2 F 05/21/22 11:39 Temperature Source Temporal Artery Scan 05/21/22 11:39 Pulse Rate 45 L 05/21/22 11:39 Pulse Rhythm 05/21/22 11:39 Respiratory Rate 20 05/21/22 11:39 Blood Pressure 112/59 L 05/21/22 11:39 Blood Pressure Mean 76 05/21/22 11:39 Blood Pressure Position Supine 05/21/22 11:39 Pulse Oximetry 97 05/21/22 11:39 Oxygen Delivery Method 05/21/22 11:39 Vital Signs Temperature 98.2 F 05/21/22 11:39 Pulse Rate 45 L 05/21/22 11:39 Respiratory Rate 20 05/21/22 11:39 Blood Pressure 112/59 L 05/21/22 11:39 Pulse Oximetry 97 05/21/22 11:39 Oxygen Delivery Method 05/21/22 11:39 Temperature 98.1 F 05/21/22 16:00 Pulse Rate 61 05/21/22 16:00 Respiratory Rate 20 05/21/22 16:00 Blood Pressure 144/72 H 05/21/22 16:00 Pulse Oximetry 97 05/21/22 16:00 Oxygen Delivery Method 05/21/22 16:00 Medical Decision Making Lab Data Labs: Lab Results 05/21/22 05/21/22 05/21/22 Range/Units 11:50 11:50 11:50 WBC 7.83 (4.50-11.00) K/uL RBC 4.17 L (4.30-5.90) m/uL Hgb 12.6 L (13.5-17.5) gm/dL Hct 38.3 (37.0-53.0) % MCV 92 (80-100) fL MCH 30 (26-34) pg MCHC 33 (32-36) gm/dL RDW Coeff of [place] 15.6 H (11.5-15.5) % Plt Count 204 (140-440) K/uL Neut % (Auto) 82.7 H (42.0-72.0) % Lymph % (Auto) 8.2 L (20-44) % [place] % (Auto) 7.3 (0.0-11.0) % Eos % (Auto) 1.4 (0.0-7.0) % Baso % (Auto) 0.1 (0.0-3.0) % Neut # (Auto) 6.50 (1.7-7.0) K/uL Lymph # (Auto) 0.60 L (0.90-2.90) K/uL [place] # (Auto) 0.60 (0.00-0.90) K/UL Eos # (Auto) 0.11 (0.00-0.50) K/uL Baso # (Auto) 0.01 (0.00-0.30) K/uL VBG pH (7.32-7.43) VBG pCO2 (40-50) mmHG VBG pO2 (25-47) mmHG VBG HCO3 (21-28) mmol/L Sodium 139 (135-149) mmol/L Potassium 4.0 (3.6-5.1) mmol/L Chloride 105 (96-114) mmol/L Carbon Dioxide 29 (20-32) mmol/L BUN 24 (7-30) mg/dL Creatinine 0.8 (0.5-1.5) mg/dL Estimated GFR 90 ml/min Glucose 118 H (60-115) mg/dL Lactate (0.5-1.9) mmol/L Calcium 8.7 (8.4-10.6) mg/dL Total Bilirubin 1.7 H (0.1-1.5) mg/dL Direct Bilirubin 0.0 (0.0-0.5) mg/dL AST 21 (12-35) U/L ALT 13 (4-50) U/L Alkaline Phosphatase 66 (40-150) U/L C-Reactive Protein 4.3 H (0.5-1.0) mg/dL NT-Pro-B Natriuret Pep 1470 pg/mL Total Protein 6.4 (6.0-8.3) g/dL Albumin 3.6 (3.3-5.0) g/dL TSH (0.270-4.200) uIU/mL SARS-CoV-2 (PCR) (Negative) Influenza Type A (PCR) (Negative) Influenza Type B (PCR) (Negative) RSV (PCR) (Negative) POC Troponin I (0.01-0.04) ng/ml 05/21/22 05/21/22 05/21/22 Range/Units 11:50 11:50 11:50 WBC (4.50-11.00) K/uL RBC (4.30-5.90) m/uL Hgb (13.5-17.5) gm/dL Hct (37.0-53.0) % MCV (80-100) fL MCH (26-34) pg MCHC (32-36) gm/dL RDW Coeff of [place] (11.5-15.5) % Plt Count (140-440) K/uL Neut % (Auto) (42.0-72.0) % Lymph % (Auto) (20-44) % [place] % (Auto) (0.0-11.0) % Eos % (Auto) (0.0-7.0) % Baso % (Auto) (0.0-3.0) % Neut # (Auto) (1.7-7.0) K/uL Lymph # (Auto) (0.90-2.90) K/uL [place] # (Auto) (0.00-0.90) K/UL Eos # (Auto) (0.00-0.50) K/uL Baso # (Auto) (0.00-0.30) K/uL VBG pH 7.363 (7.32-7.43) VBG pCO2 56 H (40-50) mmHG VBG pO2 34.2 (25-47) mmHG VBG HCO3 32 H (21-28) mmol/L Sodium (135-149) mmol/L Potassium (3.6-5.1) mmol/L Chloride (96-114) mmol/L Carbon Dioxide (20-32) mmol/L BUN (7-30) mg/dL Creatinine (0.5-1.5) mg/dL Estimated GFR ml/min Glucose (60-115) mg/dL Lactate 1.4 (0.5-1.9) mmol/L Calcium (8.4-10.6) mg/dL Total Bilirubin (0.1-1.5) mg/dL Direct Bilirubin (0.0-0.5) mg/dL AST (12-35) U/L ALT (4-50) U/L Alkaline Phosphatase (40-150) U/L C-Reactive Protein (0.5-1.0) mg/dL NT-Pro-B Natriuret Pep pg/mL Total Protein (6.0-8.3) g/dL Albumin (3.3-5.0) g/dL TSH 3.940 (0.270-4.200) uIU/mL SARS-CoV-2 (PCR) (Negative) Influenza Type A (PCR) (Negative) Influenza Type B (PCR) (Negative) RSV (PCR) (Negative) POC Troponin I 0.00 L (0.01-0.04) ng/ml 05/21/22 Range/Units 12:06 WBC (4.50-11.00) K/uL RBC (4.30-5.90) m/uL Hgb (13.5-17.5) gm/dL Hct (37.0-53.0) % MCV (80-100) fL MCH (26-34) pg MCHC (32-36) gm/dL RDW Coeff of [place] (11.5-15.5) % Plt Count (140-440) K/uL Neut % (Auto) (42.0-72.0) % Lymph % (Auto) (20-44) % [place] % (Auto) (0.0-11.0) % Eos % (Auto) (0.0-7.0) % Baso % (Auto) (0.0-3.0) % Neut # (Auto) (1.7-7.0) K/uL Lymph # (Auto) (0.90-2.90) K/uL [place] # (Auto) (0.00-0.90) K/UL Eos # (Auto) (0.00-0.50) K/uL Baso # (Auto) (0.00-0.30) K/uL VBG pH (7.32-7.43) VBG pCO2 (40-50) mmHG VBG pO2 (25-47) mmHG VBG HCO3 (21-28) mmol/L Sodium (135-149) mmol/L Potassium (3.6-5.1) mmol/L Chloride (96-114) mmol/L Carbon Dioxide (20-32) mmol/L BUN (7-30) mg/dL Creatinine (0.5-1.5) mg/dL Estimated GFR ml/min Glucose (60-115) mg/dL Lactate (0.5-1.9) mmol/L Calcium (8.4-10.6) mg/dL Total Bilirubin (0.1-1.5) mg/dL Direct Bilirubin (0.0-0.5) mg/dL AST (12-35) U/L ALT (4-50) U/L Alkaline Phosphatase (40-150) U/L C-Reactive Protein (0.5-1.0) mg/dL NT-Pro-B Natriuret Pep pg/mL Total Protein (6.0-8.3) g/dL Albumin (3.3-5.0) g/dL TSH (0.270-4.200) uIU/mL SARS-CoV-2 (PCR) Negative SARS-CoV-2 (Negative) Influenza Type A (PCR) Negative PCR FLU A (Negative) Influenza Type B (PCR) Negative PCR FLU B (Negative) RSV (PCR) Negative PCR RSV (Negative) POC Troponin I (0.01-0.04) ng/ml
--- NOTE | 2022-05-21 15:46 | PC.NURSE ---
Nursing Care Hours: [id number] Pt arrived from ED to floor at 1430 via wheelchair. Pt able to transfer self in and out of chair, walked with SB assist to bathroom to void. Reported having BM two days ago but does deal with constipation. Pt has medium size hematoma to L eyebrow, sutures done in ED. Bandaid removed and non stick gauze applied with Krilex wrap to hold in place. VSS, pulse 57 and LS clear. Pt alert and oriented, fidgety in bed but denies having restless leg syndrome. Reporting pain to L shoulder 9/10 with coughing but able to perform total ROM without wincing or signs of pain.
[2022-05-21] MEDS: PANTOPRAZOLE SODIUM 40 MG INJ IVP (18:04)
--- NOTE | 2022-05-21 18:15 | PM.EN ---
Chart Event Note Time Seen by Provider: 18:00 Date Seen: 05/21/22 Chart Event Note: Kevin's head lac continued to ooze despite: 1. ER eval with sutures and bandaide 2. My eval and placing tefla and kerlix around his head I evaluate the wound it is oozing along the suture line. I used silver nitrate sticks that assisted the coagulation I then placed a surgifoam on top of the wound, absorbant pad and then coban with a slight snug/tug to hold the foam/pad in place he was coherent and cooperative thoroughout
--- NOTE | 2022-05-21 19:14 | PC.NURSE ---
Shift note: Pt was dressing was soaked with blood. Dressing changed and pressure applied at 1600. At 1730, medical underwriter observed that dressing was soaked again. notified. applied pressure and used silver nitrate to arrest bleeding. Dressing was re-enforced with Coban. Telemetry reading was Ingris Ibrahim.
[2022-05-21 19:15] LABS: SARS PCR* Negative SARS-CoV-2 (Negative)
[2022-05-21] MEDS: CARBIDOPA-LEVODOPA 25-100 TABLET 1 TAB PO (21:27)
[2022-05-21] MEDS: SODIUM CHLORIDE 0.9 % (FLUSH) 10 ML SYRINGE 5 ML IVF (21:29)
--- NOTE | 2022-05-21 22:00 | CRLHL7_ITS ---
For Patients: As a result of the Century Cures Act, medical imaging exams and procedure reports are released immediately into your electronic medical record. You may view this report before your referring provider. If you have questions, please contact your health care provider. INDICATION: Intracranial hemorrhage TECHNIQUE: Head CT without contrast. COMPARISON: Same date at 11:43 a.m. FINDINGS: CSF spaces: Within normal limits for age. Brain parenchyma: There are nonspecific low attenuation white matter changes consistent with chronic microvascular disease. Unchanged appearance of likely subacute subdural hematoma along the anterior falx, best seen on image 30 series 2 is serious 6 mm in maximum diameter. No sign of mass or midline shift. Skull base and calvarium: The visualized paranasal sinuses and mastoid air cells demonstrate no acute or significant findings. The visualized orbits are grossly unremarkable. No skull fractures. There is intracranial atherosclerosis. Left periorbital soft tissue swelling. IMPRESSION: Likely small, subacute anterior parafalcine subdural hematoma, stable. Left periorbital soft tissue swelling. Please note that all CT scans at this facility use dose modulation, iterative reconstruction, and/or weight-based dosing when appropriate to reduce radiation dose to as low as reasonably achievable. Dictated by Aminta Martin MD @ 05/21/2022 10:19:04 PM (Electronically Signed)
[2022-05-22] VITALS (9 sets, daily range): BP systolic 117–150; BP diastolic 66–91; PULSE 66–89; RESP 18; TEMP 36.6–36.9; O2SAT 94–97
--- NOTE | 2022-05-22 07:17 | PC.NURSE ---
VSS on RA. Patient is alert and oriented with some confusion. Dressing above the l) eye was reinforced x3. Pt denies pain. Requires assist of one with transfers using walker. Up to bathroom x3. Pt does not use call light, bed alarm in place.
[2022-05-22] MEDS: ACETAMINOPHEN 325 MG TABLET PO (07:27)
--- NOTE | 2022-05-22 09:31 | PM.IMPN1 ---
Progress Note: A&P Assessment and plan (1) Fall: Problem details: Date of injury, morning of 05/21/2022. Subdural hemorrhage, small. Small laceration to the left eyebrow. Status: Acute (2) Subdural hemorrhage: Problem details: 2 mm. Stable on repeat head CT 05/21/22pm Status: Acute (3) Laceration: Status: Acute (4) Atrial flutter: Status: Acute (5) Bradycardia: Problem details: Holding current antihypertensives. Serial EKGs and telemetry. May need is Zio patch on discharge. Status: Acute (6) History of DVT (deep vein thrombosis): Problem details: 03/06. was on xarelto. Status: Acute (7) History of pulmonary embolism: Problem details: 03/06. was on xarelto. Status: Acute (8) Parkinsons: Problem details: Moderate. Mild rigidity and masked expression. Status: Acute (9) Chronic anticoagulation: Status: Acute (10) Left shoulder pain: Status: Acute Plan 77-year-old male on anticoagulation for history of PE and DVT who has been living in assisted living when he when out to the parking lot to get in his car to drive. He does not have a car any longer because he is not supposed to be driving, but for got that this was the case and was confused. In the parking lot he fell hitting the left side of his head. He had 2 subdural hematomas upon the initial head CT which were stable on the 2nd head CT done last night. He has a left forehead contusion and laceration which continues to ooze blood, which is not surprising since he has been on Eliquis. His Eliquis, diltiazem, and metoprolol have been on hold for bleeding and bradycardia, respectively. Heart rate is no longer bradycardic. For atrial flutter, I restarted metoprolol, but continued to hold diltiazem. He was not able to tolerate his usual dose of metoprolol and he became bradycardic again. I have changed it to 25 mg twice a day and will continue to hold diltiazem. He is almost almost 3 months out from PE and DVT and the risk of restarting the Eliquis may be higher than the benefit this time. He will need to discuss this with his primary care provider and to discuss anticoagulation for atrial flutter with his primary care provider or acute care occupational therapist. I spoke with the patient and his daughters today about the possibility of a pacemaker. Initially the patient told me he did not want a pacemaker under any circumstances. His daughters told me that he had been offered a pacemaker about 5-7 years ago and declined at that time, understanding that it was not completely necessary. They would like to discuss amongst themselves about his quality of life at present and whether not they want him to have a pacemaker. They are going to let me know tomorrow. They did secure a place for him in memory care at [facility] which will be ready whenever he is ready for discharge. For losing I placed Surgicel foam dressing to the left forehead laceration and wrapped it with gauze and Coban for pressure dressing. This helped achieve hemostasis and by this afternoon he was no longer bleeding through the bandage. Time Spent With Patient Total time spent: Today I spent 60 minutes rounding on the patient. Greater than 50% included personally bandaging the patient, discussing care with the team, reviewing data, updating and managing the care plan. Subjective Time Seen by Provider: 09:15 Date Seen: 05/22/22 Interval history: Kevin continues to have bleeding from left scalp. No longer dizzy. Denies vision changes or headaches. Denies chest pain or shortness breath. Kevin's 2 daughters, Maya and Rochelle came this afternoon and I spoke with them for 30 minutes about his left forehead laceration, atrial flutter, bradycardia, subdural hematomas, disposition, and left shoulder pain. Exam Narrative: Exam Narrative: General: No acute distress. Awake, alert, oriented x3. No pallor. No jaundice. Left scalp laceration and hematoma with oozing of fresh blood. Bruising noted around left eye. Able to open left eye and vision is intact. Oropharynx: Clear. Mucous membranes moist. Cardiovascular: Irregular. No murmurs, gallops, or rubs. Respiratory: Clear to auscultation bilaterally. No wheezes or crackles. Abdomen: Bowel sounds present. Soft, nondistended, nontender. Extremities: No pedal edema. Neuro: Grossly intact. No focal deficits. Patient stares with little blinking and no eye contact and speech is slow; unchanged from when I saw him during his prior admission. Const: Vital Signs, click to edit/add: Vital Signs - 24 hr 05/21/22 23:00 05/22/22 03:00 05/21/22 11:39 Temperature 98.3 F 98.1 F 98.2 F Pulse Rate Pulse Rate [Left P ulse Oximeter] 86 66 45 L Respiratory Rate 18 18 20 Blood Pressure Blood Pressure [Le ft Arm] 143/82 H 139/79 Blood Pressure [Ri ght Upper Arm] 112/59 L Pulse Oximetry 96 97 97 Oxygen Delivery Ut thod Room Air Room Air Room Air 05/21/22 12:06 05/21/22 12:45 05/21/22 12:46 Temperature Pulse Rate 49 L 47 L Pulse Rate [Left P ulse Oximeter] Respiratory Rate Blood Pressure 98/63 Blood Pressure [Le ft Arm] Blood Pressure [Ri ght Upper Arm] Pulse Oximetry 98 98 [facility] 05/[facility] 12:52 05/21/22 13:00 05/21/22 13:02 Temperature Pulse Rate 38 L 40 L 46 L Pulse Rate [Left P ulse Oximeter] Respiratory Rate Blood Pressure 108/85 102/68 Blood Pressure [Le ft Arm] Blood Pressure [Ri ght Upper Arm] Pulse Oximetry 99 99 99 [facility] 05/21/22 13:13 05/21/22 13:14 05/21/22 13:15 Temperature Pulse Rate 49 L 55 L 45 L Pulse Rate [Left P ulse Oximeter] Respiratory Rate Blood Pressure 112/68 Blood Pressure [Le ft Arm] Blood Pressure [Ri ght Upper Arm] Pulse Oximetry 90 98 100 [facility] 05/21/22 13:22 05/21/22 13:30 05/21/22 13:31 Temperature Pulse Rate 50 L 43 L 43 L Pulse Rate [Left P ulse Oximeter] Respiratory Rate Blood Pressure 118/61 103/68 Blood Pressure [Le ft Arm] Blood Pressure [Ri ght Upper Arm] Pulse Oximetry 99 98 98 [facility] 05/21/22 13:42 05/21/22 13:45 05/21/22 16:00 Temperature Pulse Rate 52 L 48 L Pulse Rate [Left P ulse Oximeter] Respiratory Rate 20 Blood Pressure 105/65 Blood Pressure [Le ft Arm] Blood Pressure [Ri ght Upper Arm] Pulse Oximetry 91 97 97 [facility] 05/21/22 16:00 05/21/22 15:00 05/21/22 15:05 Temperature 98.1 F Pulse Rate Pulse Rate [Left P ulse Oximeter] 61 61 Respiratory Rate 20 20 Blood Pressure Blood Pressure [Le ft Arm] 144/72 H Blood Pressure [Ri ght Upper Arm] Pulse Oximetry 97 97 Oxygen Delivery Me thod Room Air Room Air 05/21/22 15:05 05/21/22 18:54 05/21/22 20:10 Temperature 98.1 F 97.6 F Pulse Rate 68 Pulse Rate [Left P ulse Oximeter] 61 83 Respiratory Rate 20 18 Blood Pressure Blood Pressure [Le ft Arm] 144/72 H 145/68 H Blood Pressure [Ri ght Upper Arm] Pulse Oximetry 97 98 Oxygen Delivery Me thod Room Air Room Air 05/21/22 23:00 05/21/22 23:00 Temperature Pulse Rate Pulse Rate [Left P ulse Oximeter] 83 Respiratory Rate 18 Blood Pressure Blood Pressure [Le ft Arm] Blood Pressure [Ri ght Upper Arm] Pulse Oximetry 97 Oxygen Delivery Me thod Documenting provider has reviewed patient's vital signs: yes Labs Labs: Laboratory Results - last 24 hr 05/21/22 05/21/22 05/21/22 11:50 11:50 11:50 WBC 7.83 RBC 4.17 L Hgb 12.6 L Hct 38.3 MCV 92 MCH 30 MCHC 33 RDW Coeff of [place] 15.6 H Plt Count 204 Neut % (Auto) 82.7 H Lymph % (Auto) 8.2 L [place] % (Auto) 7.3 Eos % (Auto) 1.4 Baso % (Auto) 0.1 Neut # (Auto) 6.50 Lymph # (Auto) 0.60 L [place] # (Auto) 0.60 Eos # (Auto) 0.11 Baso # (Auto) 0.01 VBG pH VBG pCO2 VBG pO2 VBG HCO3 Sodium 139 Potassium 4.0 Chloride 105 Carbon Dioxide 29 BUN 24 Creatinine 0.8 Estimated GFR 90 Glucose 118 H Lactate Calcium 8.7 Total Bilirubin 1.7 H Direct Bilirubin 0.0 AST 21 ALT 13 Alkaline Phosphatase 66 C-Reactive Protein 4.3 H NT-Pro-B Natriuret Pep 1470 Total Protein 6.4 Albumin 3.6 TSH SARS-CoV-2 (PCR) Influenza Type A (PCR) Influenza Type B (PCR) RSV (PCR) POC Troponin I 05/21/22 05/21/22 05/21/22 11:50 11:50 11:50 WBC RBC Hgb Hct MCV MCH MCHC RDW Coeff of [place] Plt Count Neut % (Auto) Lymph % (Auto) [place] % (Auto) Eos % (Auto) Baso % (Auto) Neut # (Auto) Lymph # (Auto) [place] # (Auto) Eos # (Auto) Baso # (Auto) VBG pH 7.363 VBG pCO2 56 H VBG pO2 34.2 VBG HCO3 32 H Sodium Potassium Chloride Carbon Dioxide BUN Creatinine Estimated GFR Glucose Lactate 1.4 Calcium Total Bilirubin Direct Bilirubin AST ALT Alkaline Phosphatase C-Reactive Protein NT-Pro-B Natriuret Pep Total Protein Albumin TSH 3.940 SARS-CoV-2 (PCR) Influenza Type A (PCR) Influenza Type B (PCR) RSV (PCR) POC Troponin I 0.00 L 05/21/22 12:06 WBC RBC Hgb Hct MCV MCH MCHC RDW Coeff of [place] Plt Count Neut % (Auto) Lymph % (Auto) [place] % (Auto) Eos % (Auto) Baso % (Auto) Neut # (Auto) Lymph # (Auto) [place] # (Auto) Eos # (Auto) Baso # (Auto) VBG pH VBG pCO2 VBG pO2 VBG HCO3 Sodium Potassium Chloride Carbon Dioxide BUN Creatinine Estimated GFR Glucose Lactate Calcium Total Bilirubin Direct Bilirubin AST ALT Alkaline Phosphatase C-Reactive Protein NT-Pro-B Natriuret Pep Total Protein Albumin TSH SARS-CoV-2 (PCR) Negative SARS-CoV-2 Influenza Type A (PCR) Negative PCR FLU A Influenza Type B (PCR) Negative PCR FLU B RSV (PCR) Negative PCR RSV POC Troponin I
[2022-05-22] MEDS: SODIUM CHLORIDE 0.9 % (FLUSH) 10 ML SYRINGE 5 ML IVF ×2 (10:14→20:55)
[2022-05-22] MEDS: CARBIDOPA-LEVODOPA 25-100 TABLET 1 TAB PO ×3 (10:14→20:54)
[2022-05-22] MEDS: METOPROLOL TARTRATE 50 MG TABLET 75 MG PO (10:45)
--- NOTE | 2022-05-22 16:37 | PC.NURSE ---
Laceration above left eye with stitches has bled during day shift. Reinforced and redressed twice by RN. Pressure drsg applied per Dr. Del Valle and primary nurse with success in slowing the blood dripping in his left eye and down his left face. Left eye is bruised. Please see eMar for meds provided on day shift. New order of metoprolol given by Manju Smith RN. Dtr Maya updated via phone at 0950 am @ [phone]. Dr. Del Valle updated family and redressed wound this afternoon. Neuro checks unremarkable. Plan rtn to [facility] care near his instead of assisted living. Report to Zeny Dolan RN for evening shift.
[2022-05-22] MEDS: METOPROLOL TARTRATE 50 MG TABLET 25 MG PO (20:54)
--- NOTE | 2022-05-22 22:38 | PC.NURSE ---
Shift [id number]- Bandage to head remains in place without additional bleeding. His speech remains somewhat difficult to understand. He has occasional productive cough. He is up with walker, gait belt and assist of 1. He admits to some left sided shoulder pain this afternoon, but denies pain this evening. He declines pain intervention this afternoon.
[2022-05-23] MEDS: ACETAMINOPHEN 325 MG TABLET PO ×2 (00:05→08:24)
[2022-05-23 04:35] VITALS: BP 139/88; PULSE 77; RESP 18; TEMP 37.1; O2SAT 93
[2022-05-23 06:52] VITALS: PULSE 83
--- NOTE | 2022-05-23 07:26 | PC.NURSE ---
pt up several times to the bathroom once for a BM. Removed dressing from left eye wound. No drainange observed. Denies eye pain but complained of headache and that's why he removed dressing. Also complained of left shoulder pain. PRN tylenol given.
[2022-05-23 07:45] VITALS: BP 155/88; PULSE 83; PULSE 84; RESP 18; TEMP 36.8; O2SAT 96
[2022-05-23] MEDS: CARBIDOPA-LEVODOPA 25-100 TABLET 1 TAB PO (08:25)
[2022-05-23] MEDS: METOPROLOL TARTRATE 50 MG TABLET 25 MG PO (08:25)
--- NOTE | 2022-05-23 09:53 | P.DS_ITS ---
DS: Providers Provider Time Seen by Provider: 08:32 Date Seen: 05/23/22 Date of admission: 05/21/22 14:33 Primary care physician: Loli Miller MD Admitting Clinician: Aura Vargas MD Consults: 05/21/22 15:05 Consult to Occupational Therapy [CONS] Routine Comment: Reason(s) for OT Consult:: Evaluate and Treat Any Restrictions?:: No Restrictions Consult to Physical Therapy [CONS] Routine Comment: Reason(s) for PT Consult:: Evaluate and Treat Any Restrictions?:: No Restrictions 05/21/22 16:39 Consult to Occupational Therapy [CONS] Routine Comment: Reason(s) for OT Consult:: Evaluate and Treat Any Restrictions?:: No Restrictions Consult to Physical Therapy [CONS] Routine Comment: Reason(s) for PT Consult:: Evaluate Ambulation Any Restrictions?:: No Restrictions Attending Physician on discharge: Antoinette Del Valle MD Date of Discharge: 05/23/22 DS: Diagnosis Discharge Diagnosis (1) Left shoulder pain: Status: Acute (2) Fall: Status: Acute Problem details: Date of injury, morning of 05/21/2022. Subdural hemorrhage, small. Small laceration to the left eyebrow. (3) Chronic anticoagulation: Status: Acute Problem details: Now stopped 05/23/22 (4) Laceration: Status: Acute Problem details: left forehead (5) Subdural hemorrhage: Status: Acute Problem details: 2 mm. Stable on repeat head CT 05/21/22pm (6) Bradycardia: Status: Acute Problem details: Holding current antihypertensives. Serial EKGs and telemetry. May need is Zio patch on discharge. (7) Atrial flutter: Status: Acute (8) Parkinsons: Status: Acute Problem details: Moderate. Mild rigidity and masked expression. (9) History of pulmonary embolism: Status: Acute Problem details: 03/06. was on xarelto. (10) History of DVT (deep vein thrombosis): Status: Acute Problem details: 03/06. was on xarelto. DS: Summary Hospital Course Hospital Course: This is a 77-year-old male with a history of PE and DVT in February for which he was started on Xarelto, longstanding Parkinson's disease and atrial flutter whose memory has been getting worse. He became confused and when out to the parking lot to look for his car even though that had been taken away last February and he no longer drives. While in the parking lot he fell on the ice and hit the left side of his head and left shoulder. X-ray of the left shoulder is unremarkable. And CT head showed 2 small subdural hematomas. He also had a bleeding laceration of his left forehead which was sutured, but continued to ooze secondary to being on Xarelto. This was dressed several times with surgical foam and pressure dressings and did achieve hemostasis yesterday afternoon. A repeat CT of his head 12 hours after the 1st one showed stable subdural hematomas. He is ambulating at his baseline. PT and OT saw him and also work with his shoulder. His daughter's secured a place for him at [facility] at the same facility that he was at, and he will now be with his who is also in memory care there. Also of note is that he had a bradycardia on admission. He felt dizzy prior to his fall and bradycardia may have contributed to this. His metoprolol and diltiazem were held and as his heart rate normalized, his metoprolol was restarted. He did not tolerate his usual dose of metoprolol and had bradycardia. I have cut down his metoprolol dose to 25 mg twice a day, which he is tolerating. His heart rate occasionally jumps up to 106 activity. If spoken with his daughters, Maya and Rochelle, about the possibility of cardiology referral for possible need for pacemaker. They wished to discuss this with the patient's primary as an outpatient and possibly see Cardiology as an outpatient. The patient himself did not want a pacemaker when I discussed it with him however he was also willing to do whatever his daughters recommend. We also discussed the risks and benefits of being on further anticoagulation. At this time I believe the risk of falls and bleeding from laceration and subdural hematomas outweigh the benefit of prevent ting further PE and DVT. The patient and his daughters were in agreement with this. Time Spent with Patient Time attestation: Total time spent providing and/or coordinating discharge services: Exam Narrative: Exam Narrative: General: No acute distress. Awake, alert, oriented x3. No pallor. No jaundice. Oropharynx: Clear. Mucous membranes moist. Cardiovascular: Irregularly irregular. No murmurs, gallops, or rubs. Respiratory: Clear to auscultation bilaterally. No wheezes or crackles. Abdomen: Bowel sounds present. Soft, nondistended, nontender. Extremities: No pedal edema. Neuro: Grossly intact. No focal deficits. Skin: Left scalp laceration and hematoma now dry and hemostatic, left open to air. No induration. Bruising around left eye is stable. Const: Vital Signs, click to edit/add: Vital Signs - 24 hr 05/22/22 11:00 05/22/22 16:47 05/22/22 15:55 Temperature 98 F 98 F Pulse Rate Pulse Rate [Left P ulse Oximeter] 74 84 Respiratory Rate 18 18 Blood Pressure [Le ft Arm] 117/75 136/77 Pulse Oximetry 94 95 95 Oxygen Delivery Me thod Room Air Room Air 05/22/22 15:01 05/22/22 19:05 05/22/22 23:50 Temperature 97.9 F 98.4 F Pulse Rate 80 Pulse Rate [Left P ulse Oximeter] 84 86 Respiratory Rate 18 18 Blood Pressure [Le ft Arm] 141/66 H 150/91 H Pulse Oximetry 96 94 Oxygen Delivery Me thod Room Air Room Air 05/23/22 04:35 05/23/22 06:52 Temperature 98.8 F Pulse Rate 83 Pulse Rate [Left P ulse Oximeter] 77 Respiratory Rate 18 Blood Pressure [Le ft Arm] 139/88 Pulse Oximetry 93 Oxygen Delivery Me thod Room Air Documenting provider has reviewed patient's vital signs: yes DS: Data Data Completed and Pending Completed studies during hospitalization: Ordering Physician: Neisha Arroyo M.D. Date of Service: 05/21/22 Procedure(s): CT head/brain wo [facility] Accession Number(s): [id number] cc: Neisha Arroyo M.D.; Loli Miller M.D.~ For Patients: As a result of the 21st Century Cures Act, medical imaging exams and procedure reports are released immediately into your electronic medical record. You may view this report before your referring provider. If you have questions, please contact your health care provider. INDICATION: Fall, history of dementia TECHNIQUE: CT head without contrast. COMPARISON: None. FINDINGS: CSF spaces: Slight intermediate density thickening at the level of the anterior aspect of the falx measuring 2 millimeters (series 2, image 28). No mass effect. Brain parenchyma: Vitale-white differentiation is distinct. Mild cerebral atrophy. Skull base and calvarium: The visualized paranasal sinuses and mastoid air cells demonstrate no acute or significant findings. The visualized orbits are grossly unremarkable. No skull fractures. Atherosclerosis. Left supraorbital scalp hematoma. IMPRESSION: 1. Intermediate density thickening of the anterior falx measuring 2 millimeters, likely a small subdural hematoma. No significant mass effect. 2. Left supraorbital scalp hematoma without calvarial fracture. 3. Mild cerebral atrophy. Results called to Dr. Arroyo at 1234 on 05/21/2022 Please note that all CT scans at this facility use dose modulation, iterative reconstruction, and/or weight-based dosing when appropriate to reduce radiation dose to as low as reasonably achievable. Dictated by Aime Yan MD @ 05/21/2022 12:37:14 PM (Electronically Signed) Ordering Physician: Neisha Arroyo M.D. Date of Service: 05/21/22 Procedure(s): XR shoulder LT min 2V Accession Number(s): [id number] cc: Neisha Arroyo M.D.; Loli Miller M.D.~ For Patients: As a result of the Cures Act, medical imaging exams and procedure reports are released immediately into your electronic medical record. You may view this report before your referring provider. If you have questions, please contact your health care provider. Indication: Injury Technique: Three views Comparison: None Findings: Bones: Osteopenia without evidence of fracture. Joint spaces: Unremarkable. Soft tissues: Unremarkable. Dictated by Aime Yan MD @ 05/21/2022 4:04:16 PM (Electronically Signed) Ordering Physician: Aura Vargas M.D. Date of Service: 05/21/22 Procedure(s): CT head/brain wo con Accession Number(s): [id number] cc: Aura Vargas M.D.; Loli Miller M.D.~ For Patients: As a result of the Cures Act, medical imaging exams and procedure reports are released immediately into your electronic medical record. You may view this report before your referring provider. If you have questions, please contact your health care provider. INDICATION: Intracranial hemorrhage TECHNIQUE: Head CT without contrast. COMPARISON: Same date at 11:43 a.m. FINDINGS: CSF spaces: Within normal limits for age. Brain parenchyma: There are nonspecific low attenuation white matter changes consistent with chronic microvascular disease. Unchanged appearance of likely subacute subdural hematoma along the anterior falx, best seen on image 30 series 2 is serious 6 mm in maximum diameter. No sign of mass or midline shift. Skull base and calvarium: The visualized paranasal sinuses and mastoid air cells demonstrate no acute or significant findings. The visualized orbits are grossly unremarkable. No skull fractures. There is intracranial atherosclerosis. Left periorbital soft tissue swelling. IMPRESSION: Likely small, subacute anterior parafalcine subdural hematoma, stable. Left periorbital soft tissue swelling. Please note that all CT scans at this facility use dose modulation, iterative reconstruction, and/or weight-based dosing when appropriate to reduce radiation dose to as low as reasonably achievable. Dictated by Aminta Martin MD @ 05/21/2022 10:19:04 PM (Electronically Signed) 05/21/2022 11:53 a.m. EKG: Atrial flutter with variable AV block. 55 beats per minute. Left bundle branch block. 05/21/2022 6:46 p.m. EKG: Atrial flutter with variable AV block. 69 beats per minute. Left bundle branch block. 05/21/2022 6:47 p.m. EKG: Atrial flutter with variable AV block with premature ventricular or aberrantly conducted complexes. 62 beats per minute. Left bundle branch block. Discharge Plan Discharge Disposition: Home, Self-Care Date of Admission: 05/21/22 14:33 Attending Provider on Discharge: Antoinette Del Valle Primary Care Provider: Loli Miller Condition: Improved Anticipated Discharge Date/Time: 05/23/22 10:18 Discharge Medications: New metoprolol tartrate 50 mg Tablet 25 mg PO BID Qty: 60 0RF Continued carbidopa-levodopa 25-100 mg tablet 1 tab PO TID Label Comments: TAKE 1 TABLET BY MOUTH THREE TIMES DAILY triamcinolone acetonide 0.1 % Cream 1 applic topical BID Qty: 15 0RF Discontinued diltiazem HCl 60 mg capsule,extended release 12 hr 60 mg PO BID Qty: 60 2RF metoprolol tartrate 50 mg Tablet 75 mg PO BID Qty: 90 0RF Xarelto 15 mg tablet 15 mg PO Q24H Label Comments: TAKE 1 TABLET BY MOUTH twice DAILY Discharge Orders: Discharge Order (Routine); Ordered 05/23/22 Ordered By: Antoinette Del Valle Patient Education: Intracranial Hematoma (DC) Additional Instructions: 1. PT and OT to evaluate and treat. 2. Suture removal in 5 days. Activity Level: Activity as Tolerated and Use Walker Discharge Diet: Regular Follow Up Appointments: Loli Miller MD [Primary Care Provider] - (3-5 days) Forms: [employer] Info Instructions
--- NOTE | 2022-05-23 11:26 | PC.NURSE ---
Please see eMar for meds given. Pt's laceration w/sutures above his left eye is open to air. Tele indicates aflutter 2:1 with BBB. Pt's dtr verbalized understanding of d/c diagnosis, f/up appt needed, medication changes and sx to report urgently. Pt discharged via w/c to [facility] w/personal belongings w/dtr Maya to transport@ 1105 am. PT and OT are recommended.
--- NOTE | 2022-05-23 11:53 | PC.NURSE ---
Metoprolol prescription sent to [facility]. However, [facility] is closed today. Metoprolol prescription called in to [facility] per preference of patient/family. Message left at [facility] to cancel Metoprolol prescription.
== END 2022-05-23 11:05 | disposition home or self-care (01) ==
LOC: ED 12:11 → MEDSURG 14:33
PROVIDERS: Admitting Provider Family Medicine; Emergency Provider Emergency Medicine; PCP Family Medicine; Visit Provider Family Medicine
DX: I62.00 Nontraumatic subdural hemorrhage, unspecified (principal); S01.112A Laceration without foreign body of left eyelid and periocular area, initial encounter; S01.81XA Laceration without foreign body of other part of head, initial encounter; R00.1 Bradycardia, unspecified; M25.512 Pain in left shoulder; G20 Parkinson's disease; I48.92 Unspecified atrial flutter; Z86.711 Personal history of pulmonary embolism; Z86.718 Personal history of other venous thrombosis and embolism; Z86.59 Personal history of other mental and behavioral disorders; Z79.01 Long term (current) use of anticoagulants; W19.XXXA Unspecified fall, initial encounter; M85.80 Other specified disorders of bone density and structure, unspecified site; T14.90XA Injury, unspecified, initial encounter; Z66 Do not resuscitate; Z87.891 Personal history of nicotine dependence; Z98.890 Other specified postprocedural states; Z87.898 Personal history of other specified conditions; R79.82 Elevated C-reactive protein (CRP); E80.7 Disorder of bilirubin metabolism, unspecified; Z20.822 Contact with and (suspected) exposure to COVID-19; R26.81 Unsteadiness on feet
CPT/HCPCS: 12001; 36415; 70450; 73030; 80048; 80076; 82803; 83605; 83880; 84443; 84484; 85025; 86140; 87502; 87634; 87635; 93005; 94761; 96361; 96374; 97116; 97161; 97165; 97535; 99284; 99285; G0378; A9270; C9113; G0379; J7120

== ENCOUNTER 2022-08-24 12:32 | Outpatient (REF) | payer MEDICARE, SELFPAY ==
[2022-08-24 14:00] LABS: Chloride* 103 mmol/L (96-114); Sodium* 141 mmol/L (135-149)
[2022-08-24 14:03] LABS: Carbon Dioxide* 32 mmol/L (20-32); Creatinine* 0.8 mg/dL (0.5-1.5); Estimated Glomerular Filt Rate 90 ml/min
[2022-08-24 14:04] LABS: Blood Urea Nitrogen* 21 mg/dL (7-30); Calcium* 9.1 mg/dL (8.4-10.6); Glucose* 94 mg/dL (60-115)
[2022-08-24 14:24] LABS: PSA Screen* 2.05 ng/mL (0.10-4.00)
== END 2022-08-24 12:33 | disposition home or self-care (01) ==
LOC: NPINS 12:32
PROVIDERS: PCP Family Medicine; Visit Provider Family Medicine
DX: I10 Essential (primary) hypertension (principal); Z12.5 Encounter for screening for malignant neoplasm of prostate
CPT/HCPCS: 80048; 84153

== ENCOUNTER 2023-02-15 09:12 | Outpatient (REF) | payer MEDICARE, SELFPAY ==
[2023-02-15 09:31] LABS: Basophils Absolute Auto 0.02 K/uL (0.00-0.30); Basophils Percent Auto 0.3 % (0.0-3.0); Eosinophils Absolute Auto 0.11 K/uL (0.00-0.50); Eosinophils Percent Auto 1.8 % (0.0-7.0); Hemoglobin* 14.9 gm/dL (13.5-17.5); Immature Granulocytes Abs Auto 0.01 K/uL (0.00-0.30); Immature Granulocytes Pct Auto 0.2 %; Lymphocytes Percent Auto 15.1 % (20-44); Mean Corpuscular HGB Conc 33 gm/dL (32-36); Mean Corpuscular Hemoglobin 30 pg (26-34); Mean Corpuscular Volume 91 fL (80-100); Monocytes Percent Auto 10.3 % (0.0-11.0); Neutrophils Percent Auto 72.3 % (42.0-72.0); Platelet Count* 230 K/uL (140-440); RDW Coefficient of Variation % 13.1 % (11.5-15.5); Red Blood Count 4.95 m/uL (4.30-5.90); White Blood Count* 6.14 K/uL (4.50-11.00)
[2023-02-15 09:35] LABS: Slide Review Reflex No
[2023-02-15 09:36] LABS: Chloride* 104 mmol/L (96-114); Potassium* 4.6 mmol/L (3.6-5.1); Sodium* 141 mmol/L (135-149)
[2023-02-15 09:39] LABS: Anion Gap 10 mEq/L (7-15); Carbon Dioxide* 27 mmol/L (20-32); Creatinine* 0.7 mg/dL (0.5-1.5); Estimated Glomerular Filt Rate 94 ml/min
[2023-02-15 09:40] LABS: Blood Urea Nitrogen* 22 mg/dL (7-30); Calcium* 8.9 mg/dL (8.4-10.6); Glucose* 94 mg/dL (60-115)
== END 2023-02-15 09:13 | disposition home or self-care (01) ==
LOC: NPINS 09:12
PROVIDERS: PCP Family Medicine; Visit Provider Family Medicine
DX: I10 Essential (primary) hypertension (principal)
CPT/HCPCS: 80048; 85025

== ENCOUNTER 2023-04-26 08:59 | Outpatient (REF) | payer MEDICARE, SELFPAY ==
[2023-04-26 09:15] LABS: Basophils Absolute Auto 0.02 K/uL (0.00-0.30); Basophils Percent Auto 0.4 % (0.0-3.0); Eosinophils Absolute Auto 0.12 K/uL (0.00-0.50); Eosinophils Percent Auto 2.2 % (0.0-7.0); Hematocrit 42.7 % (37.0-53.0); Hemoglobin* 13.9 gm/dL (13.5-17.5); Immature Granulocytes Abs Auto 0.01 K/uL (0.00-0.30); Immature Granulocytes Pct Auto 0.2 %; Lymphocytes Percent Auto 14.1 % (20-44); Mean Corpuscular HGB Conc 33 gm/dL (32-36); Mean Corpuscular Hemoglobin 30 pg (26-34); Mean Corpuscular Volume 92 fL (80-100); Monocytes Percent Auto 10.1 % (0.0-11.0); Platelet Count* 200 K/uL (140-440); RDW Coefficient of Variation % 13.1 % (11.5-15.5); Red Blood Count 4.63 m/uL (4.30-5.90); Slide Review Reflex No; White Blood Count* 5.45 K/uL (4.50-11.00)
[2023-04-26 09:18] LABS: Chloride* 106 mmol/L (96-114); Potassium* 4.5 mmol/L (3.6-5.1); Sodium* 141 mmol/L (135-149)
[2023-04-26 09:21] LABS: Blood Urea Nitrogen* 20 mg/dL (7-30); Creatinine* 0.8 mg/dL (0.5-1.5); Estimated Glomerular Filt Rate 89 ml/min; Glucose* 89 mg/dL (60-115)
[2023-04-26 09:22] LABS: Anion Gap 5 mEq/L (7-15); Carbon Dioxide* 30 mmol/L (20-32)
== END 2023-04-26 09:00 | disposition home or self-care (01) ==
LOC: NPINS 08:59
PROVIDERS: PCP Family Medicine; Visit Provider Nurse Practitioner Gerontology
DX: R42 Dizziness and giddiness (principal); Z13.29 Encounter for screening for other suspected endocrine disorder; I10 Essential (primary) hypertension; I48.92 Unspecified atrial flutter; Z86.718 Personal history of other venous thrombosis and embolism; Z79.01 Long term (current) use of anticoagulants; Z86.711 Personal history of pulmonary embolism
CPT/HCPCS: 80048; 84443; 85025

== ENCOUNTER 2023-07-03 13:49 | Emergency (ER) | payer MEDICARE, SELFPAY ==
[2023-07-03 13:54] VITALS: BP 190/98; PULSE 66; RESP 18; TEMP 35.9; O2SAT 96; BMI 27.1
--- NOTE | 2023-07-03 14:00 | CT_ITS ---
Patient: MARIAMA HOGAN Facility:?[facility] Patient ID:?[id number] Site Patient [id number]:?[id number]. Site :?[id number] Study:?CT-Head W/O-07/03/2023 2:34:24 PM Ordering Physician:MARAT Final Report: Indication: Fall. Technique: Noncontrast CT of the head with multiplanar reconstruction in bone and soft tissue kernels. Comparison: None available. Findings: No acute intracranial hemorrhage. The wolf-white matter interface is preserved. The ventricles are normal in size. There is mild diffuse parenchymal volume loss. The calvarium is intact. The orbits are unremarkable. The paranasal sinuses and mastoid air cells are predominantly clear. Impression: No acute intracranial abnormality. Please note that all CT scans at this facility use dose modulation, iterative reconstruction, and/or weight-based dosing when appropriate to reduce radiation dose to as low as reasonably achievable. Dictated by Patrick Eaton MD @ 07/03/2023 2:47:15 PM Signed by:?Patrick Eaton MD @07/03/2023 2:47:15 PM (Electronic Signature)
--- NOTE | 2023-07-03 14:07 | ED_ITS ---
HPI - General Adult General Date Seen: 07/03/23 Chief complaint: Laceration/Wound Stated complaint: Fall, lac on scalp Time Seen by Provider: 07/03/23 13:54 Source: patient, family, RN notes reviewed and old records reviewed Mode of arrival: ambulatory Limitations: no limitations History of Present Illness HPI narrative: Patient is an 78-year-old male here with his daughter for evaluation after a fall. He lives at [facility] in a memory care unit. I saw him a year ago after a fall, head injury with laceration, subdural hemorrhage. At that time he was on Xarelto which has since been discontinued. He also had some bradycardia at that time was on metoprolol, dosage was decreased. Today, he apparently was trying to sit down in a chair, missed the edge and fell back hitting his head on a bed frame. He has a laceration on the back of his scalp. No reported loss of consciousness. He denies headache or neck pain. Related Data Home Medications ?Medication ?Instructions ?Recorded ?Confirmed carbidopa 25 mg-levodopa 100 mg 1 tab PO TID 02/22/22 07/03/23 tablet lisinopril 2.5 mg tablet 2.5 mg PO DAILY 07/03/23 07/03/23 metoprolol succinate 100 mg PO 07/03/23 tablet,extended release 24 hr polyethylene glycol 3350 17 g PO 07/03/23 gram/dose oral powder sertraline 50 mg tablet PO 07/03/23 Previous Rx's ?Medication ?Instructions ?Recorded triamcinolone acetonide 0.1 % 1 applic topical BID #15 grams 03/01/22 topical cream metoprolol tartrate 50 mg tablet 25 mg (1/2 x 50 mg) PO BID #60 tabs 05/23/22 Allergies Allergy/AdvReac Type Severity Reaction Status Date / Time No Known Drug Allergies Allergy Verified 07/16/22 14:14 Review of Systems Status of ROS: Reports: 6 or more systems reviewed and unremarkable except as noted in History and below [facility] Medical History Atrial flutter ?I48.92 - Unspecified atrial flutter (ICD-10) History of pulmonary embolism ?Z86.711 - Personal history of pulmonary embolism (ICD-10) Dysphagia ?R13.10 - Dysphagia, unspecified (ICD-10) DVT of leg (deep venous thrombosis) ?I82.409 - Acute embolism and thrombosis of unspecified deep veins of unspecified lower extremity (ICD-10) Pleural effusion ?J90 - Pleural effusion, not elsewhere classified (ICD-10) Atrial flutter with rapid ventricular response ?I48.92 - Unspecified atrial flutter (ICD-10) Parkinsons ?G20 - Parkinson's disease (ICD-10) History of paroxysmal supraventricular tachycardia ?Z86.79 - Personal history of other diseases of the circulatory system (ICD- 10) History of DVT (deep vein thrombosis) ?Z86.718 - Personal history of other venous thrombosis and embolism (ICD-10) Smoking greater than 40 pack years ?F17.210 - Nicotine dependence, cigarettes, uncomplicated (ICD-10) Hypertension ?I10 - Essential (primary) hypertension (ICD-10) Hyperlipidemia ?E78.5 - Hyperlipidemia, unspecified (ICD-10) History of breast cancer in male ?Z85.3 - Personal history of malignant neoplasm of breast (ICD-10) Community acquired pneumonia ?J18.9 - Pneumonia, unspecified organism (ICD-10) Surgical History H/O cardiac radiofrequency ablation ?Z98.890 - Other specified postprocedural states (ICD-10) H/O hemorrhoidectomy ?Z98.890 - Other specified postprocedural states (ICD-10) History of mastectomy ?Z90.10 - Acquired absence of unspecified breast and nipple (ICD-10) History of bilateral knee replacement ?Z96.653 - Presence of artificial knee joint, bilateral (ICD-10) Social History Narrative: 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 Previously heavy smoker. Lives across the [address] at [facility]. Highest level of school completed/degree received: high school graduate Smoking Status: Former smoker Do you use any of these nicotine containing products: None How often do you have a drink containing alcohol: 2-3 times a week AUDIT-C Alcohol total score: 3 Non-prescribed substance use: denies use Caffeine: Yes service: No Exam Narrative: Exam Narrative: Vital signs reviewed In general, alert, nontoxic elderly male. He is conversant, pleasant. GCS 15. Head: Normocephalic. He has a 1 cm laceration on the upper posterior scalp, no significant hematoma, bleeding controlled. Eyes: Pupils equal and reactive. ENT: No other facial trauma. Neck: Nontender to palpation. Heart: Regular rate and rhythm Lungs: Clear bilaterally, no increased work of breathing. Back: Nontender, atraumatic. Extremities: Atraumatic. Skin: Warm dry well perfused. Neurologic: Patient is alert, answers questions appropriately, follows commands moves all extremities. Const: Vital Signs, click to edit/add: Vital Signs - 24 hr 07/03/23 13:54 07/03/23 14:56 Temperature 96.6 F L Pulse Rate [Pulse Oximeter] 66 66 Respiratory Rate 18 Blood Pressure [Ri ght Upper Arm] 190/98 H 152/84 H Pulse Oximetry 96 95 Oxygen Delivery Me thod Room Air Room Air Course Course ED Course: Given his history of subdural hematoma I did recommend that we do a CT scan. Procedure note: The wound on his scalp was cleaned explored without evidence of foreign body and closed using Dermabond. He tolerated this well without imme diate complication. Head CT by my review shows no evidence of hemorrhage. Final radiology read is negative for acute findings. Unable to find documentation of prior tetanus so we did give him a tetanus today. Discharge home, routine wound care, head injury precautions. Return for worsening or signs of infection. Vital Signs Vital signs: Initial Vital Signs Temperature 96.6 F L 07/03/23 13:54 Temperature Source Temporal Artery Scan 07/03/23 13:54 Pulse Rate 66 07/03/23 13:54 Respiratory Rate 18 07/03/23 13:54 Blood Pressure 190/98 H 07/03/23 13:54 Blood Pressure Mean 128 H 07/03/23 13:54 Blood Pressure Position Supine 07/03/23 13:54 Pulse Oximetry 96 07/03/23 13:54 Oxygen Delivery Method Room Air 07/03/23 13:54 Vital Signs Temperature 96.6 F L 07/03/23 13:54 Pulse Rate 66 07/03/23 13:54 Respiratory Rate 18 07/03/23 13:54 Blood Pressure 190/98 H 07/03/23 13:54 Pulse Oximetry 96 07/03/23 13:54 Oxygen Delivery Method Room Air 07/03/23 13:54 Temperature 96.6 F L 07/03/23 13:54 Pulse Rate 66 07/03/23 14:56 Respiratory Rate 18 07/03/23 13:54 Blood Pressure 152/84 H 07/03/23 14:56 Pulse Oximetry 95 07/03/23 14:56 Oxygen Delivery Method Room Air 07/03/23 14:56 Medications Administered Medications: Discontinued Medications Generic Name Dose Route Start Last Admin Trade Name Freq PRN Reason Stop Dose Admin Diphtheria/Tetanus/Acell Pertussis 0.5 ml 07/03/23 14:54 07/03/23 15:00 Tetanus/Diphth/Pertussis 0.5 Ml Syringe IM 07/03/23 14:55 0.5 ml .ONCE ONE Administration Discharge Plan Discharge Clinical Impression: Laceration of scalp Patient Disposition: Home w/ Parent or Adult Condition: Improved Instructions: Laceration (ED), Skin Adhesive Care (ED) Additional Instructions: Return for signs of infection. Glue will slough off over the next couple of weeks. Head CT shows no signs of bleeding internally. Prescriptions: No Action carbidopa-levodopa 25-100 mg tablet 1 tab PO TID Patient Comments: TAKE 1 TABLET BY MOUTH THREE TIMES DAILY triamcinolone acetonide 0.1 % Cream 1 applic topical BID Qty: 15 0RF metoprolol tartrate 50 mg Tablet 25 mg PO BID Qty: 60 0RF metoprolol succinate 100 mg tablet extended release 24 hr PO polyethylene glycol 3350 17 gram/dose powder PO sertraline 50 mg tablet PO lisinopril 2.5 mg tablet 2.5 mg PO DAILY Follow Up/Referrals: Loli Miller MD [Primary Care Provider] - Stand Alone Forms: My[facility] Info Instructions
--- OUTSIDE RECORDS SUMMARY | 2023-07-03 14:11 | XMS_ITS | Clinical Summary ---
Author Name Unknown Organization [employer] [facility] Address [place], [place] [address] Care Team Providers Care Physicians And Surgeons Name Role Phone Francisco Navarro MD Primary Care Provider + Allergies No known active allergies Medications Medication Sig Dispensed Refills Start Date End Date Status amLODIPine (NORVASC) 10 mg tabletIndications:HT N (hypertension) Take 1 tablet by mouth once daily. 90 tablet 1 12/08/2015 Active lisinopril (PRINIVIL; ZESTRIL) 20 mg tabletIndications:HT N (hypertension) Take 1 tablet by mouth once daily. 90 tablet 1 12/08/2015 Active fluticasone (50 mcg per actuation) nasal solution (FLONASE)Indications :Post-nasal drainage Inhale 2 Sprays into both nostrils once daily. 1 Bottle 3 12/08/2015 Active pravastatin (PRAVACHOL) 20 mg tablet Take 1 tablet by mouth at bedtime. 0 12/25/2015 Active aspirin (ECOTRIN) 81 mg enteric coated tablet Take 1 tablet by mouth once daily with a meal. 0 12/25/2015 Active atenolol (TENORMIN) 25 mg tabletIndications:Stover praventricular tachycardia, paroxysmal Take 2 tablets by mouth once daily. 90 tablet 3 01/02/2016 Active medication order composer Metamucil 2 tsp daily at HS 0 01/05/2016 Active acetaminophen pediatric (TYLENOL) Take by mouth. 0 A ctive atenoloL (TENORMIN) 50 mg tabletIndications:SV T (supraventricular tachycardia) Take 1 Tablet (50 mg) by mouth once daily. 60 Tablet 3 02/02/2021 Active Active Problems Problem Noted Date Diagnosed Date History of knee replacement, total, bilateral Dupuytren contracture 01/08/2021 DVT (deep venous thrombosis) 01/05/2016 Overview: On Tamoxifen. 6 months coumadin. Erectile dysfunction 01/21/2015 Gout of big toe 01/21/2015 Health Maintenance 01/21/2015 Breast cancer 11/24/2010 Overview: Finished radiation therapy in 2009. On tamoxifen. Pure hypercholesterolemia 11/24/2010 HTN (hypertension) 11/24/2010 Paroxysmal supraventricular tachycardia 11/25/19 11 Resolved Problems Problem Noted Date Diagnosed Date Resolved Date Paroxysmal SVT (supraventricular tachycardia) 12/25/19 11 01/07/2011 Family History Medical History Relation Name Comments Cancer Brother 3 Cancer Sister 5 Relation Name Status Comments Brother 1 Alive Prostrate cance r Brother 2 Alive Brother 3 Father (Age 85) stroke Mother (Age 86) calcified artery Sister 1 Alive Breast cancer Sister 2 Alive SVT Sister 3 Alive Sister 4 Alive Sister 5 Social History Tobacco Use Types Packs/Day Years Used Date Smoking Tobacco: Former Cigarettes 1 50 Smokeless Tobacco: Never Tobacco Cessation:Ready to Q uit: No Comments:quit one year ago, E cigs currently Alcohol Use Standard Drinks/Week Comments Yes 14 (1 standard drink = 0.6 oz pu re alcohol) daily- 2-3 daily Social Connections Answer Date Recorded Frequency of Communication with Friends and Fami ly Not on file 05/16/2021 Financial Resource Strain Answer Date R ecorded Difficulty of Paying Living Expenses Not on file 05/16/2021 Difficulty of Paying Living Expenses Not on file 05/16/2021 Sex and Gender Information Value Date Recorded Sex Assigned at Not on file Gender Identity Not on file Sexual Orientation Not on file Obstetrics History Last Filed Vital Signs Vital Sign Reading Time Taken Comments Blood Pressure 130/64 01/05/2016 2:23 PM CDT Pulse 68 01/05/2016 2:23 PM CDT Temperature 36.7 ??C (98 ??F) 12/08/2015 11:00 AM CDT Respiratory Rate - - Oxygen Saturation 95% 01/02/2016 10:35 AM CDT Inhaled Oxygen Concentration - - Weight 106.6 kg (235 lb) 01/08/2021 10:24 AM CDT Height 188 cm (6' 2.02) 01/08/2021 10:24 AM CDT Body Mass Index 30.16 01/08/2021 10:24 AM CDT Plan of Treatment Health Maintenance Due Date Last Done Comments Tdap 1954 Depression screening for age 12+ 1955 Tetanus booster 1963 Zoster (shingles) series for age 50+ (1 of 2) 1993 Medicare Wellness for age 65+ 2008 Pneumococcal series for age 65+ (1 of 1 - PCV) 2008 BMI (ht and wt on same day) for age 18+ 01/08/2022 0 01/08/2021, 01/05/2016 COVID-19 vaccine series (2 - 2022- season) 2023 01/12/2021 Influenza for age 65+ 01/14/2023 Care Teams Physicians And Surgeons Relationship Specialty Start Date End Date Francisco Navarro MD [address] [place] [address] PCP - General Family Practice 02/23/22
[2023-07-03 14:56] VITALS: BP 152/84; PULSE 66; O2SAT 95
[2023-07-03] MEDS: TETANUS/DIPHTH/PERTUSSIS 0.5 ML SYRINGE IM (15:00)
== END 2023-07-03 15:08 | disposition home or self-care (01) ==
PROVIDERS: Emergency Provider Emergency Medicine; PCP Family Medicine
DX: S01.01XA Laceration without foreign body of scalp, initial encounter (principal); W19.XXXA Unspecified fall, initial encounter; Y92.099 Unspecified place in other non-institutional residence as the place of occurrence of the external cause; Z23 Encounter for immunization
CPT/HCPCS: 12001; 70450; 90471; 90715; 99284

== ENCOUNTER 2023-09-13 10:12 | Outpatient (CLI) | payer MEDICARE, SELFPAY ==
--- OUTSIDE RECORDS SUMMARY | 2023-09-13 10:20 | XMS_ITS | Clinical Summary ---
Author Name Unknown Organization [employer] [facility] Address [place], [place] [address] Care Team Providers Care Salvage Inspector Name Role Phone Francisco Navarro MD Primary [...] (TENORMIN) 25 mg tabletIndications:Stover praventricular tachycardia, paroxysmal (HC) Take 2 tablets by mouth once daily. 90 tablet 3 01/02/2016 Active medication order composer Metamucil 2 tsp daily at HS 0 01/05/2016 Active acetaminophen pediatric (TYLENOL) Take by mouth. A ctive atenoloL (TENORMIN) 50 mg tabletIndications:SV T (supraventricular tachycardia) (HC) Take 1 Tablet (50 mg) by mouth [...] 01/08/2022 0 01/08/2021, 01/05/2016 COVID-19 vaccine series ( season) 2023 01/12/2021 Influenza for age 65+ 01/15/2024 Care Teams Salvage Inspector Relationship Specialty Start Date End Date Francisco Navarro MD [address] [place] [address] PCP - General Family Practice 02/23/22
--- NOTE | 2023-09-13 10:45 | MM_ITS ---
Patient: MARIAMA HOGAN Facility:?[facility] Patient ID:?[id number] Site Patient ID:?[id number] Site :?[id number] Study:?XRay-Breast Bilateral 3D W/CAD-09/13/2023 11:30:11 AM Ordering Physician:Loli Richards Final Report: CLINICAL HISTORY: : LEFT breast lump. COMPARISON: 09/11/2018, 01/20/2021 TECHNIQUE: Digital BILATERAL mammogram in 4 projections. BREAST COMPOSITION: Almost entirely fat FINDINGS: 3D cc/MLO bilateral mammogram images submitted. Post surgical changes are present on the left with benign coarse calcifications. No adenopathy bilaterally. No suspicious masses or architectural distortion. No significant change compared to the prior studies. IMPRESSION: No suspicious findings. No evidence of malignancy. RECOMMENDATIONS: Clinical follow-up. BI-RADS: 2. Benign. Dictated by Francisco Castaneda MD @ 09/13/2023 11:53:59 AM Signed by:?Francisco Castaneda MD @09/13/2023 11:53:59 AM (Electronic Signature)
== END 2023-09-13 10:13 | disposition home or self-care (01) ==
LOC: MAMMO 10:13
PROVIDERS: PCP Family Medicine; Visit Provider Family Medicine
DX: N63.42 Unspecified lump in left breast, subareolar (principal); Z85.3 Personal history of malignant neoplasm of breast
CPT/HCPCS: 77066; G0279

== ENCOUNTER 2023-10-04 17:09 | Emergency (ER) | payer MEDICARE, SELFPAY ==
[2023-10-04 17:12] VITALS: BP 171/101; PULSE 63; RESP 16; TEMP 35.8; O2SAT 98
--- NOTE | 2023-10-04 17:17 | ED_ITS ---
HPI - General Adult General Chief complaint: Fall/Minor Trauma Stated complaint: fell, hit head Time Seen by Provider: 10/04/23 17:14 History of Present Illness HPI narrative: Pt lives at [facility]. Was walking, tripped on a blanket and fell and struck his arm and back, possibly his head as well while falling. Pt denies hitting his head. Has skin tears on R arm and abrasion on his back. Denies pain. 78-year-old man presenting to the emergency department after a fall and is [facility]. Evidently tripped on a blanket and fell injuring his right arm and back. Nursing concern about potential head injury but Mr. Neumann maintains that this did not occur. No neck pain. No head pain. No loss of consciousness. Denies any abdominal pain. No shortness of breath. Has been ambulatory per usual since this injury. Uses a walker. Denies injury to his legs. No longer anticoagulated. Accompanied by daughter I believe Related Data Home Medications Medication Instructions Recorded Confirmed carbidopa 25 mg-levodopa 100 mg 1 tab PO TID 02/22/22 07/03/23 tablet lisinopril 2.5 mg tablet 2.5 mg PO DAILY 07/03/23 07/03/23 metoprolol succinate 100 mg PO 07/03/23 tablet,extended release 24 hr polyethylene glycol 3350 17 g PO 07/03/23 gram/dose oral powder sertraline 50 mg tablet PO 07/03/23 Previous Rx's Medication Instructions Recorded triamcinolone acetonide 0.1 % 1 applic topical BID #15 grams 03/01/22 topical cream metoprolol tartrate 50 mg tablet 25 mg (1/2 x 50 mg) PO BID #60 tabs 05/23/22 Allergies Allergy/AdvReac Type Severity Reaction Status Date / Time No Known Drug Allergies Allergy Verified 07/16/22 14:14 Review of Systems Status of ROS: Reports: 6 or more systems reviewed and unremarkable except as noted in History and below [facility] Medical History Atrial flutter ?I48.92 - Unspecified atrial flutter (ICD-10) History of pulmonary embolism ?Z86.711 - Personal history of pulmonary embolism (ICD-10) Dysphagia ?R13.10 - Dysphagia, unspecified (ICD-10) DVT of leg (deep venous thrombosis) ?I82.409 - Acute embolism and thrombosis of unspecified deep veins of unspecified lower extremity (ICD-10) Pleural effusion ?J90 - Pleural effusion, not elsewhere classified (ICD-10) Atrial flutter with rapid ventricular response ?I48.92 - Unspecified atrial flutter (ICD-10) Parkinsons ?G20 - Parkinson's disease (ICD-10) History of paroxysmal supraventricular tachycardia ?Z86.79 - Personal history of other diseases of the circulatory system (ICD- 10) History of DVT (deep vein thrombosis) ?Z86.718 - Personal history of other venous thrombosis and embolism (ICD-10) Smoking greater than 40 pack years ?F17.210 - Nicotine dependence, cigarettes, uncomplicated (ICD-10) Hypertension ?I10 - Essential (primary) hypertension (ICD-10) Hyperlipidemia ?E78.5 - Hyperlipidemia, unspecified (ICD-10) History of breast cancer in male ?Z85.3 - Personal history of malignant neoplasm of breast (ICD-10) Community acquired pneumonia ?J18.9 - Pneumonia, unspecified organism (ICD-10) Surgical History H/O cardiac radiofrequency ablation ?Z98.890 - Other specified postprocedural states (ICD-10) H/O hemorrhoidectomy ?Z98.890 - Other specified postprocedural states (ICD-10) History of mastectomy ?Z90.10 - Acquired absence of unspecified breast and nipple (ICD-10) History of bilateral knee replacement ?Z96.653 - Presence of artificial knee joint, bilateral (ICD-10) Social History 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 Lives [place] the [address] at [facility]. Highest level of school completed/degree received: high school graduate Smoking Status: Former smoker How often do you have a drink containing alcohol: 2-3 times a week AUDIT-C Alcohol total score: 3 Non-prescribed substance use: denies use Caffeine: Yes service: No Exam Narrative: Exam Narrative: Flatter faces. Quickly helpful with exam. Hearing quite well. Head actually looks atraumatic. Neck is supple nontender. Back without midline tenderness. Is breathing easily and lungs appear to be clear. At the left mid back there is a palm sized in maximal dimension irregular area of erythema consistent with abrasion as well as what looks to be injury to his shirt. Skin is not actually broken. Not bleeding. Mildly tender to palpation here. No crepitus appreciated. Is not tender to oppositional testing either. Chest otherwise without apparent injury. Lower extremities are without injury. Well-healed anterior surgical incisions consistent with total knees bilaterally. The right arm has a couple areas of skin tear. One is on the dorsum distal forearm/wrist and another on the proximal dorsal lateral forearm with 2 spots of injury also on the elbow that are not actively bleeding. Distal forearm maximal dimension The larger at the proximal forearm skin tear is irregular and 3 in in maximal length. Const: Vital Signs, click to edit/add: Vital Signs - 24 hr 10/04/23 17:12 Temperature 96.5 F L Pulse Rate [Pulse Oximeter] 63 Respiratory Rate 16 [facility] 171/101 H Pulse Oximetry 98 Oxygen Delivery Me thod Room Air Documenting provider has reviewed patient's vital signs: yes Course Vital Signs Vital signs: Initial Vital Signs Temperature 96.5 F L 10/04/23 17:12 Temperature Source Temporal Artery Scan 10/04/23 17:12 Pulse Rate 63 10/04/23 17:12 Respiratory Rate 16 10/04/23 17:12 Blood Pressure 171/101 H 10/04/23 17:12 Blood Pressure Mean 124 H 10/04/23 17:12 Blood Pressure Position Sitting 10/04/23 17:12 Pulse Oximetry 98 10/04/23 17:12 Oxygen Delivery Method Room Air 10/04/23 17:12 Vital Signs Temperature 96.5 F L 10/04/23 17:12 Pulse Rate 63 10/04/23 17:12 Respiratory Rate 16 10/04/23 17:12 Blood Pressure 171/101 H 10/04/23 17:12 Pulse Oximetry 98 10/04/23 17:12 Oxygen Delivery Method Room Air 10/04/23 17:12 Temperature 96.5 F L 10/04/23 17:12 Pulse Rate 63 10/04/23 17:12 Respiratory Rate 16 10/04/23 17:12 Blood Pressure 171/101 H 10/04/23 17:12 Pulse Oximetry 98 10/04/23 17:12 Oxygen Delivery Method Room Air 10/04/23 17:12 Medical Decision Making MDM Narrative Medical decision making narrative: Does not appear to have sustained a head injury. Appears at baseline cognitively. The back appears to be without evidence of an actual fracture in the ribs or at least has minimal discomfort here. I do not think any imaging would be needed today. We cleaned up the right forearm with Shur-Clens equivalent solution. I replaced the skin tears and covered with Tegaderm and nonstick Band-Aid antibiotic ointment for the 2 over the elbow. Everything then covered with Coban. See patient discharge plan for further discussion Discharge Plan Discharge Clinical Impression: Skin tear, Abrasion, Fall Patient Disposition: Home w/ Parent or Adult Condition: Improved Instructions: Fall Prevention (ED) Additional Instructions: Just leave this bandaged as is until late tomorrow and then you can have a look at it. The Tegaderm will peel at the edges. You might trim it away as it peels away/rolls up so it does not peel off completely. Hopefully stays covered over the open skin area for at least 4-5 days to allow for stabilization/healing. Could transition to Telfa/nonstick dressing at that point. If comes off completely in the next couple of days, I have included a larger Tegaderm dressing you can cut down as needed. Watch for spreading redness after 2 days, purulent drainage, marked increase in pain/swelling/redness. Activity Level: No Restrictions Discharge Diet: Regular Prescriptions: No Action carbidopa-levodopa 25-100 mg tablet 1 tab PO TID Patient Comments: TAKE 1 TABLET BY MOUTH THREE TIMES DAILY triamcinolone acetonide 0.1 % Cream 1 applic topical BID Qty: 15 0RF metoprolol tartrate 50 mg Tablet 25 mg PO BID Qty: 60 0RF metoprolol succinate 100 mg tablet extended release 24 hr PO polyethylene glycol 3350 17 gram/dose powder PO sertraline 50 mg tablet PO lisinopril 2.5 mg tablet 2.5 mg PO DAILY Follow Up/Referrals: Loli Miller MD [Primary Care Provider] - Stand Alone Forms: [employer] Info Instructions
--- OUTSIDE RECORDS SUMMARY | 2023-10-04 17:35 | XMS_ITS | Clinical Summary ---
Author Name Unknown Organization [facility] Address [place], [place] [address] Care Team Providers Care Nursing Consultant Name Role Phone Francisco Navarro MD Primary [...] Influenza for age 65+ 01/15/2024 Care Teams Nursing Consultant Relationship Specialty Start Date End Date Francisco Navarro MD [address] [place] [address] PCP - General Family Practice 02/23/22
== END 2023-10-04 18:04 | disposition home or self-care (01) ==
PROVIDERS: Emergency Provider Family Medicine; PCP Family Medicine
DX: S50.811A Abrasion of right forearm, initial encounter (principal); W01.0XXA Fall on same level from slipping, tripping and stumbling without subsequent striking against object, initial encounter
CPT/HCPCS: 99283; 99284

== ENCOUNTER 2023-12-27 11:04 | Outpatient (REF) | payer MEDICARE, SELFPAY ==
--- OUTSIDE RECORDS SUMMARY | 2023-12-27 11:07 | XMS_ITS | Clinical Summary ---
Author Organization [facility] Address [place], [place] [address] Care Team Providers Care Boat Hand Name Role Phone Francisco Navarro MD Primary [...] Influenza for age 65+ 01/15/2024 Care Teams Boat Hand Relationship Specialty Start Date End Date Francisco Navarro MD [address] [place] [address] PCP - General Family Practice 02/23/22
[2023-12-27 12:49] LABS: Basophils Absolute Auto 0.02 K/uL (0.00-0.30); Basophils Percent Auto 0.3 % (0.0-3.0); Eosinophils Absolute Auto 0.17 K/uL (0.00-0.50); Eosinophils Percent Auto 2.6 % (0.0-7.0); Hemoglobin* 13.8 gm/dL (13.5-17.5); Immature Granulocytes Abs Auto 0.01 K/uL (0.00-0.30); Immature Granulocytes Pct Auto 0.2 %; Lymphocytes Percent Auto 10.2 % (20-44); Mean Corpuscular HGB Conc 32 gm/dL (32-36); Mean Corpuscular Hemoglobin 30 pg (26-34); Mean Corpuscular Volume 94 fL (80-100); Monocytes Percent Auto 8.3 % (0.0-11.0); Neutrophils Percent Auto 78.4 % (42.0-72.0); Platelet Count* 218 K/uL (140-440); Red Blood Count 4.59 m/uL (4.30-5.90); White Blood Count* 6.64 K/uL (4.50-11.00)
[2023-12-27 12:51] LABS: Slide Review Reflex No
[2023-12-27 13:03] LABS: Chloride* 105 mmol/L (96-114); Potassium* 4.1 mmol/L (3.6-5.1); Sodium* 141 mmol/L (135-149)
[2023-12-27 13:06] LABS: Anion Gap 2 mEq/L (7-15); Blood Urea Nitrogen* 22 mg/dL (7-30); Calcium* 9.2 mg/dL (8.4-10.6); Carbon Dioxide* 34 mmol/L (20-32); Estimated Glomerular Filt Rate 76 ml/min; Glucose* 94 mg/dL (60-115)
== END 2023-12-27 11:05 | disposition home or self-care (01) ==
LOC: NPINS 11:04
PROVIDERS: PCP Family Medicine; Visit Provider Nurse Practitioner Gerontology
DX: Z91.81 History of falling (principal)
CPT/HCPCS: 80048; 85025

== ENCOUNTER 2023-12-29 10:41 | Outpatient (CLI) | payer MEDICARE, SELFPAY ==
--- OUTSIDE RECORDS SUMMARY | 2023-12-30 04:56 | XMS_ITS | Clinical Summary ---
Author Organization [employer] [facility] Address [place], [place] [address] Care Team Providers Care Commercial Photographer Name Role Phone Francisco Navarro MD Primary [...] Influenza for age 65+ 01/15/2024 Care Teams Commercial Photographer Relationship Specialty Start Date End Date Francisco Navarro MD [address] [place] [address] PCP - General Family Practice 02/23/22
== END 2023-12-29 10:42 | disposition home or self-care (01) ==
LOC: AMB 12-30 04:54
PROVIDERS: PCP Family Medicine; Visit Provider Family Medicine
DX: R41.0 Disorientation, unspecified (principal)

== ENCOUNTER 2024-03-27 14:36 | Outpatient (CLI) | payer MEDICARE, SELFPAY ==
--- OUTSIDE RECORDS SUMMARY | 2024-03-31 18:55 | XMS_ITS | Clinical Summary ---
Author Organization [employer] [facility] Address [place], [place] [address] Care Team Providers Care Carpenter Rough Name Role Phone Francisco Navarro MD Primary [...] some dysphagia possibly. PPS 60%. Pt recognized hospice rn by name. Patient/family had hospice informational consultation on 01/23/2024, but did not enroll at that time. At this time, pt does not appear to qualify as he is doing functionally quite well and does not appear to be in a terminal state. protective signal repairer notes concern for possible depression/grief with pt ( ~a year ago) as potential source for recent changes. protective signal repairer has communicated findings with pt/family and facility [...] Care Team Description 01/23/2024 Home Care Visit [facility] [address] [place] [address] Deonna Viera, [facility] - HOSPICE NON-ADMIT 01/23/2024 Home Care Visit [facility] [address] [place] [address] Lucas Aguero RN SN - HOSPICE NON-ADMIT 01/20/2024 Transcribe Orders [facility] [address] [place] [id number] Tricia Coyne NP from Last 3 Months [...] Influenza for age 65+ 01/15/2024 Care Teams Carpenter Rough Relationship Specialty Start Date End Date Francisco Navarro MD [address] [place] [address] PCP - General Family Practice 02/23/22
== END 2024-03-27 14:37 | disposition home or self-care (01) ==
LOC: AMB 03-31 18:54
PROVIDERS: PCP Family Medicine; Visit Provider Student in an Organized Health Care Education/Training Program
DX: S61.412A Laceration without foreign body of left hand, initial encounter (principal); W18.30XA Fall on same level, unspecified, initial encounter; Y92.129 Unspecified place in nursing home as the place of occurrence of the external cause
CPT/HCPCS: A0425; A0427

== ENCOUNTER 2024-03-27 14:45 | Emergency (ER) | payer MEDICARE, SELFPAY ==
[2024-03-27] VITALS (8 sets, daily range): BP systolic 123–147; BP diastolic 75–93; PULSE 49–77; RESP 16–22; TEMP 36.5; O2SAT 96–98
--- NOTE | 2024-03-27 14:53 | CRLHL7_ITS ---
For Patients: As a result of the Century Cures Act, medical imaging exams and procedure reports are released immediately into your electronic medical record. You may view this report before your referring provider. If you have questions, please contact your health care provider. INDICATION: Trauma. Hypothenar laceration. Injury on top of hand. TECHNIQUE: Left hand three views. COMPARISON: None. FINDINGS: No acute fracture or dislocation. Degenerative changes scattered throughout the hand and wrist. No additional osseous abnormality. Bandage material and soft tissue swelling about the distal 5th metacarpal. No radiopaque foreign body evident. IMPRESSION: No acute osseous abnormality. Dictated by Faheem Ellison MD @ 03/27/2024 4:16:47 PM (Electronically Signed)
--- NOTE | 2024-03-27 14:54 | CT_ITS ---
Patient: MARIAMA HOGAN Facility:?[facility] Patient ID:?[id number] Site Patient ID:?[id number]. Site :?[id number] Study:?CT-Head W/O-03/27/2024 3:53:18 PM Ordering Physician:Hue Dia Final Report: INDICATION: Fall, blunt trauma. TECHNIQUE: Noncontrast CT of the head with multiplanar reconstruction utilizing bone and soft tissue algorithms. COMPARISON: None available. FINDINGS: Small subdural hematoma tracking along the falx cerebri anteriorly (series 2, image 27). No evidence of transcortical edema. Mild diffuse parenchymal volume loss. No ventricular obstruction. No calvarial fracture. Bilateral pseudophakia. Mild mucosal thickening within the ethmoid sinuses. IMPRESSION: Small subdural hematoma tracking along the falx cerebri anteriorly. Findings were discussed with Dr. Dickey on 03/27/2024 at 4:05 p.m.. Please note that all CT scans at this facility use dose modulation, iterative reconstruction, and/or weight-based dosing when appropriate to reduce radiation dose to as low as reasonably achievable. Dictated by Patrick Eaton MD @ 03/27/2024 4:05:20 PM Signed by:?Patrick Eaton MD @03/27/2024 4:05:20 PM (Electronic Signature)
--- NOTE | 2024-03-27 14:54 | CRLHL7_ITS ---
For Patients: As a result of the Cures Act, medical imaging exams and procedure reports are released immediately into your electronic medical record. You may view this report before your referring provider. If you have questions, please contact your health care provider. Indication: Fall, blunt trauma. Technique: Noncontrast CT of the cervical spine with multiplanar reconstruction utilizing bone and soft tissue algorithms. Comparison: None available. Findings: No acute fracture or traumatic subluxation. No lytic or blastic lesion. Straightening of the normal cervical lordosis with grade 1 anterolisthesis at C2-C3 and C7-T1. Atherosclerotic calcification at the carotid bifurcations. No significant spinal canal stenosis. Multilevel neural foraminal narrowing, moderate-severe on the right at C3-C4. Impression: 1. No acute fracture or traumatic subluxation. 2. Advanced cervical spondylosis with multilevel neural foraminal narrowing, moderate-severe on the right at C3-C4. Please note that all CT scans at this facility use dose modulation, iterative reconstruction, and/or weight-based dosing when appropriate to reduce radiation dose to as low as reasonably achievable. Dictated by Patrick Eaton MD @ 03/27/2024 4:13:29 PM (Electronically Signed)
--- OUTSIDE RECORDS SUMMARY | 2024-03-27 15:05 | XMS_ITS | Clinical Summary ---
Author Organization [facility] Address [place], [place] [address] Care Team Providers Care Conciliator Name Role Phone Francisco Navarro MD Primary [...] Active Problems Problem Noted Date Diagnosed Date Encounter for hospice care discussion 01/23/2024 Overview (01/23/2024): Hospice Physician Narrative *PRELIMINARY* Primary hospice diagnosis: Parkinson's disease Complicating medical conditions (comorbid/secondary): Cognitive impairment, PAD/CAD, hypertension 3rd/unrelated category: Dxs: History of treated breast & laryngeal cancers, history of pulmonary embolism/deep vein thrombosis, history of tobacco use. Meds: ??. These diagnoses and medications do not affect pt's prognosis as they are stable and/or are easily managed and are unrelated to reasons/diagnoses/prognosis for which pt enrolled in hospice, or we have a formulary equivalent we can offer. Physician narrative: Kevin Neumann is a(n) 78 years old male who is being referred to hospice due to Parkinson's disease complicated by associated cognitive impairment as well as coronary artery disease/PAD. He has been declining lately with increased weakness and agitated/frustrated behaviors (called 911 so family took phone away). He has also been refusing medications. Facility provider has discussed situation with pt/family and made referral to hospice. Currently, pt is able to ambulate with walker without restriction. He is conversant and oriented. Pt is sleeping 10+ hours per day. Appetite is stable, without recent weight loss, currently weighing 186#. Skin is intact. There have been no recent infections. He is fully oriented. He is able to dress, bathe, and toilet himself. There is no incontinence. There is some dysphagia possibly. PPS 60%. Pt recognized hospital recruiter by name. Patient/family had hospice informational consultation on 01/23/2024, but did not enroll at that time. At this time, pt does not appear to qualify as he is doing functionally quite well and does not appear to be in a terminal state. title department manager notes concern for possible depression/grief with pt ( ~a year ago) as potential source for recent changes. title department manager has communicated findings with pt/family and facility provider. History of knee replacement, total, bilateral Dupuytren contracture 01/08/2021 DVT (deep venous thrombosis) 01/05/2016 Overview (01/05/2016): On Tamoxifen. 6 months coumadin. Erectile dysfunction 01/21/2015 Gout of big toe 01/21/2015 Health Maintenance 01/21/2015 Breast cancer 11/24/2010 Overview (11/24/2010): Finished radiation therapy in 2009. On tamoxifen. Pure hypercholesterolemia 11/24/2010 HTN (hypertension) 11/24/2010 Paroxysmal supraventricular tachycardia 11/25/19 11 Resolved Problems Problem Noted Date Diagnosed Date Resolved Date Paroxysmal SVT (supraventricular tachycardia) 12/25/19 11 01/07/2011 Encounters Date Type Department Care Team Description 01/23/[address] [facility] [address] [place] [phone] Deonna Viera, [facility] ADVERTISING INSERTER - HOSPICE NON-ADMIT 01/23/[address] [facility] [address] [place] [address] Lucas Aguero RN SN - HOSPICE NON-ADMIT 01/20/[address] [facility] [address] [place] [id number] Tricia Coyne NP from Last 3 Months Family History Medical History Relation Name Comments [...] Sign Reading Time Taken Comments Blood Pressure 155/91 01/23/2024 11:44 AM CDT Pulse 60 01/23/2024 11:44 AM CDT Temperature 36.8 ??C (98.2 ??F) 01/23/2024 11:44 AM C DT Respiratory Rate 16 01/23/2024 11:44 AM CDT Oxygen Saturation 95% 01/23/2024 11:44 AM CDT Inhaled Oxygen Concentration - - [...] 65+ (1 of 1 - PCV) 2008 RSV vaccine for adults or pr egnancy (1 - 1-dose 75+ series) 2018 BMI (ht and wt on same day) for age 18+ 01/08/2022 0 01/08/2021, 01/05/2016 COVID-19 vaccine series (2 - season) 2024 01/12/2021 Influenza for age 65+ 01/15/2024 Care Teams Conciliator Relationship Specialty Start Date End Date Francisco Navarro MD [address] [place] [address] PCP - General Family Practice 02/23/22
--- NOTE | 2024-03-27 17:30 | ED.GENADULT ---
HPI - General Adult General Chief complaint: Fall/Minor Trauma Stated complaint: Head lac Time Seen by Provider: 03/27/24 14:53 History of Present Illness HPI narrative: This is an 78-year-old male with history of Parkinson's and dementia was brought to the ER today by paramedics after he had a witnessed fall at his memory care unit this afternoon at [facility]. Report from paramedics is that he was walking with his walker and somehow got tangled up and then fell to the floor. He cut the palm of his left hand on his walker and then struck his forehead against the floor as he fell. No known loss of consciousness. Dressing was applied before the paramedics picked him up. He has not had any active bleeding. No other complaints. He has some abrasions on his forehead. He is not anticoagulated. Paramedics would like us to call his family with updates. History from the patient is somewhat limited because of his dementia but he is able to tell me that he was either going to or coming from a movie and he was in the hallway when something was in front of his walker. He got tangled up and he fell. He has no complaints other than his left hand hurts. He has intact distal sensory function in his fingers. Normal finger wiggling. He has abrasions on his forehead but no headache. No facial pain. He says his vision is normal. Related Data Home Medications ?Medication ?Instructions ?Recorded ?Confirmed carbidopa 25 mg-levodopa 100 mg 2 tab PO BID 02/22/22 03/27/24 tablet lisinopril 2.5 mg tablet 2.5 mg PO DAILY 07/03/23 03/27/24 metoprolol succinate 100 mg 150 mg PO DAILY 07/03/23 03/27/24 tablet,extended release 24 hr polyethylene glycol 3350 17 17 g PO BID 07/03/23 03/27/24 gram/dose oral powder sertraline 50 mg tablet 25 mg PO DAILY 07/03/23 03/27/24 lidocaine 4 % topical patch 1 patch topical DAILY pain 03/27/24 03/27/24 quetiapine 25 mg tablet 12.5 mg PO DAILY 03/27/24 03/27/24 sennosides 8.6 mg tablet (senna) 17.2 mg PO QAM 03/27/24 03/27/24 Previous Rx's ?Medication ?Instructions ?Recorded triamcinolone acetonide 0.1 % 1 applic topical BID #15 grams 03/01/22 topical cream metoprolol tartrate 50 mg tablet 25 mg (1/2 x 50 mg) PO BID #60 tabs 05/23/22 Allergies Allergy/AdvReac Type Severity Reaction Status Date / Time No Known Drug Allergies Allergy Verified 03/27/24 14:52 [facility] Medical History Atrial flutter ?I48.92 - Unspecified atrial flutter (ICD-10) History of pulmonary embolism ?Z86.711 - Personal history of pulmonary embolism (ICD-10) Dysphagia ?R13.10 - Dysphagia, unspecified (ICD-10) DVT of leg (deep venous thrombosis) ?I82.409 - Acute embolism and thrombosis of unspecified deep veins of unspecified lower extremity (ICD-10) Pleural effusion ?J90 - Pleural effusion, not elsewhere classified (ICD-10) Atrial flutter with rapid ventricular response ?I48.92 - Unspecified atrial flutter (ICD-10) Parkinsons ?G20 - Parkinson's disease (ICD-10) History of paroxysmal supraventricular tachycardia ?Z86.79 - Personal history of other diseases of the circulatory system (ICD-10) History of DVT (deep vein thrombosis) ?Z86.718 - Personal history of other venous thrombosis and embolism (ICD-10) Smoking greater than 40 pack years ?F17.210 - Nicotine dependence, cigarettes, uncomplicated (ICD-10) Hypertension ?I10 - Essential (primary) hypertension (ICD-10) Hyperlipidemia ?E78.5 - Hyperlipidemia, unspecified (ICD-10) History of breast cancer in male ?Z85.3 - Personal history of malignant neoplasm of breast (ICD-10) Community acquired pneumonia ?J18.9 - Pneumonia, unspecified organism (ICD-10) Surgical History H/O cardiac radiofrequency ablation ?Z98.890 - Other specified postprocedural states (ICD-10) H/O hemorrhoidectomy ?Z98.890 - Other specified postprocedural states (ICD-10) History of mastectomy ?Z90.10 - Acquired absence of unspecified breast and nipple (ICD-10) History of bilateral knee replacement ?Z96.653 - Presence of artificial knee joint, bilateral (ICD-10) Social History Narrative: 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 Previously heavy smoker. [facility] Highest level of school completed/degree received: high school graduate Smoking Status: Former smoker Do you use any of these nicotine containing products: None How often do you have a drink containing alcohol: 2-3 times a week AUDIT-C Alcohol total score: 3 Non-prescribed substance use: denies use Caffeine: Yes service: No Exam Narrative: Exam Narrative: Primary Survey: A- patent. Speaking clearly. Phonation normal. No stridor. B- breathing easily. Lung sounds clear and equal. Oxygen saturation normal on room air C- no active bleeding. Blood pressure stable. Symmetric pulses and cap refill in 4 extremities. D- alert and oriented to person but not date. He knows he has been for 61 years, but it turns out his 1 year ago. Short-term memory is limited by dementia.. GCS 15. No focal deficits. Constitutional: Appears well-developed and well-nourished. Alert. Conversant but at times speech is slightly slurred, this is apparently his baseline.. Non toxic. HENT: Head: He has 2 forehead superficial abrasions without any underlying hematoma or skull fracture. Exam head trauma. Nose: Nose normal. Mouth/Throat: Oral mucosa is clear and moist. no trismus. Pharynx normal. Tonsils symmetric. No tonsillar enlargement, erythema, or exudate. Eyes: Conjunctivae normal. EOM normal. Pupils equal, round, and reactive to light. No scleral icterus. Neck: Normal range of motion. Neck supple. No tracheal deviation present. No obvious posterior midline tenderness or step-off but C-spine cannot be cleared by Clinical I tear your because of his dementia and distracting injury in his left hand. Cardiovascular: Normal rate, regular rhythm. No gallop. No friction rub. No murmur heard. Symmetric radial artery pulses Pulmonary/Chest: Effort normal. No stridor. No respiratory distress. No wheezes. No rales. No rhonchi . No tenderness. Abdominal: Soft. Bowel sounds normal. No distension. No mass. No tenderness. No rebound. No guarding. Musculoskeletal: RUE: Normal range of motion. No tenderness. No deformity LUE: Normal range of motion in his shoulder, elbow, wrist, fingers.. Clavicle, shoulder, humerus, elbow, forearm, wrist are nontender. He has a 6 cm v-shaped laceration affecting the palmar surface of the hypothenar eminence of his left hand with the tip of the V toward the center of his palm. Intact flexor and extensor tendon function of the 5, 4, 3, 2 fingers. No arterial bleeding. Intact ulnar, median, radial, digital nerve sensory function. RLE: Normal range of motion. No edema. No tenderness. No deformity LLE: Normal range of motion. No edema. No tenderness. No deformity Neurological: Alert and oriented to person, but not place or date. This is his baseline for dementia. Mental status normal. Attention normal. Alert and oriented x3. GCS 15. Memory normal. Cognition normal. Cranial Nerves intact II-XII except I did not formally test gag or visual acuity. EOMI. Palate elevates symmetrically and tongue protrudes in the midline. Strength: 5/5 trapezius on the right and left 5/5 deltoid on the right and left 5/5 biceps on the right and left 5/5 triceps on the right and left 5/5 reed polisher on the right and left 5/5 thumb opposition on the right and left 5/5 finger abduction on the right and left 5/5 hip flexors (L3) on the right and left 5/5 quadriceps (L4) on the right and left 5/5 tibialis anterior on the right and left 5/5 EHL (L5) on the right and left 5/5 gastrocnemius (S1) on the right and left 5/5 hamstring on the right and left Sensation intact to light touch in both upper extremities (C4-T1) Sensation intact to light touch in Both lower extremities (L4-S1). Finger to nose and coordination normal. Gait Not assessed Skin: Skin is warm and dry. No rash noted. No pallor. Normal capillary refill. Psychiatric: Normal mood. Normal affect. Const: Vital Signs, click to edit/add: Vital Signs - 24 hr 03/27/24 14:59 03/27/24 16:28 03/27/24 16:30 Temperature 97.7 F Pulse Rate 55 L 59 L Pulse Rate [Pulse Oximeter] 77 Respiratory Rate 22 Blood Pressure Blood Pressure [Le ft Upper Arm] 147/93 H Pulse Oximetry 98 97 98 Oxygen Delivery Me thod Room Air 03/27/24 16:32 03/27/24 16:41 03/27/24 16:45 Temperature Pulse Rate 49 L 57 L 75 Pulse Rate [Pulse Oximeter] Respiratory Rate 16 Blood Pressure 134/83 140/75 H Blood Pressure [Le ft Upper Arm] Pulse Oximetry 98 98 98 Oxygen Delivery Me thod 03/27/24 16:52 03/27/24 17:00 Temperature Pulse Rate 77 57 L Pulse Rate [Pulse Oximeter] Respiratory Rate Blood Pressure 123/78 Blood Pressure [Le ft Upper Arm] Pulse Oximetry 96 96 Oxygen Delivery Me thod Course Vital Signs Vital signs: Initial Vital Signs Temperature 97.7 F 03/27/24 14:59 Temperature Source Temporal Artery Scan 03/27/24 14:59 Pulse Rate 77 03/27/24 14:59 Respiratory Rate 22 03/27/24 14:59 Blood Pressure 147/93 H 03/27/24 14:59 Blood Pressure Mean 111 H 03/27/24 14:59 Blood Pressure Position Semi-Fowlers 03/27/24 14:59 Pulse Oximetry 98 03/27/24 14:59 Oxygen Delivery Method Room Air 03/27/24 14:59 Vital Signs Temperature 97.7 F 03/27/24 14:59 Pulse Rate 77 03/27/24 14:59 Respiratory Rate 22 03/27/24 14:59 Blood Pressure 147/93 H 03/27/24 14:59 Pulse Oximetry 98 03/27/24 14:59 Oxygen Delivery Method Room Air 03/27/24 14:59 Temperature 97.7 F 03/27/24 14:59 Pulse Rate 57 L 03/27/24 17:00 Respiratory Rate 16 03/27/24 16:41 Blood Pressure 123/78 03/27/24 16:52 Pulse Oximetry 96 03/27/24 17:00 Oxygen Delivery Method Room Air 03/27/24 14:59 Medical Decision Making MDM Narrative Medical decision making narrative: 78-year-old gentleman with history of dementia and Parkinson's disease presents to the ER today with a ground level fall. He apparently got tangled up was with with his walker and then fell forward. He did suffer a laceration of the palmar surface of his left hand. This was a fairly large v-shaped laceration but fortunately he is neurovascularly intact and has no tendon injury. There is no evidence at this time to suggest any associated fracture or foreign body. There is no evidence to suggest tendon or arterial injury and patient is neurologically in tact. The patient is to follow up for suture removal as instructed in 10 days. Indications to seek urgent reevaluation and signs of infection (including but not limited to increasing pain, redness, swelling, fevers, and drainage) were reviewed. Tetanus is up-to-date. This is a clean and non-contaminated wound in which prophylactic antibiotics are not indicated. An understanding of the discharge instructions and need for follow up were verbally confirmed. He did strike his head when he fell as evidence by abrasions on his forehead. We did obtain a noncontrast head CT because of the head trauma and age. CT scan does show a small fall seen subdural hematoma. This is acute. However he is not having any headache. He is at his baseline neurologic function. C-spine CT is obtained because of mechanism is fortunately negative for any acute injury. Upon discovering the subdural hematoma, I contacted this patient's family members by phone. Discussed in detail with his daughter, Hallie. We discussed that at this point the subdural is small and not causing any shift or mass effect on his brain and does not require any immediate, emergent intervention. However he is at risk for expansion. Our typical course of action would be to transfer to a neuro surgical capable hospital for admission and observation overnight with plans for serial CTs. If they bleed were to expand, may potentially require brain surgery. However, with the patient's general level of function and dementia, we had a discussion of goals of care. His daughter indicates that they really would not want the patient to undergo brain surgery, even if there were life-threatening intracranial hemorrhage. They would offer comfort care. With that thought in mind, there really is no reason to transfer to a neurosurgically capable facility. We discussed possible admission here in [place] for neuro monitoring and repeat CT in the morning. However, even if the bleed expands, no intervention other than comfort care would be undertaken. At this point he is asymptomatic. Using shared decision making we decided that really it may be reasonable to send him back to his memory care unit, where he is familiar with the environment and people there. This would be most comfortable for the patient. They can observe in there. If he develops any symptoms such as headache, vomiting, or worsening confusion, and if he needs treatment they can return to the ER right away. Therefore we did not transfer this patient to [facility] or admit to the hospital. I did contact the patient's facility. I attempted to get through to the nurses from [facility] but they did not answer messages that I left. I was able to contact the tech from the memory care unit and discussed the situation in detail with her. Reviewed instructions that if he does develop headache, vomiting, or unusual behaviors, that they should contact nursing staff right away and if necessary bring him back to the ER. His family came here to the ER and they were comfortable transferring back to [place] in by private car. Imaging Data XR hand: Attestation: I have reviewed the pertinent imaging results. Radiologist's impression: IMPRESSION: No acute osseous abnormality. CT scan - head: Attestation: I have reviewed the pertinent imaging results. My impression: Phone call from [facility] indicating a very small subdural without any midline shift or mass effect. Radiologist's impression: IMPRESSION: Small subdural hematoma tracking along the falx cerebri anteriorly. CT C-spine: Attestation: I have reviewed the pertinent imaging results. Radiologist's impression: Impression: 1. No acute fracture or traumatic subluxation. 2. Advanced cervical spondylosis with multilevel neural foraminal narrowing, moderate-severe on the right at C3-C4. Discharge Plan Discharge Clinical Impression: Acute subdural hematoma, Laceration of hand, left Instructions: Laceration (ED) Additional Instructions: There is a small area of bleeding inside his dizzy colors brain, adjacent to the wrappings around the outside of his brain (this is called a subdural hematoma). This is an injury from his fall. Right now it is small and does not require any surgery or treatment. However, monitor his condition carefully. He is at risk for expanding bleeding and if he develops worsening headache, worsening confusion, nausea or vomiting, seizures, or any problems, please bring him back to the ER right away. For his hand laceration, please keep the dressing clean and dry tonight. Tomorrow it is okay to change the dressing. Wash gently with warm water. After it is clean dry generally with gauze. After it is dry reapply antibiotic ointment and a clean sterile dressing to cover the wound. Keep it covered and clean. Clean it once gently every day. Please follow-up to have stitches removed in 10 days. Watch for signs of infection in his hand such as redness, swelling, or pus, and if you have any concerns for infection or problem with his hand, please contact his physician or return to the ER immediately to be rechecked. Prescriptions: No Action carbidopa-levodopa 25-100 mg tablet 2 tab PO BID triamcinolone acetonide 0.1 % Cream 1 applic topical BID Qty: 15 0RF lidocaine 4 % adhesive patch,medicated 1 patch topical DAILY Rx Instructions: left shoulder quetiapine 25 mg tablet 12.5 mg PO DAILY sennosides [senna] 8.6 mg tablet 17.2 mg PO QAM metoprolol tartrate 50 mg Tablet 25 mg PO BID Qty: 60 0RF metoprolol succinate 100 mg tablet extended release 24 hr 150 mg PO DAILY polyethylene glycol 3350 17 gram/dose powder 17 g PO BID sertraline 50 mg tablet 25 mg PO DAILY lisinopril 2.5 mg tablet 2.5 mg PO DAILY Follow Up/Referrals: Loli Miller MD [Primary Care Provider] - Stand Alone Forms: [facility] Info Instructions Procedures Laceration Left hand palmar laceration: Pre procedure diagnosis: Left hand laceration Verification/time out: correct patient and correct site Site: upper extremity (V shaped 6cm laceration on hypothenar eminence of left hand with exposed adipose tissure) Side (If applicable): left Size (cm): 6 Description: flap (V shaped) Depth: simple, single layer Local Anesthetic: bupivacaine 0.25% Amount of anesthesia used (mL): 10 Pre-repair: wound explored, irrigated extensively and deep structures intact Skin layer closed with: nylon Size (cm): 5-0 Number of sutures: 14 Technique: simple, interrupted
== END 2024-03-27 18:35 | disposition home or self-care (01) ==
PROVIDERS: Emergency Provider Emergency Medicine; PCP Family Medicine
DX: S06.5XAA Traumatic subdural hemorrhage with loss of consciousness status unknown, initial encounter (principal); S61.412A Laceration without foreign body of left hand, initial encounter; W18.30XA Fall on same level, unspecified, initial encounter
CPT/HCPCS: 12002; 70450; 72125; 73130; 99283; 99284